=== PATIENT | male | born 1980 | race Caucasian/White ===

== ENCOUNTER 2017-08-12 16:39 | Emergency (ER) | payer MEDICAID, SELFPAY ==
[2017-08-12 17:05] VITALS: BP 146/92; PULSE 90; RESP 20; TEMP 37.2; O2SAT 98; BMI 20.7
--- NOTE | 2017-08-12 17:26 | HMH.EDUTC ---
[facility] [place] Clinical Impression: Sinusitis, acute Qualifiers: Sinusitis location: pansinusitis Recurrence: not specified as recurrent Qualified Code(s): J01.40 - Acute pansinusitis, unspecified Disposition: Home, Self-Care Condition on Discharge: Good Instructions: DI for Sinusitis Additional Instructions: * I understand you do not like injections and would rather not have an injection of steroid and antibiotic today. We discussed my concerns based on your symptom and why I suggested the injection. You can try pills first but if no improvement or ANY new or worsening symptoms, you need to follow up immediatley. * Start antibiotic and be sure to take as ordered for the FULL length of time even if you feel better. Sinus infections do not get better overnight. It may take 2-3 days to notice much improvement so be sure to use conservative measures as discussed for symptoms. * augmentin can cause GI side effects. Probiotics help prevent these symptoms. Ask the local pharmacist to help you find an over the counter probiotic * Start steroid today. * Flonase 2 sprays each nostril daily to help with nasal congestion, sinus and ear pressure/inflammation * Encourage fluids, water, gatorade, powerade, pedialyte if infant/toddler/child * warm salt water gargles * warm fluids * sore throat lozenges * sleep elevated * humidifier/vaporizer * sinus rinses Prescriptions: Amoxicillin/Potassium Clav [Augmentin 875-125 Tablet] 1 tab PO Q12H #20 tab Fluticasone Propionate [Flonase 50mcg nasal spray 16gm] 2 spr NS DAILY #1 bottle predniSONE [Prednisone 20mg Tab] 20 mg PO BID #6 tab Referrals: Aaron Ojeda MD [Primary Care Provider] - (Return to [facility] immediately for any new or worsening symptoms this but if no noticeable improvement by Tuesday, follow up with primary care. ) Time of Disposition: 17:32 Medical Decision Making Vital Signs: 08/12/17 17:05 Temperature 98.9 F Temperature Source Temporal Artery Scan Pulse Rate [Right Brachial] 90 Respiratory Rate 20 Blood Pressure [Right Arm] 146/92 Blood Pressure Mean [Right Arm] 110 Blood Pressure Source [Right Arm] Automatic Cuff Blood Pressure Position [Right Arm] Sitting 02 Sat by Pulse Oximetry 98 Oxygen Delivery Method Room Air - Lab Data Lab results reviewed: Yes: I reviewed the patient's lab results. Lab Results 08/12/17 17:05: Influenza Type A Ag Negative, Influenza Type B Ag Negative - [place] Inquiry Pt receiving controlled substance: No [facility] [place] - General Stated complaint: dental&sinus Time Seen by Provider: 08/12/17 17:07 Mode of Arrival: Ambulatory Source of Information: Patient Limitations: No Limitations Description of Symptoms (Recalled from Triage Doc. by RN): MARTINEZ, RUNNY NOSE, RT SIDE OF GUMS SORE HEENT Symptoms (Recalled from RN notes): Yes (MARTINEZ, RUNNY NOSE, RT SIDE OF GUMS SORE) Resp Symptoms (Recalled from RN notes): No Skin Symptoms (Recalled from RN notes): No MS Symptoms (Recalled from RN notes): No Functional Status (Recalled from RN notes): N/A - History of Present Illness Provider Complaint: Here w/ unknown relationship adult female c/o sinus pressure and dental pain right side only. Does not have any teeth. Full mouth extraction 10 years ago. Feels just like dry socket only on the right. Both upper and lower. Started w/ rhinorrhea, nasal congestion, PND over one week ago. Sinus pressure and pain started yesterday. Dental pain and lips feeling numb new today, only on right. Denies vision change, confusion, weakness. Tylenol once this morning but otherwise, hasn't taken or tried anything else. That did dull the sinus pain but came back. + smoker. - Related Data Previous Rx's Medication Instructions Recorded Amoxicillin/Potassium Clav 1 tab PO Q12H #20 tab 08/12/17 [Augmentin 875-125 Tablet] Fluticasone Propionate [Flonase 2 spr NS DAILY #1 bottle 08/12/17 50mcg nasal spray 16gm] predniSONE [Prednisone 20mg 20 mg
[2017-08-12 17:27] LABS: UTC Influenza A Antigen Negative (Negative); UTC Influenza B Antigen Negative (Negative)
--- NOTE | 2017-08-12 17:30 | ED_ITS ---
[facility] [place]ression: Sinusitis, acute Qualifiers: Sinusitis location: pansinusitis Recurrence: not specified as recurrent Qualified Code(s): J01.40 - Acute pansinusitis, unspecified Disposition: Home, Self-Care Condition on Discharge: Good Instructions: DI for Sinusitis Additional Instructions: * I understand you do not like injections and would rather not have an injection of steroid and antibiotic today. We discussed my concerns based on your symptom and why I suggested the injection. You can try pills first but if no improvement or ANY new or worsening symptoms, you need to follow up immediatley. * Start antibiotic and be sure to take as ordered for the FULL length of time even if you feel better. Sinus infections do not get better overnight. It may take 2-3 days to notice much improvement so be sure to use conservative measures as discussed for symptoms. * augmentin can cause GI side effects. Probiotics help prevent these symptoms. Ask the local pharmacist to help you find an over the counter probiotic * Start steroid today. * Flonase 2 sprays each nostril daily to help with nasal congestion, sinus and ear pressure/inflammation * Encourage fluids, water, gatorade, powerade, pedialyte if /toddler/ child * warm salt water gargles * warm fluids * sore throat lozenges * sleep elevated * humidifier/vaporizer * sinus rinses Prescriptions: Amoxicillin/Potassium Clav [Augmentin 875-125 Tablet] 1 tab PO Q12H #20 tab Fluticasone Propionate [Flonase 50mcg nasal spray 16gm] 2 spr NS DAILY #1 bottle predniSONE [Prednisone 20mg Tab] 20 mg PO BID #6 tab Referrals: Aaron Ojeda MD [Primary Care Provider] - (Return to [facility] immediately for any new or worsening symptoms this but if no noticeable improvement by Tuesday, follow up with primary care. ) Time of Disposition: 17:32 Medical Decision Making Vital Signs: 08/12/17 17:05 Temperature 98.9 F Temperature Source Temporal Artery Scan Pulse Rate [Right Brachial] 90 Respiratory Rate 20 Blood Pressure [Right Arm] 146/92 Blood Pressure Mean [Right Arm] 110 Blood Pressure Source [Right Arm] Automatic Cuff Blood Pressure Position [Right Arm] Sitting 02 Sat by Pulse Oximetry 98 Oxygen Delivery Method Room Air - Lab Data Lab results reviewed: Yes: I reviewed the patient's lab results. Lab Results 08/12/17 17:05: Influenza Type A Ag Negative, Influenza Type B Ag Negative - [place] Inquiry Pt receiving controlled substance: No [facility] [place] - General Stated complaint: dental&sinus Time Seen by Provider: 08/12/17 17:07 Mode of Arrival: Ambulatory Source of Information: Patient Limitations: No Limitations Description of Symptoms (Recalled from Triage Doc. by RN): MARTINEZ, RUNNY NOSE, RT SIDE OF GUMS SORE HEENT Symptoms (Recalled from RN notes): Yes (MARTINEZ, RUNNY NOSE, RT SIDE OF GUMS SORE) Resp Symptoms (Recalled from RN notes): No Skin Symptoms (Recalled from RN notes): No MS Symptoms (Recalled from RN notes): No Functional Status (Recalled from RN notes): N/A - History of Present Illness Provider Complaint: Here w/ unknown relationship adult female c/o sinus pressure and dental pain right side only. Does not have any teeth. Full mouth extraction 10 years ago. Feels just like dry socket only on the right. Both upper and lower. Started w/ rhinorrhea, nasal congestion, PND over one week ago. Sinus pressure and pain started yesterday. Dental pain and lips feeling numb new today, o
[2017-08-12 17:44] VITALS: BP 146/92; PULSE 90; RESP 20; TEMP 37.2; O2SAT 98
== END 2017-08-12 17:45 | disposition home or self-care (01) ==
PROVIDERS: Emergency Provider Nurse Practitioner Family; Family Provider Internal Medicine Adolescent Medicine; PCP Internal Medicine Adolescent Medicine
DX: J01.40 Acute pansinusitis, unspecified (principal)
CPT/HCPCS: 87804; 99202

== ENCOUNTER 2018-11-02 21:32 | Inpatient (IN) ==
[2018-11-02 22:03] LABS: Basophils # 0.1 K/mm3 (0-0.2); Basophils % 0.3 % (0.1-2.0); Eosinophils # 0.1 K/mm3 (0.0-0.4); Eosinophils % 0.5 % (0.1-12.0); Hematocrit 52.7 % (42.0-52.0); Lymphocytes # 2.8 K/mm3 (0.7-4.5); Lymphocytes % 13.5 % (10-50); Mean Corpuscular HGB Conc 34.9 g/dL (31.8-35.4); Mean Corpuscular Hemoglobin 31.3 pg (27.0-31.2); Mean Corpuscular Volume 89.7 fl (80-94); Mean Platelet Volume 7.1 fl (7.4-10.4); Monocytes # 1.4 K/mm3 (0.1-1.0); Monocytes % 6.8 % (1.7-9.3); Neutrophils # 16.7 K/mm3 (1.8-7.8); Neutrophils % 78.9 % (37.0-80.0); Platelet Count 363 K/mm3 (142-424); Red Blood Count 5.88 M/mm3 (4.60-6.20); Red Cell Distribution Width 14.1 % (11.5-17.5); White Blood Count 21.1 K/mm3 (4.8-10.8)
[2018-11-02 22:08] LABS: Albumin Level 4.2 gm/dL (3.4-5.0); Albumin/Globulin Ratio 1.1 (1.1-1.8); Anion Gap 16.6 mEq/L (5-15); Bilirubin,Total 0.8 mg/dL (0.2-1.0); C-Reactive Protein 4.8 mg/L (0.0-0.9); Globulin 3.7 gm/dl (1.3-3.2); Potassium 3.6 mmoL/L (3.5-5.1); Total Protein,Serum 7.9 gm/dL (6.4-8.2)
[2018-11-02 22:38] LABS: Lymphocytes % 21 % (10-50); Monocytes % 3 % (2-9); Neutrophils % 76 % (42-76); Total Cells Counted 100
[2018-11-02 22:39] LABS: RBC Morphology Normal
--- NOTE | 2018-11-02 23:08 | Emergency Department Note ---
ED Disposition Clinical Impression: Appendicitis, acute Qualifiers: Acute appendicitis type: unspecified acute appendicitis type Qualified Code(s): K35.80 - Unspecified acute appendicitis Disposition: Admitted As Inpatient Condition on Discharge: Good Referrals: Aaron Ojeda MD [Primary Care Provider] - - Critical Care Critical Care Time: No Attestation: On 11/02/18, the high probability of a clinically significant, sudden or life threatening deterioration of the following system(s) required my full and direct attention, intervention and personal management. The time I documented below is in addition to time spent performing reported procedures but includes the following listed in this critical care notation. Medical Decision Making - Medical Records Medical records reviewed: Yes: I reviewed the patient's medical records. - [place] Inquiry Pt receiving controlled substance: No Vital Signs: 11/02/18 21:33 11/02/18 22:29 Temperature 98.3 F 98.3 F Temperature Source Oral Oral Pulse Rate [Right Brachial] 112 H 88 Respiratory Rate 18 18 Blood Pressure [Right Arm] 140/98 H 128/78 Blood Pressure Mean [Right Arm] 112 94 Blood Pressure Source [Right Arm] Automatic Cuff Automatic Cuff Blood Pressure Position [Right Arm] Sitting Sitting 02 Sat by Pulse Oximetry 97 98 Oxygen Delivery Method Room Air Room Air - Lab Data Lab results reviewed: Yes: I reviewed the patient's lab results. Lab Results 11/02/18 21:44: WBC 21.1 H*, RBC 5.88, Hct 52.7 H, MCV 89.7, MCH 31.3 H, MCHC 34.9, RDW 14.1, Plt Count 363, MPV 7.1 L, Neut % (Auto) 78.9, Lymph % (Auto) 13.5, [place] % (Auto) 6.8, Eos % (Auto) 0.5, Baso % (Auto) 0.3, Neut # (Auto) 16.7 H, Lymph # (Auto) 2.8, [place] # (Auto) 1.4 H, Eos # (Auto) 0.1, Baso # (Auto) 0.1, Total Counted 100, Neutrophils % (Manual) 76, Lymphocytes % (Manual) 21, Monocytes % (Manual) 3, Platelet Estimate Normal, RBC Morphology Normal 11/02/18 21:44: Sodium 138, Potassium 3.6, Chloride 102, Carbon Dioxide 23, Anion Gap 16.6 H, BUN 7, Creatinine 1.03, Estimated Creat Clear 103, Estimated GFR 81, Est GFR ( Amer) 98, Glucose 102, Calcium 9.0, Total Bilirubin 0.8, AST 10 L, ALT 34, Alkaline Phosphatase 82, C-Reactive Protein 4.8 H, Total Protein 7.9, Albumin 4.2, Globulin 3.7 H, Albumin/Globulin Ratio 1.1, Amylase 42, Lipase 78 11/02/18 21:44: ESR 6 Result diagrams: 11/02/18 21:44 11/02/18 21:44 Orders (Tests/Meds): ED MEDICATIONS Generic Name Dose Route Start Last Admin Trade Name Freq PRN Reason Stop Dose Admin Sodium Chloride 1,000 mls @ 999 mls/hr 11/02/18 21:45 11/02/18 21:55 Sod Chlor 0.9% 1000ml Bag IV 11/02/18 22:45 999 mls/hr .Q1H1M MAEGAN Administration Discontinued Medications Generic Name Dose Route Start Last Admin Trade Name Freq PRN Reason Stop Dose Admin Ioversol 75 ml 11/02/18 22:19 11/02/18 22:20 Rad-Optiray 350 100ml Vial IV 11/02/18 22:20 75 ml ONCE ONE Administration Protocol Ketorolac Tromethamine 30 mg 11/02/18 21:44 11/02/18 21:55 Toradol 30mg/Ml Vial IV 11/02/18 21:45 30 mg ONCE ONE Administration Ondansetron HCl 4 mg 11/02/18 21:44 11/02/18 21:55 Zofran 4mg/2ml Vial IV 11/02/18 21:45 4 mg ONCE ONE Administration Sodium Chloride 10 ml 11/02/18 22:19 11/02/18 22:20 Rad-Saline Flush 10ml Syringe IV 11/02/18 22:20 10 ml ONCE ONE Administration ORDERS Category Date Time Status CT abdomen pelvis w con Stat Cat Scan 11/02/18 21:44 Taken Complete Blood Count Auto Diff Stat Lab 11/02/18 21:44 Results Urinalysis and Microscopic Stat Lab 11/02/18 21:43 Ordered - CT Data CT Scan: Abdomen, Pelvis Time Received: 23:[address] Reviewed: Yes: I have viewed the radiologist's interpretation Preliminary Findings: Abnormal (acute appendecitis ) - Physician Consults Physician Consulted: cash Reason -: Admission General Adult HPI - General Chief complaint: PAIN Stated complaint: r SIDE PAIN Time Seen by Provider: 11/02/18 21:50 Mode of Arrival: Family Vehicle Source of Information: Patient, Spouse, Medical Record Limitations: No Limitations Description of Symptoms (Recalled from ER Triage Doc. by RN): Pt c/o RLQ abd pain that started last night. No other symptoms reported at this time. - History of Present Illness HPI narrative: progressive pain rt lower abd with dec po intake Onset (ago): day(s) Location: abdomen Severity: moderate Associated symptoms: denies other symptoms Treatments prior to arrival: none - Related Data Home Medications Medication Instructions Recorded Confirmed No Known Home Medications 11/02/18 11/02/18 Allergies Allergy/AdvReac Type Severity Reaction Status Date / Time No Known Allergies Allergy Verified 11/02/18 21:42 [facility] History - Hepatitis A Screen Drug use history?: No High risk sexual behaviors?: No History of sexually transmitted infection?: No Currently employed?: No Childcare worker?: No Do you have indoor plumbing?: Yes Do you have electricity?: Yes Attestation statement:: This patient has been screened for Hepatitis A risk factors. I have reviewed the patient's past medical history: Yes Medical History: Reports:: Anxiety (especially involving needles), Chronic Obstructive Pulmonary Disease (COPD) Denies:: Cancer, Diabetes Mellitus Type 1, Diabetes Mellitus Type 2, MRSA Other Surgeries: Yes: No Previous Surgery, Hernia Repair Amputation: No Fractures: No - Social History Smoking Status: Current every day smoker Tobacco Type: cigarettes # Packs/Day (cigarettes): 1 Alcohol Intake: current Alcohol Intake Frequency:: holidays/special occasions only Occupational Status: employed Housing: house - Psychiatric History Expresses thoughts of harming self/others: None Suicide Plan Description: No Plan Pschychiatric History:: Reports:: Anxiety (especially involving needles) ROS Obtained: Yes All systems reviewed & no additional complaints - Constitutional Constitutional: Denies fever(s) - Eyes Eyes: Denies change in vision - ENT Ears, Nose, Mouth, and Throat: Denies sore throat - Cardiovascular Cardiovascular: Denies chest pain - Respiratory Respiratory: No cough - Gastrointestinal Gastrointestingal: Reports: as per HPI, abdominal pain, nausea, vomiting - Genitourinary Male Genitourinary: Denies hematuria - Musculoskeletal Musculoskeletal: Denies joint swelling - Integumentary/Breasts Skin/Breast: Denies rash - Neurologic Neurologic: Denies seizure-like activity Physical Exam - General General appearance: alert - Head Head exam: normocephalic - Eye Eye exam: Present: PERRL, EOMI. Absent: scleral icterus - ENT ENT exam: Present: mucous membranes dry - Neck Neck exam: Present: trachea midline - Respiratory Respiratory exam: Absent: respiratory distress - Cardiovascular Cardiovascular exam: Present: regular rate - Abdominal Exam Abdominal exam: Present: tenderness. Absent: rebound, rigidity Abdominal tenderness: Present: RLQ, moderate - Extremities Exam Extremities exam: Present: normal inspection - Neurological Exam Neurological exam: Present: alert, oriented X3, CN II-XII intact - Psychiatric Psychiatric exam: Present: normal affect - Skin Skin exam: Absent: rash
[2018-11-02 23:19] LABS: Hemoglobin 18.5 g/dL (14.1-18.0)
--- NOTE | 2018-11-03 06:11 | History & Physical Report ---
HPI HPI: This is a 38-year-old gentleman who presented to the emergency department overnight with increasing right lower quadrant pain. He presented with just over 24 hours of symptoms. Evaluation revealed leukocytosis and radiographic evidence of severe appendicitis with possible small periappendiceal abscess. Please see HPI from emergency department evaluation below. General Adult HPI - General Chief complaint: PAIN Stated complaint: r SIDE PAIN Time Seen by Provider: 11/02/18 21:50 Mode of Arrival: Family Vehicle Source of Information: Patient, Spouse, Medical Record Limitations: No Limitations Description of Symptoms (Recalled from ER Triage Doc. by RN): Pt c/o RLQ abd pain that started last night. No other symptoms reported at this time. - History of Present Illness HPI narrative: progressive pain rt lower abd with dec po intake Onset (ago): day(s) Location: abdomen Severity: moderate Associated symptoms: denies other symptoms Treatments prior to arrival: none [facility] History Medical History: Reports:: Anxiety (especially involving needles), Chronic Obstructive Pulmonary Disease (COPD) Denies:: Cancer, Diabetes Mellitus Type 1, Diabetes Mellitus Type 2, MRSA *Have you ever received a pneumonia vaccine?: No *Have you received a flu vaccine this season?: No Other Surgeries: Yes: No Previous Surgery, Hernia Repair (LEFT GROIN) Amputation: No Fractures: No - *Social History Educational Level: Completed High School Smoking Status: Current every day smoker Tobacco Type: cigarettes # Packs/Day (cigarettes): 1 Alcohol Intake: current Alcohol Intake Frequency:: holidays/special occasions only *Occupational Status:: employed Housing: other Household Members: significant other *Travel in the last 8 weeks: None - Psychiatric History Expresses thoughts of harming self/others: None Suicide Plan Description: No Plan Pschychiatric History:: Reports:: Anxiety (especially involving needles) Family Hx:: Coronary Artery Disease, Diabetes Review of Systems - Constitutional Reports anorexia - Eyes Denies change in vision - ENT Denies change in voice - *Cardiovascular Denies chest pain - *Respiratory Denies cough - *Gastrointestinal Reports abdominal pain, Reports nausea - *Genitourinary Denies difficulty urinating - *Musculoskeletal Denies abnormal walking - Integumentary/Breasts Denies bleeding lesions - *Neurologic Denies abnormal speech, Denies seizure-like activity - Psychiatric Denies anxiety - Endocrine Denies cold intolerance - Hematologic/Lymphatic Denies easy bleeding - Allergic/Immunologic Denies GI upset with certain foods Meds Home Medications Medication Instructions Recorded Confirmed Type No Known Home Medications 11/02/18 11/02/18 History Allergies Allergy/AdvReac Type Severity Reaction Status Date / Time No Known Allergies Allergy Verified 11/02/18 21:42 Exam Vital signs and Labs for Last 24 Hours: Temp Pulse Resp BP Pulse Ox 98.5 F 80 16 121/79 96 11/03/18 04:00 11/03/18 04:00 11/03/18 04:00 11/03/18 04:00 11/03/18 04:00 Laboratory Results - last 24 hr 11/02/18 21:44: WBC 21.1 H*, RBC 5.88, Hgb 18.5 H*, Hct 52.7 H, MCV 89.7, MCH 31.3 H, MCHC 34.9, RDW 14.1, Plt Count 363, MPV 7.1 L, Neut % (Auto) 78.9, Lymph % (Auto) 13.5, [place] % (Auto) 6.8, Eos % (Auto) 0.5, Baso % (Auto) 0.3, Neut # (Auto) 16.7 H, Lymph # (Auto) 2.8, [place] # (Auto) 1.4 H, Eos # (Auto) 0.1, Baso # (Auto) 0.1, Total Counted 100, Neutrophils % (Manual) 76, Lymphocytes % (Manual) 21, Monocytes % (Manual) 3, Platelet Estimate Normal, RBC Morphology Normal 11/02/18 21:44: Sodium 138, Potassium 3.6, Chloride 102, Carbon Dioxide 23, Anion Gap 16.6 H, BUN 7, Creatinine 1.03, Estimated Creat Clear 103, Estimated GFR 81, Est GFR ( Amer) 98, Glucose 102, Calcium 9.0, Total Bilirubin 0.8, AST 10 L, ALT 34, Alkaline Phosphatase 82, C-Reactive Protein 4.8 H, Total Protein 7.9, Albumin 4.2, Globulin 3.7 H, Albumin/Globulin Ratio 1.1, Amylase 42, Lipase 78 11/02/18 21:44: ESR 6 I & O for Last 24 hours: Intake & Output 10/31/18 11/01/18 11/02/18 11/03/18 11:59 11:59 11:59 11:59 Intake Total 1050 / 1050 Output Total 270 / 270 Balance 780 / 780 Weight 169 lb - Constitutional no acute distress - *Routine HEENT Exam Head: Present: normocephalic, atraumatic - *Routine Neck Exam Present: full ROM - Routine Chest/Breast/Axilla Exam Chest wall: Absent: tenderness - *Routine Respiratory Exam Absent: respiratory distress - *Routine Cardiovascular Exam Present: RRR - *Routine Abdominal Exam Present: soft, tenderness - *Routine Extremities Exam Present: full ROM. Absent: cyanosis, clubbing, edema - Routine Back/Spine/Pelvis Exam Back/Spine: Present: full ROM - *Routine Skin Exam Present: intact - *Routine Neurological Exam Present: alert, oriented X3 - Routine Psychiatric Exam Present: normal affect Results - Results Lab Results Last 24 Hours:: Laboratory Results - last 24 hr 11/02/18 21:44: WBC 21.1 H*, RBC 5.88, Hgb 18.5 H*, Hct 52.7 H, MCV 89.7, MCH 31.3 H, MCHC 34.9, RDW 14.1, Plt Count 363, MPV 7.1 L, Neut % (Auto) 78.9, Lymph % (Auto) 13.5, [place] % (Auto) 6.8, Eos % (Auto) 0.5, Baso % (Auto) 0.3, Neut # (Auto) 16.7 H, Lymph # (Auto) 2.8, [place] # (Auto) 1.4 H, Eos # (Auto) 0.1, Baso # (Auto) 0.1, Total Counted 100, Neutrophils % (Manual) 76, Lymphocytes % (Manual) 21, Monocytes % (Manual) 3, Platelet Estimate Normal, RBC Morphology Normal 11/02/18 21:44: Sodium 138, Potassium 3.6, Chloride 102, Carbon Dioxide 23, Anion Gap 16.6 H, BUN 7, Creatinine 1.03, Estimated Creat Clear 103, Estimated GFR 81, Est GFR ( Amer) 98, Glucose 102, Calcium 9.0, Total Bilirubin 0.8, AST 10 L, ALT 34, Alkaline Phosphatase 82, C-Reactive Protein 4.8 H, Total Protein 7.9, Albumin 4.2, Globulin 3.7 H, Albumin/Globulin Ratio 1.1, Amylase 42, Lipase 78 11/02/18 21:44: ESR 6 CT scan - abdomen: report reviewed, image reviewed CT scan - pelvis: report reviewed, image reviewed Assessment and Plan (1) Appendicitis, acute Current visit: Yes Status: Acute Qualifiers: Acute appendicitis type: with localized peritonitis Appendicitis gangrene presence: unspecified whether gangrene present Appendicitis perforation presence: with perforation Qualified Code(s): K35.80 - Unspecified acute appendicitis Category: Medical Code(s): K35.80 - Unspecified acute appendicitis Continue IV antibiotics To OR this morning for appendectomy and possible bowel resection I have discussed the risks and benefits including, but not limited to: Bleeding Infection Damage to surrounding tissue Inherent risks of sedation The patient agrees to proceed. NOTE: The patient presented overnight with evidence of severe appendicitis with small periappendiceal abscess. Fairly urgent appendectomy warranted; however, overall outcomes are generally improved with initially beginning IV antibiotics and avoiding intervention "after hours".
--- NOTE | 2018-11-03 07:43 | Pharmacy Consult Notes ---
[facility] Pharmacy VTE Monitoring - Patient Demographics Admission date: 11/02/18 Report Date: 11/03/18 Time: 07:42 Allergies/Adverse Reactions: Patient Allergies No Known Allergies Allergy (Verified 11/02/18 21:42) Height: 1.78 m Weight: 76.657 kg Patient Problems: Current Active Problems (Updated 11/03/18 @ 06:14 by Deni Pabon MD) Appendicitis, acute (Acute) - VTE Risk Labs: VTE Related Lab Results Hgb 18.5 g/dL (14.1-18.0) H* 11/02/18 21:44 Hct 52.7 % (42.0-52.0) H 11/02/18 21:44 Plt Count 363 K/mm3 (142-424) 11/02/18 21:44 BUN 7 mg/dL (7-18) 11/02/18 21:44 Creatinine 1.03 mg/dL (0.70-1.30) 11/02/18 21:44 Estimated Creat Clear 103 mL/min (50-200) 11/02/18 21:44 Was VTE Risk Assessment Performed: Yes VTE Score: 2 VTE Risk Level: Very Low Risk Clinical Trial Participant: No - Prophylaxis VTE Prophylaxis Ordered?: Yes Types of VTE Prophylaxis: TEDS Knee High
[2018-11-03 08:16] LABS: Basophils # 0.1 K/mm3 (0-0.2); Basophils % 0.3 % (0.1-2.0); Eosinophils # 0.1 K/mm3 (0.0-0.4); Eosinophils % 0.7 % (0.1-12.0); Hematocrit 44.5 % (42.0-52.0); Lymphocytes # 1.8 K/mm3 (0.7-4.5); Lymphocytes % 10.8 % (10-50); Mean Corpuscular HGB Conc 35.3 g/dL (31.8-35.4); Mean Corpuscular Hemoglobin 31.6 pg (27.0-31.2); Mean Corpuscular Volume 89.6 fl (80-94); Mean Platelet Volume 7.2 fl (7.4-10.4); Monocytes # 1.1 K/mm3 (0.1-1.0); Monocytes % 6.7 % (1.7-9.3); Neutrophils # 13.2 K/mm3 (1.8-7.8); Neutrophils % 81.4 % (37.0-80.0); Platelet Count 294 K/mm3 (142-424); Red Blood Count 4.96 M/mm3 (4.60-6.20); Red Cell Distribution Width 14.1 % (11.5-17.5); White Blood Count 16.2 K/mm3 (4.8-10.8)
[2018-11-03 08:51] LABS: Hemoglobin 15.8 g/dL (14.1-18.0)
--- NOTE | 2018-11-03 09:00 | Progress Note ---
[facility] Anesthesia Checklist - Patient Identification Patient Identification: Arm Band, Verbal (Name & ) - Structural Data Admitted From: Home Planned Operative Procedure/s: Laparoscopic appendectomy Consent for Planned Operative Procedure(s) Verified: Yes Verified Documents: Surgical Consent, History and Physical - NPO Status Verified Time NPO: 00:00 - Chart Verification Results Verified: CBC, BMP - Additional verifications Anesthesia Reactions: No - Airway Assessment C-Spine Mobility Assessed: Yes TMJ Mobility Assessed: Yes Dentition: Edentulous - Neurological Assessment Level of Consciousness: Awake Hx Seizures: No Numbness or tingling in extremities: No - Anesthesia Plan Anesthesia Risk discussed: Yes Anesthesia Plan: Verified ASA Class: II Anesthesia Type: General [facility] History I have reviewed the patient's past medical history: Yes Medical History: Reports:: Anxiety (especially involving needles), Chronic Obstructive Pulmonary Disease (COPD) Denies:: Cancer, Diabetes Mellitus Type 1, Diabetes Mellitus Type 2, MRSA *Have you ever received a pneumonia vaccine?: No *Have you received a flu vaccine this season?: No Other Surgeries: Yes: No Previous Surgery, Hernia Repair (LEFT GROIN) Amputation: No Fractures: No - *Social History Educational Level: Completed High School Smoking Status: Current every day smoker Tobacco Type: cigarettes # Packs/Day (cigarettes): 1 Alcohol Intake: current Alcohol Intake Frequency:: holidays/special occasions only *Occupational Status:: employed Housing: other Household Members: significant other *Travel in the last 8 weeks: None - Psychiatric History Expresses thoughts of harming self/others: None Suicide Plan Description: No Plan Pschychiatric History:: Reports:: Anxiety (especially involving needles) Family Hx:: Coronary Artery Disease, Diabetes
[2018-11-03 09:54] LABS: Lymphocytes % 10 % (10-50); Monocytes % 6 % (2-9); Neutrophils % 84 % (42-76); Total Cells Counted 100
--- NOTE | 2018-11-03 10:22 | Operative Note ---
Date of procedure: 11/03/18 Pre-op Diagnosis:: Perforated appendicitis with perforation and small periappendiceal abscess Post-op Diagnosis:: Perforated/necrotic appendicitis with small periappendiceal abscess Procedure performed:: Laparoscopic appendectomy Surgeon:: Deni Pabon MD Medical Interpreter(s):: Marlena MEAL COOK:: Owen Carrasco Anesthesia: GETA Estimated blood loss (mL): 15 Operative findings:: Necrosis of mid and distal appendix Perforation with focal abscess Operative note:: After informed consent was obtained the patient was taken to the operating room and placed in the supine position. General anesthesia was induced and his abdomen was prepped and draped in a sterile fashion. After infiltration with local anesthetic an infraumbilical incision was made. A Veress needle was placed in position. The abdomen was insufflated. A 12 mm optical trocar was placed in position. Under direct visualization a 5 mm trocar was placed in the suprapubic position and an additional 5 mm trocar was placed in the left lower quadrant. Evaluation revealed severe inflammatory changes throughout the right lower quadrant. The appendix was partially retrocecal with lateral projection. Careful blunt dissection was utilized to free the appendix from surrounding tissue. As the appendix was elevated a combination of blunt dissection and harmonic clementina were utilized to separate the appendix from surrounding inflammatory tissue and to then take down the mesoappendix. Obvious patchy necrosis of the mid and distal appendix noted. A small abscess cavity was encountered and changes consistent with focal perforation were seen. The appendix was then taken at its base utilizing and Endopath ETS Flex-45. The appendix was placed in a retrieval bag and removed through the infraumbilical trocar site. No active bleeding was noted. No sign of obvious injury was noted. The entire para-appendiceal region was thoroughly irrigated. The fluid was evacuated. Pneumoretroperitoneum was released as the trocars were removed. Fascia at the infraumbilical trocar site was reapproximated with 0 Ethibond. All wounds were irrigated. Skin was closed with 4-0 Monocryl in a subcuticular fashion. Steri-Strips were applied and the patient was transferred to recovery in stable condition after extubation. Condition: stable Disposition: PACU Specimens:: Appendix Complications:: No immediate
--- NOTE | 2018-11-03 10:31 | Progress Note ---
[facility] Anesthesia Record Part I Intake, IV Amount: 500 Estimated blood loss (mL): 20 Urine output (mL): 50 Blood Products used (#): none Blood Pressure: 154/74 SaO2: 97 Pulse Rate: 91 Respiratory Rate: 16 Temperature: 98.6 F Patient is:: Awake, Drowsy, Stable Stable to PACU at:: 10:25
--- NOTE | 2018-11-03 10:31 | Progress Note ---
[facility] Anesthesia Record Part II Discharge Time: 10:55 Destination: Medical Surgical Department PACU nurse assessment reviewed?: Yes Patient Condition:: Good Anesthesia Complications:: None Swallowing reflex intact?: Yes Cyanosis?: No
[2018-11-04 07:45] LABS: Basophils % 0.1 % (0.1-2.0); Eosinophils # 0.1 K/mm3 (0.0-0.4); Eosinophils % 0.4 % (0.1-12.0); Hematocrit 40.8 % (42.0-52.0); Lymphocytes # 1.8 K/mm3 (0.7-4.5); Lymphocytes % 8.8 % (10-50); Mean Corpuscular HGB Conc 34.4 g/dL (31.8-35.4); Mean Corpuscular Hemoglobin 31.1 pg (27.0-31.2); Mean Corpuscular Volume 90.5 fl (80-94); Mean Platelet Volume 7.2 fl (7.4-10.4); Monocytes # 1.3 K/mm3 (0.1-1.0); Monocytes % 6.2 % (1.7-9.3); Neutrophils # 17.7 K/mm3 (1.8-7.8); Neutrophils % 84.5 % (37.0-80.0); Platelet Count 290 K/mm3 (142-424); Red Cell Distribution Width 13.8 % (11.5-17.5); White Blood Count 20.9 K/mm3 (4.8-10.8)
[2018-11-04 08:02] LABS: Anion Gap 14.6 mEq/L (5-15); Calcium 8.2 mg/dL (8.5-10.1); Potassium 3.6 mmoL/L (3.5-5.1)
[2018-11-04 08:13] LABS: Hemoglobin 14.4 g/dL (14.1-18.0)
--- NOTE | 2018-11-04 09:35 | Progress Note ---
Subjective Narrative: Patient complains of some pain around his umbilical incision site. No nausea. Tolerating clear liquids. Exam Vital signs and Labs for Last 24 Hours: Temp Pulse Resp BP Pulse Ox 97.6 F 80 17 124/82 96 11/04/18 07:47 11/04/18 07:47 11/04/18 07:47 11/04/18 07:47 11/04/18 07:47 Laboratory Results - last 24 hr 11/03/18 07:32: Total Counted 100, Neutrophils % (Manual) 84 H, Lymphocytes % (Manual) 10, Monocytes % (Manual) 6, Platelet Estimate Normal, RBC Morphology Not Reportable 11/04/18 07:25: WBC 20.9 H* D, RBC 4.50 L, Hgb 14.4, Hct 40.8 L, MCV 90.5, MCH 31.1, MCHC 34.4, RDW 13.8, Plt Count 290, MPV 7.2 L, Neut % (Auto) 84.5 H, Lymph % (Auto) 8.8 L, [place] % (Auto) 6.2, Eos % (Auto) 0.4, Baso % (Auto) 0.1, Neut # (Auto) 17.7 H, Lymph # (Auto) 1.8, [place] # (Auto) 1.3 H, Eos # (Auto) 0.1, Baso # (Auto) 0.0 11/04/18 07:25: Sodium 140, Potassium 3.6, Chloride 105, Carbon Dioxide 24, Anion Gap 14.6, BUN 6 L, Creatinine 0.93, Estimated Creat Clear 120, Estimated GFR 91, Est GFR ( Amer) 110, Glucose 120 H, Calcium 8.2 L I & O for Last 24 hours: Intake & Output 11/01/18 11/02/18 11/03/18 11/04/18 11:59 11:59 11:59 11:59 Intake Total 2205 / 2205 1440 / 1440 Output Total 390 / 390 1150 / 1150 Balance 1815 / 1815 290 / 290 Weight 169 lb 173 lb - *Routine Abdominal Exam Present: soft Comments: Incisions dressed and clean Progress Note: A&P (1) Appendicitis, acute Status: Acute Current Visit: Yes Assessment and Plan for All Diagnoses:: Cautiously advance diet to full liquids. Continue antibiotics due to established regional peritonitis. He does have persistent leukocytosis.
[2018-11-04 09:48] LABS: Lymphocytes % 8 % (10-50); Monocytes % 5 % (2-9); Neutrophils % 87 % (42-76); RBC Morphology Normal; Total Cells Counted 100
[2018-11-05 07:26] LABS: Basophils % 0.3 % (0.1-2.0); Eosinophils # 0.1 K/mm3 (0.0-0.4); Eosinophils % 0.8 % (0.1-12.0); Hematocrit 38.7 % (42.0-52.0); Hemoglobin 13.5 g/dL (14.1-18.0); Lymphocytes # 2.4 K/mm3 (0.7-4.5); Lymphocytes % 20.6 % (10-50); Mean Corpuscular HGB Conc 34.9 g/dL (31.8-35.4); Mean Corpuscular Hemoglobin 31.6 pg (27.0-31.2); Mean Corpuscular Volume 90.6 fl (80-94); Mean Platelet Volume 7.3 fl (7.4-10.4); Monocytes # 0.8 K/mm3 (0.1-1.0); Monocytes % 6.4 % (1.7-9.3); Neutrophils # 8.4 K/mm3 (1.8-7.8); Neutrophils % 71.8 % (37.0-80.0); Platelet Count 259 K/mm3 (142-424); Red Blood Count 4.27 M/mm3 (4.60-6.20); Red Cell Distribution Width 13.9 % (11.5-17.5); White Blood Count 11.7 K/mm3 (4.8-10.8)
--- NOTE | 2018-11-05 09:21 | Progress Note ---
Subjective Narrative: Patient has tolerated full liquids. He states that he was ambulating the halls approximately 3 AM this morning. This morning he states that he was getting ready to take a nap. He still does have some minor soreness around the umbilical incision. Exam Vital signs and Labs for Last 24 Hours: Temp Pulse Resp BP Pulse Ox 98.3 F 83 17 140/92 H 98 11/05/18 07:55 11/05/18 07:55 11/05/18 07:55 11/05/18 07:55 11/05/18 07:55 Laboratory Results - last 24 hr 11/03/18 : Urine Color Yellow, Urine Appearance Clear, Urine pH 7.0, Ur Specific [place] 1.020, Urine Protein Trace, Urine Glucose (UA) Negative, Urine Ketones Negative, Urine Blood Trace-i, Urine Nitrate Negative, Urine Bilirubin Negative, Urine Urobilinogen 2.0, Ur Leukocyte Esterase Negative, Urine RBC 3-5 11/04/18 07:25: Total Counted 100, Neutrophils % (Manual) 87 H, Lymphocytes % (Manual) 8 L, Monocytes % (Manual) 5, Platelet Estimate Normal, RBC Morphology Normal 11/05/18 06:35: WBC 11.7 H D, RBC 4.27 L, Hgb 13.5 L, Hct 38.7 L, MCV 90.6, MCH 31.6 H, MCHC 34.9, RDW 13.9, Plt Count 259, MPV 7.3 L, Neut % (Auto) 71.8, Lymph % (Auto) 20.6, [place] % (Auto) 6.4, Eos % (Auto) 0.8, Baso % (Auto) 0.3, Neut # (Auto) 8.4 H, Lymph # (Auto) 2.4, [place] # (Auto) 0.8, Eos # (Auto) 0.1, Baso # (Auto) 0.0 I & O for Last 24 hours: Intake & Output 11/02/18 11/03/18 11/04/18 11/05/18 11:59 11:59 11:59 11:59 Intake Total 2205 / 2205 1440 / 1440 1440 / 1440 Output Total 390 / 390 1150 / 1150 Balance 1815 / 1815 290 / 290 1440 / 1440 Weight 169 lb 173 lb 177 lb 3 oz - Constitutional no acute distress - *Routine Abdominal Exam Present: soft Comments: Incisions clean and intact Progress Note: A&P (1) Appendicitis, acute Status: Acute Current Visit: Yes Assessment and Plan for All Diagnoses:: Continue to limit to full liquids. Continue intravenous antibiotics today. Monitor white blood cell count. Possible discharge tomorrow with continuation of outpatient oral antibiotic course.
[2018-11-06 07:00] LABS: Basophils # 0.1 K/mm3 (0-0.2); Basophils % 0.4 % (0.1-2.0); Eosinophils # 0.3 K/mm3 (0.0-0.4); Eosinophils % 2.1 % (0.1-12.0); Hematocrit 42.1 % (42.0-52.0); Lymphocytes # 1.8 K/mm3 (0.7-4.5); Lymphocytes % 13.7 % (10-50); Mean Corpuscular HGB Conc 35.5 g/dL (31.8-35.4); Mean Corpuscular Hemoglobin 31.7 pg (27.0-31.2); Mean Corpuscular Volume 89.4 fl (80-94); Monocytes % 7.9 % (1.7-9.3); Neutrophils # 9.8 K/mm3 (1.8-7.8); Platelet Count 332 K/mm3 (142-424); Red Blood Count 4.71 M/mm3 (4.60-6.20); Red Cell Distribution Width 13.8 % (11.5-17.5); White Blood Count 12.8 K/mm3 (4.8-10.8)
--- NOTE | 2018-11-06 10:08 | Progress Note ---
Subjective Patient reports: no new complaints Narrative: Patient has been ambulating. He has been tolerating diet. White blood cell count 12,000 which is stable but markedly improved from admission Exam Vital signs and Labs for Last 24 Hours: Temp Pulse Resp BP Pulse Ox 97.7 F 89 16 133/84 96 11/06/18 07:53 11/06/18 07:53 11/06/18 07:53 11/06/18 07:53 11/06/18 07:53 Laboratory Results - last 24 hr 11/06/18 06:05: WBC 12.8 H, RBC 4.71, Hgb 15.0 D, Hct 42.1, MCV 89.4, MCH 31.7 H, MCHC 35.5 H, RDW 13.8, Plt Count 332 D, MPV 7.0 L, Neut % (Auto) 76.0, Lymph % (Auto) 13.7, [place] % (Auto) 7.9, Eos % (Auto) 2.1, Baso % (Auto) 0.4, Neut # (Auto) 9.8 H, Lymph # (Auto) 1.8, [place] # (Auto) 1.0, Eos # (Auto) 0.3, Baso # (Auto) 0.1 I & O for Last 24 hours: Intake & Output 11/03/18 11/04/18 11/05/18 11/06/18 11:59 11:59 11:59 11:59 Intake Total 2205 / 2205 1440 / 1440 1440 / 1440 1080 / 1080 Output Total 390 / 390 1150 / 1150 Balance 1815 / 1815 290 / 290 1440 / 1440 1080 / 1080 Weight 169 lb 173 lb 177 lb 3 oz 172 lb 2 oz - *Routine HEENT Exam Head: Present: normocephalic Eye: Present: EOMI, PERRL ENT: Present: mucous membranes moist - *Routine Neck Exam Present: supple. Absent: lymphadenopathy - *Routine Respiratory Exam Present: CTA bilaterally - *Routine Cardiovascular Exam Present: RRR - *Routine Abdominal Exam Present: soft, normoactive bowel sounds. Absent: tenderness - *Routine Extremities Exam Absent: cyanosis, clubbing, edema - *Routine Skin Exam Present: warm. Absent: rash - *Routine Neurological Exam Present: alert, oriented X3 - Detailed Eye Exam Eyelids: Left normal inspection Progress Note: A&P (1) Appendicitis, acute Status: Acute Current Visit: Yes Assessment and Plan for All Diagnoses:: Discharge home today on additional 5 days of oral antibiotics. Due to abscessed appendicitis and persistent very minimal leukocytosis plan will be for discharge to complete oral antibiotic course.
--- NOTE | 2018-11-06 10:14 | Discharge Summary ---
General - General Admission date:: 11/02/18 Discharge date: 11/06/18 HPI HPI: This is a 38-year-old gentleman who presented to the emergency department overnight with increasing right lower quadrant pain. He presented with just over 24 hours of symptoms. Evaluation revealed leukocytosis and radiographic evidence of severe appendicitis with possible small periappendiceal abscess. Hospital Course Hospital Course: He was admitted and started on intravenous antibiotics. Patient was taken to the operating room at which time he underwent laparoscopic appendectomy. He was found to have evidence of necrotic appendicitis with focal periappendiceal abscess. Please see operative dictation for complete details. He was admitted postoperatively for convalescence and continuation of intravenous antibiotics. Upon presentation he had an appreciable leukocytosis of 21,000. This improved over the next couple of days with intravenous antibiotics. His diet was slowly advanced. Patient was ambulating and tolerating diet without difficulty. Leukocytosis improved to approximately 12,000 and was stable of a couple of days. He remained afebrile. Arrangements were made for discharge home on continuation of oral antibiotics for complete antibiotic course as an outpatient. He is given an additional 5 days of Augmentin 1000 mg and hydrocodone 5 mg (#17) for pain. Objective Vital signs: Temp Pulse Resp BP Pulse Ox 97.7 F 89 16 133/84 96 11/06/18 07:53 11/06/18 07:53 11/06/18 07:53 11/06/18 07:53 11/06/18 07:53 - Detailed Eye Exam Eyelids: Left normal inspection Results Labs on day of discharge: Labs from last 24 hours 11/06/18 06:05 WBC 12.8 H RBC 4.71 Hgb 15.0 D Hct 42.1 MCV 89.4 MCH 31.7 H MCHC 35.5 H RDW 13.8 Plt Count 332 D MPV 7.0 L Neut % (Auto) 76.0 Lymph % (Auto) 13.7 [place] % (Auto) 7.9 Eos % (Auto) 2.1 Baso % (Auto) 0.4 Neut # (Auto) 9.8 H Lymph # (Auto) 1.8 [place] # (Auto) 1.0 Eos # (Auto) 0.3 Baso # (Auto) 0.1 DS: Diagnosis - Discharge Diagnosis (1) Appendicitis, acute Status: Acute Discharge Plan - Patient Discharge Instructions ACTIVITY: No heavy lifting DIET: advance to your usual diet Patient Instructions: DI for Appendicitis -- Adult, Appendicitis, Surgical Site Infection, Appendectomy -- Laparoscopic Surgery - Follow up Plan Follow up with: Deni Pabon MD [Staff Physician] - 1 week Disposition: Home, Self-Long Term Medications: Home Medications Medication Instructions Recorded Confirmed Type No Known Home Medications 11/02/18 11/02/18 History Amoxicillin/Potassium Clav 2 tab PO Q12H #10 tab 11/06/18 Rx [Augmentin Xr 1,000-62.5 Tab] Hydrocod/Acet 5/325 mg [[place] 1 - 2 tab PO Q6HP PRN #17 tab 11/06/18 Rx 5/325mg tablet] Prescriptions/Medication Reconciliation: New Hydrocod/Acet 5/325 mg [[place] 5/325mg tablet] 1 - 2 tab PO Q6HP PRN #17 tab PRN Reason: Moderate Pain Amoxicillin/Potassium Clav [Augmentin Xr 1,000-62.5 Tab] 2 tab PO Q12H #10 tab Continued No Known Home Medications
== END 2018-11-06 11:25 | disposition home or self-care (01) | DRG 343 ==
LOC: ER 21:32 → 2ND 23:09
PROVIDERS: ADMIT Surgery; ATTEND Surgery
CPT/HCPCS: 36415; 74177; 80048; 80053; 81001; 82150; 83690; 85007; 85025; 85651; 86140; 96365; 96367; 96375; 99284; J1956; J2405; J2543; Q9967

== ENCOUNTER 2018-12-06 12:47 | Emergency (ER) | payer MEDICAID, SELFPAY ==
[2018-12-06 13:01] VITALS: BP 122/86; PULSE 79; RESP 18; TEMP 36.9; O2SAT 100; BMI 23.6
--- NOTE | 2018-12-06 13:08 | HMH.EDUTC ---
[facility] [place] Disposition Clinical Impression: Nausea Disposition: Home, Self-Care Condition on Discharge: Good Instructions: DI for Nausea -- Adult, Ondansetron Additional Instructions: Drink plenty of fluids. Take tylenol or ibuprofen for pain, but go to the ER if you start having abdominal pain or any worsening symptoms. Take the zofran for nausea. Off work today and tomorrow. Follow up with your regular doctor. Call your surgeon and let them know you are having nausea and came to the urgent care for it. GO TO THE ER FOR ANY WORSENING OR LIFE THREATENING SYMPTOMS Prescriptions: Ondansetron [Zofran 4mg ODT] 4 mg PO Q8HP PRN #20 tab.rapdis PRN Reason: Nausea Referrals: Aaron Ojeda MD [Primary Care Provider] - Forms: Work/School Release Time of Disposition: 13:10 Medical Decision Making - Medical Records Medical records reviewed: Yes: I reviewed the patient's medical records. - Aquiles Inquiry Pt receiving controlled substance: No Aquiles was queried for this patient: No Vital Signs: 12/06/18 13:01 12/06/18 13:11 Temperature 98.5 F 98 F Temperature Source Oral Oral Pulse Rate 65 Pulse Rate [Right Apical] 79 Respiratory Rate 18 18 Blood Pressure 126/66 Blood Pressure [Right Arm] 122/86 Blood Pressure Mean [Right Arm] 98 02 Sat by Pulse Oximetry 100 Oxygen Delivery Method Room Air Room Air [facility] [place] HPI - General Stated complaint: Sick to stomach Time Seen by Provider: 12/06/18 13:08 Mode of Arrival: Ambulatory Source of Information: Patient Limitations: No Limitations Description of Symptoms (Recalled from Triage Doc. by RN): PT C/O BEING VERY NAUSEATED. PT HAD AN APPENDECTOMY 11/13/18. HEENT Symptoms (Recalled from RN notes): No Resp Symptoms (Recalled from RN notes): No Skin Symptoms (Recalled from RN notes): No MS Symptoms (Recalled from RN notes): No Functional Status (Recalled from RN notes): N/A - History of Present Illness Provider Complaint: He refuses to go to the er. He states that he is having nausea and needs some nausea medication. If it gets worse or if he has any other symptoms he will go to the er. - Related Data Previous Rx's Medication Instructions Recorded Ondansetron [Zofran 4mg ODT] 4 mg PO Q8HP PRN #20 tab.rapdis 12/06/18 Allergies Allergy/AdvReac Type Severity Reaction Status Date / Time No Known Allergies Allergy Verified 11/13/18 10:26 - Worker's Comp Is this a Worker's Comp case?: No [facility] History - Hepatitis A Screen Drug use history?: No High risk sexual behaviors?: No History of sexually transmitted infection?: No Currently employed?: No Childcare worker?: No Do you have indoor plumbing?: Yes Do you have electricity?: Yes Attestation statement:: This patient has been screened for Hepatitis A risk factors. I have reviewed the patient's past medical history: Yes Medical History: Reports:: Anxiety, Chronic Obstructive Pulmonary Disease (COPD) Denies:: Cancer, Diabetes Mellitus Type 1, Diabetes Mellitus Type 2, MRSA, Seizures Other Surgeries: Yes: No Previous Surgery, Appendectomy, Hernia Repair Amputation: No Fractures: No - Social History Smoking Status: Current every day smoker Tobacco Type: cigarettes # Packs/Day (cigarettes): 1 Alcohol Intake: never Alcohol Intake Frequency:: holidays/special occasions only Occupational Status: employed Housing: other Household Members: significant other - Psychiatric History Expresses thoughts of harming self/others: None Suicide Plan Description: No Plan Pschychiatric History:: Reports:: Anxiety Family Hx:: Coronary Artery Disease, Diabetes ROS Obtained: Yes All systems reviewed & no additional complaints - Constitutional Constitutional: Denies chills, Denies fever(s), Denies poor appetite - ENT Ears, Nose, Mouth, and Throat: Denies sore throat - Cardiovascular Cardiovascular: Denies chest pain - Respiratory Respiratory: No chest congestion, No cough - G
[2018-12-06 13:11] VITALS: BP 126/66; PULSE 65; RESP 18; TEMP 36.6; O2SAT 100
--- NOTE | 2018-12-06 13:11 | ED_ITS ---
[facility] [place] [place] Disposition Clinical Impression: Nausea Disposition: Home, Self-Care Condition on Discharge: Good Instructions: DI for Nausea -- Adult, Ondansetron Additional Instructions: Drink plenty of fluids. Take tylenol or ibuprofen for pain, but go to the ER if you start having abdominal pain or any worsening symptoms. Take the zofran for nausea. Off work today and tomorrow. Follow up with your regular doctor. Call your surgeon and let them know you are having nausea and came to the urgent care for it. GO TO THE ER FOR ANY WORSENING OR LIFE THREATENING SYMPTOMS Prescriptions: Ondansetron [Zofran 4mg ODT] 4 mg PO Q8HP PRN #20 tab.rapdis PRN Reason: Nausea Referrals: Aaron Ojeda MD [Primary Care Provider] - Forms: Work/School Release Time of Disposition: 13:10 Medical Decision Making - Medical Records Medical records reviewed: Yes: I reviewed the patient's medical records. - Aquiles Inquiry Pt receiving controlled substance: No Aquiles was queried for this patient: No Vital Signs: 12/06/18 13:01 12/06/18 13:11 Temperature 98.5 F 98 F Temperature Source Oral Oral Pulse Rate 65 Pulse Rate [Right Apical] 79 Respiratory Rate 18 18 Blood Pressure 126/66 Blood Pressure [Right Arm] 122/86 Blood Pressure Mean [Right Arm] 98 02 Sat by Pulse Oximetry 100 Oxygen Delivery Method Room Air Room Air [facility] [place] [place] HPI - General Stated complaint: Sick to stomach Time Seen by Provider: 12/06/18 13:08 Mode of Arrival: Ambulatory Source of Information: Patient Limitations: No Limitations Description of Symptoms (Recalled from Triage Doc. by RN): PT C/O BEING VERY NAUSEATED. PT HAD AN APPENDECTOMY 11/13/18. HEENT Symptoms (Recalled from RN notes): No Resp Symptoms (Recalled from RN notes): No Skin Symptoms (Recalled from RN notes): No MS Symptoms (Recalled from RN notes): No Functional Status (Recalled from RN notes): N/A - History of Present Illness Provider Complaint: He refuses to go to the er. He states that he is having nausea and needs some nausea medication. If it gets worse or if he has any other symptoms he will go to the er. - Related Data Previous Rx's Medication Instructions Recorded Ondansetron [Zofran 4mg ODT] 4 mg PO Q8HP PRN #20 tab.rapdis 12/06/18 Allergies Allergy/AdvReac Type Severity Reaction Status Date / Time No Known Allergies Allergy Verified 11/13/18 10:26 - Worker's Comp Is this a Worker's Comp case?: No [facility] History - Hepatitis A Screen Drug use history?: No High risk sexual behaviors?: No History of sexually transmitted infection?: No Currently employed?: No Childcare worker?: No Do you have indoor plumbing?: Yes Do you have electricity?: Yes Attestation statement:: This patient has been screened for Hepatitis A risk factors. I have reviewed the patient's past medical history: Yes Medical History: Reports:: Anxiety, Chronic Obstructive Pulmonary Disease (COPD) Denies:: Cancer, Diabetes Mellitus Type 1, Diabetes Mellitus Type 2, MRSA, Seizures Other Surgeries: Yes: No Previous Surgery, Appendectomy, Hernia Repair Amputation: No Fractures: No - Social History Smoking Status: Current every day smoker Tobacco Type: cigarettes
== END 2018-12-06 13:14 | disposition home or self-care (01) ==
PROVIDERS: Emergency Provider Nurse Practitioner Family; PCP Internal Medicine Adolescent Medicine
DX: R11.0 Nausea (principal); K91.89 Other postprocedural complications and disorders of digestive system; J44.9 Chronic obstructive pulmonary disease, unspecified; F17.210 Nicotine dependence, cigarettes, uncomplicated; F41.9 Anxiety disorder, unspecified
CPT/HCPCS: 99201

== ENCOUNTER → 2020-10-15 15:10 | Outpatient (CLI) | payer OTHER, SELFPAY ==
--- NOTE | 2020-10-15 15:15 | XR_ITS ---
PROCEDURE: XR CHEST 2V CLINICAL HISTORY: ACUTE BRONCHOPNEUMONIA COMPARISON: CR CXR CHEST(2 VIEWS-NOT PORTABLE) from 04/12/2014 CR CXR CHEST(2 VIEWS-NOT PORTABLE) from 03/01/2017 CR CXR2V XR chest 2V from 06/18/2018 FINDINGS: The cardiomediastinal silhouette and pulmonary vascularity are within normal limits. The lungs are clear without infiltrates, suspicious nodules, or pleural effusions. No acute bony abnormalities. IMPRESSION: No acute findings. Dictated by: Walker Charlton MD 10/15/2020 15:49 Walker Charlton MD in [place] 10/15/2020 15:49
== END ==
PROVIDERS: PCP Internal Medicine Adolescent Medicine; Visit Provider Internal Medicine Adolescent Medicine
DX: J18.0 Bronchopneumonia, unspecified organism (principal)
CPT/HCPCS: 71046

== ENCOUNTER → 2021-06-28 04:07 | Outpatient (CLI) | payer OTHER, SELFPAY ==
[2021-06-28 04:26] LABS: Influenza A, PCR Not Detected (NotDetected); Influenza B, PCR Not Detected (NotDetected)
[2021-06-28 04:48] LABS: Coronavirus 19, PCR Detected (NotDetected)
== END ==
PROVIDERS: PCP Internal Medicine Adolescent Medicine; Visit Provider Emergency Medicine
DX: U07.1 COVID-19 (principal); R50.9 Fever, unspecified; R09.89 Other specified symptoms and signs involving the circulatory and respiratory systems
CPT/HCPCS: C9803; U0003; U0005

== ENCOUNTER → 2021-07-06 13:33 | Outpatient (CLI) | payer OTHER, SELFPAY | PROVIDERS: Visit Provider Nurse Practitioner | DX: U07.1 COVID-19 (principal) | CPT/HCPCS: C9803; U0003; U0005 ==

== ENCOUNTER 2021-10-31 13:51 | Emergency (ER) | payer OTHER, SELFPAY ==
[2021-10-31 14:07] VITALS: BP 131/93; PULSE 90; RESP 19; TEMP 36.6; O2SAT 98; BMI 25.1
--- NOTE | 2021-10-31 14:36 | HMH.EDUTC ---
[facility] [place] Clinical Impression: Gastroenteritis Disposition: Home, Self-Care Condition on Discharge: Good Instructions: Viral Gastroenteritis, DI for Viral Gastroenteritis -- Adult, Gastroenteritis Diet, Ondansetron Additional Instructions: Drink plenty of fluids. Take tylenol or ibuprofen for pain or fever. Take the medications as directed. Follow up with your regular doctor. GO TO THE ER FOR ANY WORSENING SYMPTOMS Prescriptions: Ondansetron [Zofran 4mg ODT] 4 mg PO Q8HP PRN #20 tab PRN Reason: Nausea Transmission Status: Received by [facility] Referrals: Aaron Ojeda MD [Primary Care Provider] - Forms: Work/School Release Time of Disposition: 14:43 Medical Decision Making - Medical Records Medical records reviewed: No: I reviewed the patient's medical records. - Aquiles Inquiry Pt receiving controlled substance: No Vital Signs: 10/31/21 14:07 10/31/21 14:54 Temperature 97.9 F 97.9 F Temperature Source Oral Pulse Rate 90 Pulse Rate [Left Radial] 90 Respiratory Rate 19 19 Blood Pressure 131/93 H Blood Pressure [Right Arm] 131/93 H Blood Pressure Mean [Right Arm] 105 02 Sat by Pulse Oximetry 98 - Lab Data Lab results reviewed: Yes: I reviewed the patient's lab results. Orders (Tests/Meds): ED MEDICATIONS Discontinued Medications Generic Name Dose Route Start Last Admin Trade Name Freq PRN Reason Stop Dose Admin Ondansetron HCl 4 mg 10/31/21 14:38 10/31/21 14:48 Ondansetron 4mg Odt SL 10/31/21 14:39 4 mg ONCE ONE Administration [facility] [place] - General Stated complaint: nausea, vomiting, diarrhea Time Seen by Provider: 10/31/21 14:37 Mode of Arrival: Ambulatory Source of Information: Patient Description of Symptoms (Recalled from Triage Doc. by RN): pt here with c/o nausea, vomitting and diarrhea that began last night HEENT Symptoms (Recalled from RN notes): No Resp Symptoms (Recalled from RN notes): No Skin Symptoms (Recalled from RN notes): No MS Symptoms (Recalled from RN notes): No Functional Status (Recalled from RN notes): wnl - History of Present Illness Provider Complaint: He states that he has had n/v/d since early this morning. He has had chilling, but no fever. He denies abdominal pain but he does have diffuse tenderness of his abdomen. - Related Data Previous Rx's Medication Instructions Recorded Ondansetron [Zofran 4mg ODT] 4 mg PO Q8HP PRN #20 tab.rapdis 12/06/18 Ondansetron [Zofran 4mg ODT] 4 mg PO Q8HP PRN #20 tab 10/31/21 Allergies Allergy/AdvReac Type Severity Reaction Status Date / Time No Known Allergies Allergy Verified 10/31/21 14:09 - Worker's Comp Is this a Worker's Comp case?: No [facility] History - Hepatitis A Screen Attestation statement:: This patient has been screened for Hepatitis A risk factors. I have reviewed the patient's past medical history: Yes Medical History: Reports:: Anxiety, Chronic Obstructive Pulmonary Disease (COPD) Denies:: Cancer, Diabetes Mellitus Type 1, Diabetes Mellitus Type 2, MRSA, Seizures Other Surgeries: Yes: No Previous Surgery, Appendectomy, Hernia Repair Amputation: No Fractures: No - Social History Smoking Status: Current every day smoker Tobacco Type: cigarettes # Packs/Day (cigarettes): 1 Alcohol Intake: never Alcohol Intake Frequency:: holidays/special occasions only Occupational Status: employed Housing: other Household Members: significant other - Psychiatric History Pschychiatric History:: Reports:: Anxiety Family Hx:: Coronary Artery Disease, Diabetes ROS Obtained: Yes All systems reviewed & no additional complaints - Constitutional Constitutional: Reports as per HPI - Eyes Eyes: Denies eye discharge - ENT Ears, Nose, Mouth, and Throat: Denies dizziness, Denies otalgia, Denies sore throat - Cardiovascular Cardiovascular: Denies chest pain - Respiratory Respiratory: Denies chest congestion, Reports cough
[2021-10-31 14:54] VITALS: BP 131/93; PULSE 90; RESP 19; TEMP 36.6
== END 2021-10-31 14:55 | disposition home or self-care (01) ==
PROVIDERS: Emergency Provider Nurse Practitioner Family; PCP Internal Medicine Adolescent Medicine
DX: K52.9 Noninfective gastroenteritis and colitis, unspecified (principal); J44.9 Chronic obstructive pulmonary disease, unspecified; F41.9 Anxiety disorder, unspecified; F17.210 Nicotine dependence, cigarettes, uncomplicated; Z79.51 Long term (current) use of inhaled steroids; Z79.52 Long term (current) use of systemic steroids; Z82.49 Family history of ischemic heart disease and other diseases of the circulatory system; Z83.3 Family history of diabetes mellitus
CPT/HCPCS: 99213; G0463

== ENCOUNTER 2021-11-23 14:35 | Emergency (ER) | payer OTHER, SELFPAY ==
[2021-11-23 14:43] VITALS: BP 123/89; PULSE 84; RESP 17; TEMP 36.6; O2SAT 96; BMI 25.1
--- NOTE | 2021-11-23 14:56 | HMH.EDUTC ---
[facility] [place] Clinical Impression: COPD exacerbation, Viral syndrome Disposition: Home, Self-Care Condition on Discharge: Good Instructions: DI for Chronic Obstructive Pulmonary Disease Additional Instructions: Drink plenty of fluids. Take tylenol or ibuprofen for pain or fever. Take the medications as directed. Follow up with your regular doctor. GO TO THE ER FOR ANY WORSENING SYMPTOMS Quarantine until you know the results of your covid-19 test. Notify your school or workplace of your results and follow their instructions regarding return to work/school. Don't start the oral steroids (prednisone) until tomorrow, since you had the shot here today. Prescriptions: Albuterol Sulfate [Albuterol Sulfate Hfa] 2 puffs IH Q6HP PRN 30 Days #1 each PRN Reason: Shortness Of Breath Transmission Status: Received by [facility] Amoxicillin/Potassium Clav [Amox-Clav 875-125 mg Tablet] 1 tab PO BID #20 tab Transmission Status: Received by [facility] Benzonatate [Benzonatate 100mg cap] 100 mg PO TIDP PRN #30 cap PRN Reason: Cough Transmission Status: Received by [facility] predniSONE [Deltasone 10mg tablet] 10 mg PO DAILY 9 Days #21 tab Transmission Status: Received by [facility] Referrals: Aaron Ojeda MD [Primary Care Provider] - Forms: Work/School Release Time of Disposition: 15:32 Medical Decision Making - Medical Records Medical records reviewed: No: I reviewed the patient's medical records. - Aquiles Inquiry Pt receiving controlled substance: No Vital Signs: 11/23/21 14:43 11/23/21 15:45 Temperature 97.9 F 97.9 F Temperature Source Oral Pulse Rate 84 Pulse Rate [Left Radial] 84 Respiratory Rate 17 17 Blood Pressure 123/89 Blood Pressure [Right Arm] 123/89 Blood Pressure Mean [Right Arm] 100 02 Sat by Pulse Oximetry 96 - Lab Data Lab results reviewed: Yes: I reviewed the patient's lab results. Lab Results 11/23/21 15:00: Influenza Type A Ag Negative, Influenza Type B Ag Negative 11/23/21 15:29: Chlamy pneumoniae PCR Not detected, Adenovirus (PCR) Not detected, B. pertussis DNA (PCR) Not detected, Coronavirus OC43 (PCR) Not detected, Coronavirus HKU1 (PCR) Not detected, Coronavirus 229E (PCR) Not detected, SARS-CoV-2 (PCR) Not detected, Coronavirus NL63 (PCR) Not detected, Human Metapneumovir PCR Not detected, Influenza A (H1) PCR Not detected, Influ A (H1N1/09) PCR Not detected, Influenza A (H3) PCR Not detected, Influenza Type A (PCR) Not detected, Influenza Type B (PCR) Not detected, M. pneumoniae (PCR) Not detected, Parainfluenza 1 (PCR) Not detected, Parainfluenza 2 (PCR) Not detected, Parainfluenza 3 (PCR) Not detected, Parainfluenza 4 (PCR) Not detected, RSV (PCR) Not detected, Entero/Rhino (PCR) Not detected Orders (Tests/Meds): ED MEDICATIONS Discontinued Medications Generic Name Dose Route Start Last Admin Trade Name Freq PRN Reason Stop Dose Admin Ceftriaxone Sodium 1 gm 11/23/21 15:20 11/23/21 15:20 Ceftriaxone 1gm Vial IM 11/23/21 15:21 1 gm ONCE ONE Administration Lidocaine HCl 0 ml 11/23/21 15:20 11/23/21 15:20 Lidocaine 1% 5ml Pf Vial IM 11/23/21 15:21 5 ml ONCE ONE Administration Methylprednisolone Sodium Succinate 125 mg 11/23/21 15:20 11/23/21 15:20 Methylprednisolone Sod Succ 125mg Vial IM 11/23/21 15:21 125 mg ONCE ONE Administration [facility] [facility] [place] - General Stated complaint: sore throat, drainage Time Seen by Provider: 11/23/21 14:56 Description of Symptoms (Recalled from Triage Doc. by RN): patient comes in today with complaints of chest congestion and head congestion. symptoms began last night HEENT Symptoms (Recalled from RN notes): Yes Resp Symptoms (Recalled from RN notes): Yes Skin Symptoms (Recalled from RN notes): No MS Symptoms (Recalled from RN notes): No Functional Status (Recalled from RN notes): wnl - History of Present Illness Provider Complaint: He
--- NOTE | 2021-11-23 14:59 | XR_ITS ---
FINAL REPORT CLINICAL HISTORY: cough, congestion COMPARISON: 10/15/2020 FINDINGS: Two views of the chest were obtained. The heart size and pulmonary vascularity are within normal limits. The mediastinum is normal. No acute pulmonary abnormality is identified. There is no pneumothorax. The bony thorax is intact. IMPRESSION: No active cardiopulmonary disease. Reviewed, Interpreted and Dictated by Freddy Price III, MD Transcribed by Guillermo Clark Authenticated and [facility]
[2021-11-23 15:14] LABS: UTC Influenza A Antigen Negative (Negative)
[2021-11-23 15:15] LABS: UTC Influenza B Antigen Negative (Negative)
[2021-11-23 15:45] VITALS: BP 123/89; PULSE 84; RESP 17; TEMP 36.6
[2021-11-23 15:56] LABS: Adenovirus,PCR Not Detected (NotDetected); Bordetella Pertussis Not Detected (NotDetected); Chlamydophila Pneumoniae, PCR Not Detected (NotDetected); Coronavirus 19, PCR Not Detected (NotDetected); Coronavirus 229E Not Detected (NotDetected); Coronavirus NL63 Not Detected (NotDetected); Coronavirus OC43 Not Detected (NotDetected); Coronovirus HKU1,PCR Not Detected (NotDetected); Human Metapneumovirus Not Detected (NotDetected); Influenza A, PCR Not Detected (NotDetected); Influenza AH1, 2009 Not Detected (NotDetected); Influenza AH1, PCR Not Detected (NotDetected); Influenza AH3,PCR Not Detected (NotDetected); Influenza B, PCR Not Detected (NotDetected); Mycoplasma Pneumoniae, PCR Not Detected (NotDetected); Parainfluenza 1, PCR Not Detected (NotDetected); Parainfluenza 2, PCR Not Detected (NotDetected); Parainfluenza 3, PCR Not Detected (NotDetected); Parainfluenza 4, PCR Not Detected (NotDetected); Respiratory Syncytial Virus Not Detected (NotDetected); Rhinovirus/Enterovirus Not Detected (NotDetected)
== END 2021-11-23 15:46 | disposition home or self-care (01) ==
PROVIDERS: Emergency Provider Nurse Practitioner Family; PCP Internal Medicine Adolescent Medicine
DX: J44.1 Chronic obstructive pulmonary disease with (acute) exacerbation (principal); B34.9 Viral infection, unspecified
CPT/HCPCS: 71046; 87581; 87632; 87798; 87804; 96372; 99212; C9803; G0463; J0696; U0003; U0005

== ENCOUNTER 2022-01-11 10:12 | Emergency (ER) | payer OTHER, SELFPAY ==
[2022-01-11 10:40] VITALS: BP 146/88; PULSE 78; RESP 18; TEMP 36.9; O2SAT 100; BMI 24.7
--- NOTE | 2022-01-11 11:01 | HMH.EDUTC ---
[facility] [place]ression: Nausea & vomiting Qualifiers: Vomiting type: unspecified Qualified Code(s): R11.2 - Nausea with vomiting, unspecified Disposition: Home, Self-Care Condition on Discharge: Good Instructions: DI for Nausea -- Adult, Nausea and Vomiting-Adult Additional Instructions: Drink extra fluids with and between meals. If you have difficulty drinking, try very small amounts of water or suck on ice chips. ? Avoid fruit juices, as these do not replace minerals and can actually increase diarrhea. ? Children and adults can use sports drinks to replenish electrolytes. Younger children and infants should use products formulated for children, like oral rehydration solutions. ? Eat food in small amounts and let your stomach recover. ? Get lots of rest. You may feel tired or weak. ? No greasy or fried foods for the next 24-48 hours BRAT diet Bananas Rice Apples and [place] ? Make sure to drink plenty of liquids ? Return if needed ? Straight to ER if any life threatening symptoms ? Zofran as prescribed ? Follow up with family doctor in the next 48-72 hours if no improvement or any worsening of symptoms Prescriptions: Ondansetron [Zofran 4mg ODT] 4 mg PO TIDP PRN #15 tab PRN Reason: Nausea Transmission Status: Sent to [facility] Referrals: Aaron Ojeda MD [Primary Care Provider] - As needed Forms: Work/School Release Time of Disposition: 11:28 Medical Decision Making - Aquiles Inquiry Pt receiving controlled substance: No Aquiles was queried for this patient: No Vital Signs: 01/11/22 10:40 01/11/22 11:32 Temperature 98.4 F 98.4 F Temperature Source Oral Pulse Rate 78 Pulse Rate [Left Brachial] 78 Respiratory Rate 18 18 Blood Pressure 146/88 H Blood Pressure [Left Arm] 146/88 H Blood Pressure Mean [Left Arm] 107 Blood Pressure Source [Left Arm] Automatic Cuff Blood Pressure Position [Left Arm] Sitting 02 Sat by Pulse Oximetry 100 Oxygen Delivery Method Room Air Orders (Tests/Meds): ED MEDICATIONS Discontinued Medications Generic Name Dose Route Start Last Admin Trade Name Freq PRN Reason Stop Dose Admin Ondansetron HCl 4 mg 01/11/22 11:01 01/11/22 11:03 Ondansetron 4mg Odt SL 01/11/22 11:02 4 mg ONCE ONE Administration Medical Decision Narrative: no vomiting after zofran patient sitting on exam table drinking sprite [facility] [place] - General Stated complaint: vomiting Time Seen by Provider: 01/11/22 11:01 Mode of Arrival: Ambulatory Source of Information: Patient Limitations: No Limitations Description of Symptoms (Recalled from Triage Doc. by RN): PATIENT C/O VOMITING SINCE YESTERDAY HEENT Symptoms (Recalled from RN notes): No Resp Symptoms (Recalled from RN notes): No Skin Symptoms (Recalled from RN notes): No MS Symptoms (Recalled from RN notes): No Functional Status (Recalled from RN notes): WNL - History of Present Illness Provider Complaint: Patient states that he has had N/V on and off since yesterday morning States zane the was at a festival over the weekend and not sure if he may have eat something bad or not States that he has been drinking ok but when he tries to eat something he feels sick at his stomach - Related Data Previous Rx's Medication Instructions Recorded Ondansetron [Zofran 4mg ODT] 4 mg PO TIDP PRN #15 tab 01/11/22 Allergies Allergy/AdvReac Type Severity Reaction Status Date / Time contact metal agent AdvReac Verified 11/23/21 14:43 oats AdvReac Verified 11/23/21 14:43 - Worker's Comp Is this a Worker's Comp case?: No [facility] History - Hepatitis A Screen Attestation statement:: This patient has been screened for Hepatitis A risk factors. I have reviewed the patient's past medical history: Yes Medical History: Reports:: Anxiety, Chronic Obstructive Pulmonary Disease (COPD) Denies:: Cancer, Diabetes Mellitus Type 1, Diabetes Mellitus Type 2, MRSA, Seizures Other Surgeries: Yes: No Prev
[2022-01-11 11:32] VITALS: BP 146/88; PULSE 78; RESP 18; TEMP 36.9; O2SAT 100
== END 2022-01-11 11:37 | disposition home or self-care (01) ==
PROVIDERS: Emergency Provider Nurse Practitioner; PCP Internal Medicine Adolescent Medicine
DX: R11.2 Nausea with vomiting, unspecified (principal); F17.210 Nicotine dependence, cigarettes, uncomplicated
CPT/HCPCS: 99212; G0463

== ENCOUNTER → 2022-01-12 13:01 | Outpatient (CLI) | payer OTHER, SELFPAY ==
[2022-01-12 13:20] LABS: Basophils # 0.1 K/mm3 (0-0.2); Basophils % 1.1 % (0.1-2.0); Eosinophils # 0.2 K/mm3 (0.0-0.4); Eosinophils % 1.5 % (0.1-12.0); Hematocrit 51.6 % (42.0-52.0); Lymphocytes # 2.2 K/mm3 (0.7-4.5); Mean Corpuscular Hemoglobin 31.6 pg (27.0-31.2); Mean Corpuscular Volume 95.7 fl (80-94); Mean Platelet Volume 7.7 fl (7.4-10.4); Monocytes # 0.6 K/mm3 (0.1-1.0); Monocytes % 5.8 % (1.7-9.3); Neutrophils # 7.3 K/mm3 (1.8-7.8); Neutrophils % 70.6 % (37.0-80.0); Platelet Count 380 K/mm3 (142-424); Red Blood Count 5.39 M/mm3 (4.60-6.20); Red Cell Distribution Width 14.4 % (11.5-17.5); White Blood Count 10.3 K/mm3 (4.8-10.8)
[2022-01-12 14:03] LABS: Alanine Aminotransferase 25 U/L (12-78); Albumin Level 4.4 g/dl (3.5-5.0); Albumin/Globulin Ratio 1.7 (1.1-1.8); Alkaline Phosphatase 64 U/L (38-126); Amylase 68 U/L (30-110); Anion Gap 9.1 mEq/L (5-15); Aspartate Amino Transferase 25 U/L (17-59); Bilirubin,Total 0.4 mg/dl (0.2-1.3); Blood Urea Nitrogen 7 mg/dl (9-20); Calcium 8.9 mg/dl (8.4-10.2); Carbon Dioxide 25 mmol/L (22.0-30.0); Chloride 107 mmol/L (98-107); Estimated Glomerular Filt Rate 93 ml/min (>60); GFR (African American) 113 ML/MIN (>60); Globulin 2.6 g/dL (1.3-3.2); Glucose 109 mg/dl (74-100); Lipase 40 U/L (23-300); Potassium 3.1 mmoL/L (3.5-5.1); Sodium 138 mmol/L (136-145)
== END ==
PROVIDERS: PCP Internal Medicine Adolescent Medicine; Visit Provider Nurse Practitioner Family
DX: R10.13 Epigastric pain (principal); K52.9 Noninfective gastroenteritis and colitis, unspecified
CPT/HCPCS: 36415; 80053; 82150; 83690; 85025

== ENCOUNTER 2022-01-28 09:45 | Emergency (ER) | payer OTHER, SELFPAY ==
[2022-01-28 10:24] VITALS: BP 132/91; PULSE 91; RESP 16; TEMP 37.3; O2SAT 98; BMI 25.1
--- NOTE | 2022-01-28 10:32 | HMH.EDUTC ---
[place] Disposition Clinical Impression: Viral syndrome, Exposure to COVID-19 virus, COPD exacerbation Disposition: Home, Self-Care Condition on Discharge: Good Instructions: DI for COVID-19 (Suspected or Confirmed ), Preventing the Spread of Coronavirus Discharge Instructions Additional Instructions: Drink plenty of fluids. Take tylenol or ibuprofen for pain or fever. Take the medications as directed. Follow up with your regular doctor. GO TO THE ER FOR ANY WORSENING SYMPTOMS Quarantine until you know the results of your covid-19 test. Notify your school or workplace of your results and follow their instructions regarding return to work/school. The cough medication (promethazine dm) will make you drowsy, so don't drive or operate heavy machinery after taking it. Prescriptions: Promethazine/Dextromethorphan [Promethazine-Dm Syrup] 5 ml PO Q6HP PRN #240 ml PRN Reason: Cough Transmission Status: Received by [facility] predniSONE [Deltasone 10mg tablet] 10 mg PO DAILY 9 Days #21 tab Transmission Status: Received by [facility] Azithromycin [Z-Evens 250mg Tab*] 250 mg PO UD DOSE PK #6 tab Transmission Status: Received by [facility] Referrals: Aaron Ojeda MD [Primary Care Provider] - Forms: Work/School Release Time of Disposition: 11:21 Medical Decision Making - Medical Records Medical records reviewed: No: I reviewed the patient's medical records. - Aquiles Inquiry Pt receiving controlled substance: No Vital Signs: 01/28/22 10:24 01/28/22 11:28 Temperature 99.1 F 99.1 F Temperature Source Oral Pulse Rate 91 H Pulse Rate [Left] 91 H Respiratory Rate 16 16 Blood Pressure 132/91 H Blood Pressure [Right Arm] 132/91 H Blood Pressure Mean [Right Arm] 104 02 Sat by Pulse Oximetry 98 [place] HPI - General Stated complaint: Cough, sore throat, fever, bodyaches Time Seen by Provider: 01/28/22 10:34 Mode of Arrival: Ambulatory Source of Information: Parent(s) Limitations: No Limitations Description of Symptoms (Recalled from Triage Doc. by RN): patient comes in for fever, coughing, sore throat, chills, body aches. symptoms began yesterday. HEENT Symptoms (Recalled from RN notes): Yes Resp Symptoms (Recalled from RN notes): Yes Skin Symptoms (Recalled from RN notes): No MS Symptoms (Recalled from RN notes): No Functional Status (Recalled from RN notes): n/a - History of Present Illness Provider Complaint: He states that for the past 2 days he has had worsening body aches, chills, low grade fever, chest congestion and nonproductive cough. He has a history of copd, but he states that this doesn't feel like a flare up of that. - Related Data Previous Rx's Medication Instructions Recorded Ondansetron [Zofran 4mg ODT] 4 mg PO TIDP PRN #15 tab 01/11/22 Azithromycin [Z-Evens 250mg Tab*] 250 mg PO UD DOSE PK #6 tab 01/28/22 Promethazine/Dextromethorphan 5 ml PO Q6HP PRN #240 ml 01/28/22 [Promethazine-Dm Syrup] predniSONE [Deltasone 10mg tablet] 10 mg PO DAILY 9 Days #21 tab 01/28/22 Allergies Allergy/AdvReac Type Severity Reaction Status Date / Time contact metal agent AdvReac Verified 01/28/22 10:28 oats AdvReac Verified 01/28/22 10:28 - Worker's Comp Is this a Worker's Comp case?: No [facility] History - Hepatitis A Screen Attestation statement:: This patient has been screened for Hepatitis A risk factors. 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
--- NOTE | 2022-01-28 10:37 | XR_ITS ---
FINAL REPORT CLINICAL HISTORY: cough, congestion, fever COMPARISON: November 23, 2021 FINDINGS: Two views of the chest were obtained. The heart size and pulmonary vascularity are within normal limits. The mediastinum is normal. No acute pulmonary abnormality is identified. There is no pneumothorax. The bony thorax is intact. IMPRESSION: No active cardiopulmonary disease. Reviewed, Interpreted and Dictated by Freddy Price III, MD Transcribed by Camille Shabazz Authenticated and [facility]
[2022-01-28 11:28] VITALS: BP 132/91; PULSE 91; RESP 16; TEMP 37.3
== END 2022-01-28 11:29 | disposition home or self-care (01) ==
PROVIDERS: Emergency Provider Nurse Practitioner Family; PCP Internal Medicine Adolescent Medicine
DX: U07.1 COVID-19 (principal); J02.9 Acute pharyngitis, unspecified; M79.10 Myalgia, unspecified site; J44.9 Chronic obstructive pulmonary disease, unspecified; F41.9 Anxiety disorder, unspecified; F17.210 Nicotine dependence, cigarettes, uncomplicated; Z79.52 Long term (current) use of systemic steroids; Z91.018 Allergy to other foods; Z91.048 Other nonmedicinal substance allergy status
CPT/HCPCS: 71046; 99213; C9803; G0463; U0003; U0005

== ENCOUNTER 2022-04-26 15:27 | Emergency (ER) | payer OTHER, SELFPAY ==
--- NOTE | 2022-04-26 18:24 | EXP.UTC ---
Discharge Plan Disposition Patient Disposition: Home, Self-Care Condition: Good Prescriptions Prescriptions: New ondansetron 4 mg tablet,disintegrating 4 mg PO Q8H PRN (Reason: nausea and vomiting) Qty: 10 0RF No Action ondansetron 4 MG tablet,disintegrating 4 mg PO TIDP PRN (Reason: Nausea) Qty: 15 0RF promethazine-DM 120 ML syrup 5 ml PO Q6HP PRN (Reason: Cough) Qty: 240 0RF prednisone 10 MG tablet 10 mg PO DAILY 9 Days Qty: 21 0RF Rx Instructions: Take 40 mg for 3 days, then take 20 mg for 3 days, then take 10 mg for 3 days, then stop. azithromycin 250 MG tablet 250 mg PO UD DOSE PK Qty: 6 0RF Rx Instructions: Take two (2) tablets today, then one (1) tablet days #2 thru #5 Referrals Follow up/Referrals: Aaron Ojeda MD [Primary Care Provider] - See instructions Activity Restrictions/Add. Instructions Additional Instructions/Restrictions: Drink extra fluids with and between meals. If you have difficulty drinking, try very small amounts of water or suck on ice chips. ? Avoid fruit juices, as these do not replace minerals and can actually increase diarrhea. ? Children and adults can use sports drinks to replenish electrolytes. Younger children and infants should use products formulated for children, like oral rehydration solutions. ? Eat food in small amounts and let your stomach recover. ? Get lots of rest. You may feel tired or weak. ? No greasy or fried foods for the next 24-48 hours BRAT diet Bananas Rice Apples and [place] ? Make sure to drink plenty of liquids ? Return if needed ? Straight to ER if any life threatening symptoms ? Zofran as prescribed ? You was given an outpatient order for diarrhea panel, please collect specimen and bring back to outpatient lab then call back to the [facility] or follow up with family doctor for results ? Follow up with family doctor in the next 48-72 hours if no improvement or any worsening of symptoms Clinical Impressions Clinical Impression: Nausea & vomiting Qualifiers: Vomiting type: unspecified Qualified Code(s): R11.2 - Nausea with vomiting, unspecified Stand Alone Forms Stand Alone Forms: Work/School Release Instructions Patient Instructions: Nausea and Vomiting-Adult, Ondansetron Discharge ED Provider: Amanda Dalton [facility] [place] HPI General Stated complaint: cough, vomiting Time Seen by Provider: 04/26/22 18:24 History of Present Illness Provider Complaint: Patient states that he has been having nausea and vomiting since yesterday States that he has COPD and always has a cough but yesterday hasnt been able to keep much down States that today he was still having N/V Related Data Previous Rx's Medication Instructions Recorded ondansetron 4 mg disintegrating 4 mg PO TIDP PRN Nausea #15 tabs 01/11/22 tablet azithromycin 250 mg tablet 250 mg PO UD DOSE PK #6 tabs 01/28/22 prednisone 10 mg tablet 10 mg PO DAILY 9 days #21 tabs 01/28/22 promethazine-DM 6.25 mg-15 mg/5 mL 5 ml PO Q6HP PRN Cough #240 mL 01/28/22 oral syrup ondansetron 4 mg disintegrating 4 mg PO Q8H PRN nausea and 04/26/22 tablet vomiting #10 tabs Allergies Allergy/AdvReac Type Severity Reaction Status Date / Time contact metal agent AdvReac Verified 04/26/22 18:32 oats AdvReac Verified 04/26/22 18:32 PFSH PFSH Social History Smoking Status: Current every day smoker tobacco type: cigarettes packs per day: 1 second hand exposure: Yes alcohol intake: never current occupational status: employed Travel in the last 8 weeks: None household members: significant other housing: other current occupational exposures/hazards: No caffeine: Yes ROS Obtained: Yes All systems reviewed & no additional complaints except as documented and Yes Systems reviewed as appropriate & no additional complaints except as doc
[2022-04-26 18:30] VITALS: BP 154/99; PULSE 76; RESP 18; TEMP 36.7; O2SAT 99; BMI 23.6
[2022-04-26 19:37] VITALS: BP 154/99; PULSE 76; RESP 18; TEMP 36.7
== END 2022-04-26 19:38 | disposition home or self-care (01) ==
PROVIDERS: Emergency Provider Nurse Practitioner; PCP Internal Medicine Adolescent Medicine
DX: R11.2 Nausea with vomiting, unspecified (principal); J44.9 Chronic obstructive pulmonary disease, unspecified; F17.210 Nicotine dependence, cigarettes, uncomplicated; Z79.52 Long term (current) use of systemic steroids; Z79.899 Other long term (current) drug therapy; Z91.018 Allergy to other foods; Z91.048 Other nonmedicinal substance allergy status
CPT/HCPCS: 99213; G0463

== ENCOUNTER 2022-07-15 15:45 | Emergency (ER) | payer OTHER, SELFPAY ==
--- NOTE | 2022-07-15 16:36 | EXP.UTC ---
Discharge Plan Disposition Patient Disposition: Home, Self-Care Condition: Good Prescriptions Prescriptions: New methylprednisolone 4 mg Tablets,Dose Pack 4 mg PO DIRECTED Qty: 21 0RF Referrals Follow up/Referrals: Williams Berkowitz DO [Staff Physician] - See instructions Aaron Ojeda MD [Primary Care Provider] - See instructions Activity Restrictions/Add. Instructions Additional Instructions/Restrictions: Rest the extremity. Take the medications as directed. Follow up with Dr. Berkowitz (orthopedics). I put in a referral but you need to call his office and schedule an appointment. Follow up with your regular doctor. GO TO THE ER FOR ANY WORSENING SYMPTOMS Clinical Impressions Clinical Impression: Acute pain of right hip Stand Alone Forms Stand Alone Forms: Work/School Release Instructions Patient Instructions: DI for Osteoarthritis, DI for Hip Pain Discharge ED Provider: Wilton Kelly [facility] General Stated complaint: R hip pain Time Seen by Provider: 07/15/22 16:36 History of Present Illness Provider Complaint: He states that for the past 2 days he has had right hip pain. He denies any known injury. He denies any other joint pain or complaints. Related Data Previous Rx's Medication Instructions Recorded methylprednisolone 4 mg tablets in 4 mg PO DIRECTED #21 tabs 07/15/22 a dose pack Allergies Allergy/AdvReac Type Severity Reaction Status Date / Time contact metal agent AdvReac Verified 07/15/22 16:59 oats AdvReac Verified 07/15/22 16:59 [facility] Disclaimer: The information contained in this section may have been updated after the patient was seen, as this information can be updated by other users. Social History Smoking Status: Current every day smoker tobacco type: cigarettes packs per day: 1 second hand exposure: Yes alcohol intake: never current occupational status: employed Travel in the last 8 weeks: None household members: significant other housing: other current occupational exposures/hazards: No caffeine: Yes ROS Obtained: Yes All systems reviewed & no additional complaints except as documented Constitutional Constitutional: Denies chills and Denies fever(s) Integumentary/Breasts Skin/Breast: Denies redness, Denies rash and Denies wounds Neurologic Neurologic: Denies paresthesias Physical Exam General General appearance: alert and in no apparent distress Head Head exam: atraumatic, normocephalic and normal inspection Eye Eye exam: Present normal appearance, PERRL and EOMI ENT ENT exam: Present normal exam, normal oropharynx, mucous membranes moist, TM's normal bilaterally and normal external ear exam Neck Neck exam: Present normal inspection, full ROM and trachea midline; Absent meningismus or lymphadenopathy Chest Chest inspection: Present normal inspection and symmetric chest wall rise; Absent tenderness Respiratory Respiratory exam: Present normal lung sounds bilaterally; Absent respiratory distress Cardiovascular Cardiovascular exam: Present regular rate and normal rhythm; Absent JVD Abdominal Exam Abdominal exam: Present soft and normal bowel sounds; Absent distention, tenderness or guarding Extremities Exam Extremities exam: Present normal capillary refill; Absent calf tenderness Expanded Lower Extremity Exam Right: Hip/Pelvis exam: Present full ROM and tenderness; Absent pelvis stable, swelling, ecchymosis, deformity, dislocation, external rotation, internal rotation, shortening of leg, pain on hip/pelvis palpation, hip pain on leg movement, erythema, crepitus, laceration or abrasion Upper leg exam: Present normal inspection and full ROM; Absent tenderness Knee exam: Present normal inspection and full ROM; Absent tenderness Neurovascular/Tendon exam: Present normal capillary refill; Absent pulse deficit or motor deficit Gait: observe
[2022-07-15 16:40] VITALS: BP 154/97; PULSE 86; RESP 20; TEMP 36.9; O2SAT 96; BMI 24.3
--- NOTE | 2022-07-15 16:52 | XR_ITS ---
PROCEDURE INFORMATION: Exam: XR Right Hip Exam date and time: 07/15/2022 5:12 PM Age: 42 years old Clinical indication: Hip pain; Right hip; Additional info: Right hip pain, no injury TECHNIQUE: Imaging protocol: Radiologic exam of the Right hip. Views: 2 or 3 views hip with pelvis when performed. COMPARISON: No relevant prior studies available. FINDINGS: Bones/joints: No fracture, subluxation or significant degenerative change. 5 mm synovial pit right femoral neck. No suspicious bony lesion. Soft tissues: Unremarkable. IMPRESSION: No fracture, subluxation or significant degenerative change.
[2022-07-15 17:37] VITALS: BP 154/97; PULSE 86; RESP 20; TEMP 36.9; O2SAT 96
== END 2022-07-15 17:36 | disposition home or self-care (01) ==
PROVIDERS: Emergency Provider Nurse Practitioner Family; PCP Internal Medicine Adolescent Medicine
DX: M25.551 Pain in right hip (principal)
CPT/HCPCS: 73502; 99212; 99213; G0463

== ENCOUNTER → 2022-07-20 11:56 | Outpatient (CLI) | payer OTHER, SELFPAY ==
--- NOTE | 2022-07-20 12:02 | XR_ITS ---
FINAL REPORT CLINICAL HISTORY: hip pain FINDINGS: 2 views of the left hip and an AP pelvis were obtained. There is no acute fracture or dislocation. The joint spaces are intact. There are no soft tissue abnormalities. IMPRESSION: No acute process. Reviewed, Interpreted and Dictated by Ismael Davidson MD Transcribed by Guillermo Clark Authenticated and [facility]
== END ==
PROVIDERS: PCP Internal Medicine Adolescent Medicine; Visit Provider Orthopaedic Surgery
DX: M25.552 Pain in left hip (principal)
CPT/HCPCS: 73502

== ENCOUNTER → 2022-08-10 08:04 | Outpatient (CLI) | payer OTHER, SELFPAY ==
--- NOTE | 2022-08-10 08:04 | MR_ITS ---
FINAL REPORT CLINICAL HISTORY: hip pain AND buttox pain. no injury or trauma FINDINGS: Multiplanar and multisequence imaging of the right hip were obtained without contrast. There is a small subchondral cyst in the right acetabulum. There is no acute fracture, contusion or pathologic marrow replacement. The joint spaces preserved. There is no evidence of AVN. The labrum is intact. No convincing labral tear is identified. There is abnormal signal intensity surrounding the gluteus medius and minimus tendons along the greater trochanter consistent with strain. No tear is identified. Remaining soft tissues are unremarkable. IMPRESSION: Strain of the gluteus medius and minimus tendons. Reviewed, Interpreted and Dictated by Carly Jean MD Transcribed by Leticia Bryant Authenticated and [facility]
== END ==
PROVIDERS: PCP Internal Medicine Adolescent Medicine; Visit Provider Orthopaedic Surgery
DX: M25.551 Pain in right hip (principal)
CPT/HCPCS: 73721

== ENCOUNTER 2022-10-28 09:59 | Emergency (ER) | payer OTHER, SELFPAY ==
[2022-10-28 10:10] VITALS: BP 171/102; PULSE 83; RESP 18; TEMP 36.7; O2SAT 98; BMI 24.5
--- NOTE | 2022-10-28 10:27 | EXP.UTC ---
Discharge Plan Disposition Patient Disposition: Home, Self-Care Condition: Good Prescriptions Prescriptions: New methocarbamol 500 mg tablet 500 mg PO TID PRN (Reason: muscle spasm) Qty: 15 0RF ibuprofen 600 mg tablet 600 mg PO Q6HP PRN (Reason: Moderate Pain) Qty: 20 0RF azithromycin [Zithromax Z-Evens] 250 mg tablet See Rx Instructions .ROUTE .COMPLEX 5 Days Qty: 6 0RF Rx Instructions: For 250 mg dose pack: take 500 mg today (day 1), then 250 mg for 4 days (days 2-5) Referrals Follow up/Referrals: Aaron Ojeda MD [Primary Care Provider] - See instructions Activity Restrictions/Add. Instructions Additional Instructions/Restrictions: *Monitor Temp, Over the counter Motrin or Tylenol as directed/as needed Tylenol every 4 hours and Motrin every 6 hours (as long as your family doctor has told you that you can take it) for fever or pain. and straight to ER if unable to lower temp less than 101.0 after medication given *Warm salt water gargles may help to soothe the throat *Throat Lozenges? *Warm fluids like tea with honey may help to soothe the throat? *Sleep elevated *Humidifier/Vaporizer *Ibuprofen lilly 6 hours with meal as needed for pain/inflammation *Remember you had a Toradol shot in the clinic today, which is similar to Motrin *Not additional anti-inflammatory like motrin, aleve, advil with the above amount of ibuprofen. You can still take Tylenol every 4 hours as needed if you need something else for pain *Ice 20 minutes every 2 hours for the first 48 hours after the initial injury followed by moist heat every 20 minutes 3-4 times a day to affected area *Muscle relaxer every 8 hours as needed for muscle spasms but remember, it WILL cause drowsiness You cannot take it and drive, operate machinery or care for small children. *Keep this area active, no movement leads to more stiffness, However take it easy and avoid heavy lifting pushing or pulling *Follow up with you family doctor if no improvement for further treatment Follow up IMMEDIATELY for new or worsening symptoms or no Noticeable improvement over the next 48-72 hours. 911 for difficulty breathing or swallowing Discharge ED Provider: Amanda Dalton [facility] HPI General Stated complaint: Back pain, drainage, congestion, headache Mode of Arrival: Ambulatory Source of Information: Patient Limitations: No Limitations Time Seen by Provider: 10/28/22 10:27 Description of Symptoms (Recalled from Triage Doc. by RN): pt c/o sinus congestion/drainage/pressure and a MARTINEZ x3d. pt also c/o lower R sided back pain and spasms since 10/26 HEENT Symptoms (Recalled from RN notes): Yes Resp Symptoms (Recalled from RN notes): No Skin Symptoms (Recalled from RN notes): No MS Symptoms (Recalled from RN notes): Yes Functional Status (Recalled from RN notes): wnl History of Present Illness Provider Complaint: Patient states that he has been having sinus pain and pressure, drainage in the back of his throat, and headache, States that he has also been having pain and spasms in his right lower back feels like muscle spasms thinks he may have pulled something at work Denies loss of control of bowel or bladder Related Data Previous Rx's Medication Instructions Recorded azithromycin 250 mg tablet See Rx Instructions PO .COMPLEX 5 10/28/22 (Zithromax Z-Evens) days #6 tabs ibuprofen 600 mg tablet 600 mg PO Q6HP PRN Moderate Pain 10/28/22 #20 tabs methocarbamol 500 mg tablet 500 mg PO TID PRN muscle spasm #15 10/28/22 tabs Allergies Allergy/AdvReac Type Severity Reaction Status Date / Time contact metal agent AdvReac Verified 10/28/22 10:21 oats AdvReac Verified 10/28/22 10:21 Worker's Comp Is this a Worker's Comp case?: No [facility] Disclaimer: The information contained in this section may have been updated after the patient was seen, as this information can be updated by other users. Social History (Reviewed 08/31/22 @ 08:52 by Mary Ellen
[2022-10-28 10:32] VITALS: BP 154/98
[2022-10-28 10:38] LABS: Apearance,Urine Clear (Clear); Color,Urine Yellow (Yellow)
[2022-10-28 10:39] LABS: Bilirubin,Urine Negative (Negative); Blood, Urine Trace (Negative); Glucose,Urine (UA) Negative (Negative); Ketones,Urine Negative (Negative); Protein,Urine Negative (Negative); Specific Gravity, Urine 1.015 (1.005-1.030); UTC Leukocyte Esterase,Urine Negative (Negative); UTC Nitrate,Urine Negative (Negative); Urobilinogen,Urine 0.2 EU/dl (0.2)
[2022-10-28 10:46] VITALS: BP 154/98; PULSE 83; RESP 18; TEMP 36.7
== END 2022-10-28 11:06 | disposition home or self-care (01) ==
PROVIDERS: Emergency Provider Nurse Practitioner; PCP Internal Medicine Adolescent Medicine
DX: J01.90 Acute sinusitis, unspecified (principal); M54.50 Low back pain, unspecified; M62.830 Muscle spasm of back; F17.210 Nicotine dependence, cigarettes, uncomplicated
CPT/HCPCS: 81003; 96372; 99212; 99214; G0463

== ENCOUNTER 2023-01-17 10:57 | Emergency (ER) | payer OTHER, SELFPAY ==
[2023-01-17 10:57] VITALS: BP 142/97; PULSE 98; RESP 16; TEMP 36.7; O2SAT 97; BMI 23.6
--- NOTE | 2023-01-17 11:15 | EXP.UTC ---
Discharge Plan Disposition Patient Disposition: Home, Self-Care Condition: Good Prescriptions Prescriptions: New ibuprofen 600 mg tablet 600 mg PO Q6HP PRN (Reason: Moderate Pain) Qty: 20 0RF methocarbamol 500 mg tablet 500 mg PO TID PRN (Reason: muscle spasm) Qty: 12 0RF methylprednisolone [Medrol (Evens)] 4 mg tablets,dose pack See Rx Instructions .Route .COMPLEX 6 Days Qty: 21 0RF Rx Instructions: taper pack; No Action methocarbamol 500 mg tablet 500 mg PO TID PRN (Reason: muscle spasm) Qty: 15 0RF ibuprofen 600 mg tablet 600 mg PO Q6HP PRN (Reason: Moderate Pain) Qty: 20 0RF azithromycin [Zithromax Z-Evens] 250 mg tablet See Rx Instructions .ROUTE .COMPLEX 5 Days Qty: 6 0RF Rx Instructions: For 250 mg dose pack: take 500 mg today (day 1), then 250 mg for 4 days (days 2-5) Referrals Follow up/Referrals: Aaron Ojeda MD [Primary Care Provider] - See instructions Activity Restrictions/Add. Instructions Additional Instructions/Restrictions: *Ibuprofen lilly 6 hours with meal as needed for pain/inflammation *Remember you had a Toradol shot in the clinic today, which is similar to Motrin so do not start until 10pm tonight *Not additional anti-inflammatory like motrin, aleve, advil with the above amount of ibuprofen. You can still take Tylenol every 4 hours as needed if you need something else for pain *Ice 20 minutes every 2 hours for the first 48 hours after the initial injury followed by moist heat every 20 minutes 3-4 times a day to affected area *Muscle relaxer every 8 hours as needed for muscle spasms but remember, it WILL cause drowsiness You cannot take it and drive, operate machinery or care for small children. Start oral Medrol Dose pack tomorrow 01/18/23 *Keep this area active, no movement leads to more stiffness, However take it easy and avoid heavy lifting pushing or pulling *Follow up with you family doctor if no improvement for further treatment Clinical Impressions Clinical Impression: Low back pain Qualifiers: Chronicity: unspecified Back pain laterality: left Sciatica presence: with sciatica Sciatica laterality: sciatica of left side Qualified Code(s): M54.42 - Lumbago with sciatica, left side Stand Alone Forms Stand Alone Forms: Work/School Release Instructions Patient Instructions: Low Back Pain, DI for Low Back Pain, DI for Sciatica Discharge ED Provider: Amanda Dalton [facility] General Stated complaint: back pain, no accident Mode of Arrival: Ambulatory Source of Information: Patient Limitations: No Limitations Time Seen by Provider: 01/17/23 11:16 Description of Symptoms (Recalled from Triage Doc. by RN): Patient states he was walking across his living room when he coughed and it threw his back out. States that his left lower back is hurting and it goes down into his leg. HEENT Symptoms (Recalled from RN notes): No Resp Symptoms (Recalled from RN notes): No Skin Symptoms (Recalled from RN notes): No MS Symptoms (Recalled from RN notes): Yes Functional Status (Recalled from RN notes): wnl History of Present Illness Provider Complaint: Patient states that he has a bad back and gets sciatica sometimes States that he was walking at home when he coughed and threw his back out States that he is having pain in his left lower back that goes down into left hip and leg like he has had before States that happened on Tuesday and he has not been able to return due to the pain so today he came in to get it checked Denies loss of control of bowel or bladder Related Data Previous Rx's Medication Instructions Recorded azithromycin 250 mg tablet See Rx Instructions PO .COMPLEX 5 10/28/22 (Zithromax Z-Evens) days #6 tabs ibuprofen 600 mg tablet 600 mg PO Q6HP PRN Moderate Pain 10/28/22 #20 tabs methocarbamol 500 mg tablet 500 mg PO TID PRN muscle spasm #15 10/28/22 tabs ibuprofen 600 mg tablet 600 mg PO Q6HP PRN Moderate Pain 01/17/23 #20 tabs met
[2023-01-17 11:51] VITALS: BP 142/97; PULSE 98; RESP 16; TEMP 36.7; O2SAT 97
== END 2023-01-17 11:52 | disposition home or self-care (01) ==
PROVIDERS: Emergency Provider Nurse Practitioner; PCP Internal Medicine Adolescent Medicine
DX: M54.42 Lumbago with sciatica, left side; F17.210 Nicotine dependence, cigarettes, uncomplicated; X50.0XXA Overexertion from strenuous movement or load, initial encounter
CPT/HCPCS: 96372; 99212; 99214; G0463

== ENCOUNTER 2023-03-21 14:37 | Emergency (ER) | payer OTHER, SELFPAY ==
[2023-03-21 14:45] VITALS: BP 140/89; PULSE 92; RESP 18; TEMP 36.7; O2SAT 97; BMI 24.0
--- NOTE | 2023-03-21 14:57 | EXP.UTC ---
Discharge Plan Disposition Patient Disposition: Xfer Short-Term Hosp Referrals Follow up/Referrals: Aaron Ojeda MD [Primary Care Provider] - See instructions Clinical Impressions Clinical Impression: Acute unilateral obstructive uropathy, Hydronephrosis of right kidney Instructions Patient Instructions: DI for Acute Abdominal Pain Discharge ED Provider: Amanda Dalton [facility] HPI General Chief complaint: Abdominal Pain Stated complaint: stomach/Rt side pain Mode of Arrival: Ambulatory Source of Information: Patient Limitations: No Limitations Time Seen by Provider: 03/21/23 14:58 Description of Symptoms (Recalled from Triage Doc. by RN): PATIENT C/O PAIN TO RIGHT SIDE THAT STARTED LAST NIGHT HEENT Symptoms (Recalled from RN notes): No Resp Symptoms (Recalled from RN notes): No Skin Symptoms (Recalled from RN notes): No MS Symptoms (Recalled from RN notes): No Functional Status (Recalled from RN notes): WNL History of Present Illness Provider Complaint: Patient state that he started last night with pain in his right side that comes around lower abdomen to just below naval area States that pain has been persistent and not got any better or any worse States that he doesnt have an appendix but was worried about a kidney stone or something States that he is just feeling very uncomfortable States that he had a normal bowel movement this morning Denies difficulty urinating Related Data Allergies Allergy/AdvReac Type Severity Reaction Status Date / Time contact metal agent AdvReac Verified 10/28/22 10:21 oats AdvReac Verified 10/28/22 10:21 Worker's Comp Is this a Worker's Comp case?: No [facility] Disclaimer: The information contained in this section may have been updated after the patient was seen, as this information can be updated by other users. Social History Smoking Status: Former smoker tobacco type: cigarettes packs per day: 1 second hand exposure: Yes alcohol intake: never current occupational status: employed Travel in the last 8 weeks: None household members: significant other housing: other current occupational exposures/hazards: No caffeine: Yes ROS Obtained: Yes All systems reviewed & no additional complaints except as documented and Yes Systems reviewed as appropriate & no additional complaints except as documented Constitutional Constitutional: Reports system reviewed and no additional complaints, except as documented, Reports as per HPI and Denies fever(s) ENT Ears, Nose, Mouth, and Throat: Reports system reviewed and no additional complaints, except as documented and Reports as per HPI Cardiovascular Cardiovascular: Reports system reviewed and no additional complaints, except as documented and Reports as per HPI Respiratory Respiratory: Reports system reviewed and no additional complaints, except as documented and Reports as per HPI Gastrointestinal Gastrointestingal: Reports system reviewed and no additional complaints, except as documented, as per HPI, abdominal pain (right flank pain going into lower abdomen since last night) and nausea; Denies belching, constipation, cramping, diarrhea or loose stools Genitourinary Male Genitourinary: Reports system reviewed and no additional complaints, except as documented, Reports as per HPI, Denies difficulty urinating, Reports flank pain, Denies urinary frequency, Denies urinary hesitancy and Denies urinary urgency Musculoskeletal Musculoskeletal: Reports system reviewed and no additional complaints, except as documented and Reports as per HPI Physical Exam General General appearance: alert and in no apparent distress ENT ENT exam: Present mucous membranes moist Respiratory Respiratory exam: Present normal lung sounds bilaterally; Absent respiratory distress or wheezes Cardiovascular Cardiovascular exam: Present regular rate, normal rhythm and normal heart sounds Abdominal Exam Abdomina
[2023-03-21 16:08] LABS: Microscopic, Urine URINE MICROSCOPIC (MICROSCOPIC)
[2023-03-21 16:13] LABS: Appearance,Urine CLEAR (Clear); Bilirubin,Urine Negative (Negative); Blood, Urine 1+ (Negative); Color,Urine YELLOW (Yellow); Glucose,Urine (UA) Negative (Negative); Ketones,Urine Negative (Negative); Leukocyte Esterase,Urine Negative (Negative); Nitrate,Urine Negative (Negative); Protein,Urine Negative (Negative); Specific Gravity, Urine 1.025 (1.005-1.030); Urobilinogen,Urine 0.2 EU/dl (0.2)
--- NOTE | 2023-03-21 16:58 | PC.NURSE ---
pt brought over by [facility] joan Del Rosario
[2023-03-21 16:59] VITALS: BP 162/110; PULSE 89; RESP 18; TEMP 36.6; O2SAT 97; BMI 23.9
--- NOTE | 2023-03-21 17:21 | CT_ITS ---
PROCEDURE INFORMATION: Exam: CT Abdomen And Pelvis Without Contrast Exam date and time: 03/21/2023 5:39 PM Age: 43 years old Clinical indication: Abdominal pain; Flank; Right lower quadrant (rlq); Patient HX: Hematuria; Additional info: Right flank pain TECHNIQUE: Imaging protocol: Computed tomography of the abdomen and pelvis without contrast. Radiation optimization: All CT scans at this facility use at least one of these dose optimization techniques: automated exposure control; mA and/or kV adjustment per patient size (includes targeted exams where dose is matched to clinical indication); or iterative reconstruction. REPORTING DATA: Count of CT and Cardiac NM exams in prior 12 months: This patient has received 0 known CTs and 0 known cardiac nuclear medicine studies in the 12 months prior to the current study. COMPARISON: CR XR HIP LT 2-3V W/PELVIS 07/20/2022 12:13 PM FINDINGS: Liver: Small left hepatic lobe calcification. Gallbladder and bile ducts: Normal. No calcified stones. No ductal dilation. Pancreas: Normal. No ductal dilation. Spleen: Punctate splenic calcification. Adrenal glands: Normal. No mass. Kidneys and ureters: Severe right pelvicaliectasis. Mild right perinephric fat stranding. Punctate bilateral nonobstructing nephrolithiasis. No identifiable obstructing stone. Stomach and bowel: Unremarkable. No obstruction. No mucosal thickening. Appendix: No evidence of appendicitis. Intraperitoneal space: Unremarkable. No free air. No significant fluid collection. Vasculature: Unremarkable. No abdominal aortic aneurysm. Lymph nodes: Unremarkable. No enlarged lymph nodes. Urinary bladder: Mild circumferential urinary bladder wall thickening. Reproductive: Prostatic calcifications. Bones/joints: No acute osseous findings. Degenerative changes. Soft tissues: Tiny fat containing umbilical hernia. IMPRESSION: 1. Severe right hydronephrosis without identifiable obstructing stone. Punctate bilateral nonobstructing nephrolithiasis. 2. Mild circumferential urinary bladder wall thickening, correlate for acute cystitis.
[2023-03-21 17:29] LABS: Basophils # 0.1 K/mm3 (0-0.2); Basophils % 0.4 % (0.1-2.0); Eosinophils # 0.1 K/mm3 (0.0-0.4); Eosinophils % 0.7 % (0.1-12.0); Hematocrit 57.7 % (42.0-52.0); Lymphocytes # 2.5 K/mm3 (0.7-4.5); Lymphocytes % 16.9 % (10-50); Mean Corpuscular HGB Conc 32.8 g/dL (31.8-35.4); Mean Corpuscular Volume 94.5 fl (80-94); Mean Platelet Volume 7.8 fl (7.4-10.4); Monocytes % 6.6 % (1.7-9.3); Neutrophils # 11.1 K/mm3 (1.8-7.8); Neutrophils % 75.4 % (37.0-80.0); Platelet Count 376 K/mm3 (142-424); Red Blood Count 6.11 M/mm3 (4.60-6.20); White Blood Count 14.7 K/mm3 (4.8-10.8)
[2023-03-21 17:30] VITALS: BP 149/107; PULSE 84; O2SAT 95
[2023-03-21 17:30] LABS: Chloride 104 mmol/L (98-107); Potassium 3.5 mmoL/L (3.5-5.1); Sodium 137 mmol/L (136-145)
[2023-03-21 17:33] LABS: Alanine Aminotransferase 35 U/L (12-78); Albumin Level 4.7 g/dl (3.5-5.0); Albumin/Globulin Ratio 1.5 (1.1-1.8); Alkaline Phosphatase 68 U/L (38-126); Anion Gap 10.5 mEq/L (5-15); Aspartate Amino Transferase 36 U/L (17-59); Bilirubin,Total 0.7 mg/dl (0.2-1.3); Blood Urea Nitrogen 8 mg/dl (9-20); Carbon Dioxide 26 mmol/L (22.0-30.0); Creatinine Clearance Estimated 113 mL/min (50-200); Estimated Glomerular Filt Rate 92 ml/min (>60); GFR (African American) 111 ML/MIN (>60); Globulin 3.2 g/dL (1.3-3.2); Total Protein,Serum 7.9 g/dl (6.3-8.2)
[2023-03-21 17:34] LABS: Calcium 8.9 mg/dl (8.4-10.2); Glucose 90 mg/dl (74-100)
[2023-03-21 17:39] LABS: Hemoglobin 18.9 g/dL (14.1-18.0)
[2023-03-21 18:00] VITALS: BP 156/114; PULSE 90; O2SAT 97
--- NOTE | 2023-03-21 18:10 | HMH.EDGENADL ---
Discharge Plan Disposition Patient Disposition: Xfer Short-Term Hosp Chief Complaint: Abdominal Pain Referrals Follow up/Referrals: Aaron Ojeda MD [Primary Care Provider] - See instructions Clinical Impressions Clinical Impression: Acute unilateral obstructive uropathy, Hydronephrosis of right kidney Instructions Patient Instructions: DI for Acute Abdominal Pain Discharge ED Provider: Amanda Dalton General Adult HPI General Chief complaint: Abdominal Pain Stated complaint: stomach/Rt side pain Time Seen by Provider: 03/21/23 14:58 Mode of Arrival: Ambulatory Source of Information: Patient Limitations: No Limitations Description of Symptoms (Recalled from ER Triage Doc. by RN): pt cc today is right flank pain and suprapubic pain since last night and his urine is darker than his normal. pt has no known hx of kidney stones History of Present Illness HPI narrative: 43-year-old male no relevant medical history presenting with pain. Started 1 day prior to arrival on 03/20. He was not doing anything in particular, not exerting himself. Right flank, radiates around to his right lower quadrant. Associated with 1 episode of nonbloody, nonbilious vomiting. Denies fevers or chills, overt blood in his urine, history of kidney stones, or any other concerns. Has not taken any medications to try to make it better. Does not notice anything that makes it worse other than applying pressure to his right flank. Related Data Allergies Allergy/AdvReac Type Severity Reaction Status Date / Time contact metal agent AdvReac Verified 10/28/22 10:21 oats AdvReac Verified 10/28/22 10:21 PFS PFS Disclaimer: The information contained in this section may have been updated after the patient was seen, as this information can be updated by other users. Social History Smoking Status: Former smoker tobacco type: cigarettes packs per day: 1 second hand exposure: Yes alcohol intake: never current occupational status: employed Travel in the last 8 weeks: None household members: significant other housing: other current occupational exposures/hazards: No caffeine: Yes ROS Obtained: Yes All systems reviewed & no additional complaints except as documented Physical Exam General General appearance: alert and in no apparent distress Head Head exam: atraumatic and normocephalic Eye Eye exam: Present normal appearance, PERRL and EOMI ENT ENT exam: Present mucous membranes moist Neck Neck exam: Present normal inspection, full ROM and trachea midline Respiratory Respiratory exam: Absent respiratory distress, wheezes, stridor, accessory muscle use or prolonged expiratory phase Cardiovascular Cardiovascular exam: Present normal rhythm Abdominal Exam Abdominal exam: Present soft and tenderness; Absent distention, guarding, rebound, rigidity or normal bowel sounds Abdominal tenderness: Present RLQ Extremities Exam Extremities exam: Absent edema Back Exam Back exam: Present CVA tenderness (R); Absent CVA tenderness (L) Neurological Exam Neurological exam: Present alert, oriented X3, CN II-XII intact and normal gait; Absent motor sensory deficit Skin Skin exam: Present warm and dry; Absent diaphoresis or erythema Medical Decision Making Medical Records Medical records reviewed: Yes I reviewed the patient's medical records. Aqu[place] Inquiry Pt receiving controlled substance: No Aquiles was queried for this patient: No Vital Signs: 03/21/23 14:45 03/21/23 16:59 03/21/23 17:30 Temperature 98.0 F 97.9 F Temperature Source Oral Oral Pulse Rate 84 Pulse Rate [Left Brachial] 92 H 89 Respiratory Rate 18 18 Blood Pressure 149/107 H Blood Pressure [Left Arm] 140/89 162/110 H Blood Pressure Mean [Left Arm] 106 127 Blood Pressure Source [Left Arm] Automatic Cuff Blood Pressure Position [Left Arm] Sitting 02 Sat by Pulse Oximetry 97 97 95 Oxygen Delivery Me
[2023-03-21 18:13] LABS: RBC,Urine Occasional #/hpf (0-3); WBC,Urine Occasional #/hpf (0-3)
[2023-03-21 18:30] VITALS: BP 145/101; PULSE 81; O2SAT 96
--- NOTE | 2023-03-21 19:25 | PC.NURSE ---
Attending speaking to Dr. Luciano with [facility]
--- NOTE | 2023-03-21 19:34 | PC.NURSE ---
Called back [facility], Bed placement for pt is Bed # 102. Accepting Physician is Dr. Sandip Luciano. RN and MD advised. CR
--- NOTE | 2023-03-21 20:04 | PC.NURSE ---
Report to HENRY Marcelo at [facility] [phone]
[2023-03-21 20:19] VITALS: BP 154/101; PULSE 84; RESP 19; TEMP 36.9; O2SAT 97
== END 2023-03-21 20:18 | disposition short-term general hospital (02) ==
LOC: UTC 14:38 → ER 16:57
PROVIDERS: Emergency Medicine; Emergency Provider Nurse Practitioner; PCP Internal Medicine Adolescent Medicine
DX: R10.31 Right lower quadrant pain (principal); N13.30 Unspecified hydronephrosis; N13.9 Obstructive and reflux uropathy, unspecified; D72.829 Elevated white blood cell count, unspecified; Z87.891 Personal history of nicotine dependence
CPT/HCPCS: 74176; 80053; 81001; 85025; 96374; 96375; 99285; J0131

== ENCOUNTER 2023-05-23 08:15 | Emergency (ER) | payer OTHER, SELFPAY ==
--- OUTSIDE RECORDS SUMMARY | 2023-05-23 08:18 | XMS_ITS | Continuity of Care Document ---
Author Name Unknown Address [address] [place], [place] [id number] [facility] Phone Care Team Providers Care Reconnaissance Crewmember Name Role Phone MARCCHRISTOPHER Andres Leticia Unavailable LINDA LYNNE Primary Care BRANDO LOMBARDI Admitting BRANDO LOMBARDI Primary Attending BRANDO LOMBARDI Unavailable ALLERGIES AND ADVERSE REACTIONS ALLERGIES AND ADVERSE REACTIONS Code System Allergy Substance Adverse Reaction Date Reaction (Severity) Comment Status Reported By Updated By dylan (Free Text Allergy) Rash active [id number] on March 22, 2023 2:13:08 AM UTC ASSESSMENTS Obstructive hydronephrosis ; Benign essential hypertension ; Microscopic hematuria ; Former heavy tobacco smoker ; FAMILY HISTORY RELATION: Father Status: LIVING SNOMED-CT Diagnosis Age At Onset Information not available RELATION: Mother Status: Cause of : Unknown Age at : Unknown SNOMED-CT Diagnosis Age At Onset Information not available PROBLEMS PATIENT PROBLEMS Code Description/Comments Status Updated By [id number] Obstructive hydronephrosis active D [id number] on March 22, 2023 1:59:30 AM UTC [id number] Benign essential hypertension active [id number] on March 22, 2023 2:00:41 AM UTC [id number] Microscopic hematuria active [id number] on March 22, 2023 2:00:53 AM [place] [id number]
--- OUTSIDE RECORDS SUMMARY | 2023-05-23 08:19 | XMS_ITS | Continuity of Care Document ---
Author Name Unknown Address [address] [place], [place] [id number] [facility] Phone Care Team Providers Care Merchandise Planner Name Role Phone HIWOT WALSH Primary Attending CHRISTOPHER TRAN Unavailable HIWOT WALSH Admitting CHRISTOPHER TRAN Surgeon HIWOT WALSH Unavailable LINDA LYNNE Primary Care ALLERGIES AND ADVERSE REACTIONS ALLERGIES AND ADVERSE REACTIONS Code System Allergy Substance Adverse Reaction Date Reaction (Severity) Comment Status Reported By Updated By dylan (Free Text Allergy) Rash active [id number] on May 01, 2023 12:39:45 AM UTC ASSESSMENTS Hydronephrosis ; Pyelonephritis ; Acquired hydronephrosis due to ureteropelvic junction obstruction; FAMILY HISTORY RELATION: Father Status: LIVING SNOMED-CT Diagnosis Age At Onset Information not available RELATION: Mother Status: Cause of : Unknown Age at : Unknown SNOMED-CT Diagnosis Age At Onset Information not available FUNCTIONAL STATUS Note Title Nurse Discharge Note Date Of Service May 01, 2023 9: 51:34 PM UTC Created By [id number] on May 01, 2023 9:51:34 PM UTC Signed By [id number] on May 01, 2023 9:52:21 PM UTC FUNCTIONAL STATUS
--- OUTSIDE RECORDS SUMMARY | 2023-05-23 08:19 | XMS_ITS | Continuity of Care Document ---
Author Name Unknown Address [address] [place], [place] [id number] [facility] Phone Care Team Providers Care Yarn Inspector Name Role Phone CHRISTOPHER TRAN Unavailable LINDA LYNNE Primary Care BRANDO LOMBARDI Admitting BRANDO LOMBARDI Primary Attending BRANDO LOMBARDI Unavailable CHRISTOPHER TRAN Surgeon ALLERGIES AND ADVERSE REACTIONS ALLERGIES AND ADVERSE REACTIONS Code System Allergy Substance Adverse Reaction Date Reaction (Severity) Comment Status Reported By Updated By dylan (Free Text Allergy) Rash active [id number] on March 22, 2023 2:13:08 AM [place] ASSESSMENTS Obstructive hydronephrosis ; Benign essential hypertension ; Microscopic hematuria ; Former heavy tobacco smoker ; FAMILY HISTORY RELATION: Father Status: LIVING SNOMED-CT Diagnosis Age At Onset Information not available RELATION: Mother Status: Cause of : Unknown Age at : Unknown SNOMED-CT Diagnosis Age At Onset Information not available PROBLEMS PATIENT PROBLEMS Code Description/Comments Status Updated By [id number] Obstructive hydronephrosis active D [id number] on March 22, 2023 1:59:30 AM [place] [id number] Benign essential hypertension active [id number] on March 22, 2023 2:00:41 AM [facility] [id number] Microscopic hematuria active [id number]
--- OUTSIDE RECORDS SUMMARY | 2023-05-23 08:19 | XMS_ITS | Continuity of Care Document ---
Author Name Unknown Address [address] [place], [place] [id number] [facility] Phone Care Team Providers Care Spring Fitter Name Role Phone HIWOT WALSH Primary Attending CHRISTOPHER TRAN Unavailable HIWOT WALSH Admitting HIWOT WALSH Unavailable LINDA LYNNE Primary Care ALLERGIES AND ADVERSE REACTIONS ALLERGIES AND ADVERSE REACTIONS Code System Allergy Substance Adverse Reaction Date Reaction (Severity) Comment Status Reported By Updated By dylan (Free Text Allergy) Rash active [id number] on May 01, 2023 12:39:45 AM UTC [...] 2023 9: 51:34 PM UTC Created By [id number] on May 01, 2023 9:51:34 PM UTC Signed By [id number] on May 01, 2023 9:52:21 PM UTC FUNCTIONAL STATUS Section: Functional Status Comments:
--- OUTSIDE RECORDS SUMMARY | 2023-05-23 08:19 | XMS_ITS | Continuity of Care Document ---
Author Name Unknown Address [address] [place], [place] [id number] [facility] Phone Care Team Providers Care Open End Spinning Operator Name Role Phone CHRISTOPHER TRAN Primary Attending CHRISTOPHER TRAN Unavailable LINDA LYNNE Primary Care CHRISTOPHER TRAN Admitting ALLERGIES AND ADVERSE REACTIONS ALLERGIES AND ADVERSE REACTIONS Code System Allergy Substance Adverse Reaction Date Reaction (Severity) Comment Status Reported By Updated By metals (Free Text Allergy) Rash active [id number] on March 22, 2023 2:13:08 AM [facility] FAMILY HISTORY RELATION: Father Status: LIVING SNOMED-CT Diagnosis Age At Onset Information not available RELATION: Mother Status: Cause of : Unknown Age at : Unknown SNOMED-CT Diagnosis Age At Onset Information not available RESULTS Patient: STANTON VEGA Date of : [birth year] LABORATORY RESULTS Information is not available LABORATORY NARRATIVE RESULTS Information is not available RADIOLOGY RESULTS ORDER 100: ABD KUB 1V (LOINC : [id number]) ORDER DATE: April 04, 2023 4:02:00 PM [facility]
--- OUTSIDE RECORDS SUMMARY | 2023-05-23 08:19 | XMS_ITS | Continuity of Care Document ---
Author Name Unknown Address [address] [place], [place] [id number] [facility] Phone Care Team Providers Care Legal Recovery Specialist Name Role Phone MARCCHRISTOPHER Andres Leticia Unavailable LINDA LYNNE Primary Care BRANDO LOMBARDI Admitting BRANDO LOMBARDI Primary Attending [phone] BRANDO LOMBARDI Unavailable ALLERGIES AND ADVERSE REACTIONS ALLERGIES AND ADVERSE REACTIONS Code System Allergy Substance Adverse Reaction Date Reaction (Severity) Comment Status Reported By Updated By dylan (Free Text Allergy) Rash active [id number] on March 22, 2023 2:13:08 AM UTC [...] PATIENT PROBLEMS Code Description/Comments Status Updated By [id number] Obstructive hydronephrosis active D [id number] on March 22, 2023 1:59:30 AM UTC [id number] Benign essential hypertension active [id number] on March 22, 2023 2:00:41 AM UTC [id number] Microscopic hematuria active [id number] on March 22, 2023 2:00:53 AM [place] [id number]
--- OUTSIDE RECORDS SUMMARY | 2023-05-23 08:19 | XMS_ITS | Continuity of Care Document ---
Author Name Unknown Address [address] [place], [place] [id number] [facility] Phone Care Team Providers Care Cafeteria Associate Name Role Phone HIWOT WALSH Primary Attending CHRISTOPHER TRAN Unavailable HIWOT WALSH Admitting HIWOT WALSH Unavailable LINDA LYNNE Primary Care ALLERGIES AND ADVERSE REACTIONS ALLERGIES AND ADVERSE REACTIONS Code System Allergy Substance Adverse Reaction Date Reaction (Severity) Comment Status Reported By Updated By dylan (Free Text Allergy) Rash active [id number] on May 01, 2023 12:39:45 AM UTC [...] 2023 9: 51:34 PM UTC Created By [id number] on May 01, 2023 9:51:34 PM UTC Signed By [id number] on May 01, 2023 9:52:21 PM UTC FUNCTIONAL STATUS Section: Functional Status Comments:
[2023-05-23 08:30] VITALS: BP 138/90; PULSE 92; RESP 18; TEMP 36.8; O2SAT 96; BMI 22.6
--- NOTE | 2023-05-23 08:36 | EXP.UTC ---
Discharge Plan Disposition Patient Disposition: Home, Self-Care Condition: Good Prescriptions Prescriptions: New benzonatate [benzonatate] 100 mg capsule 100 mg PO TIDP PRN (Reason: Cough) Qty: 30 0RF amoxicillin-pot clavulanate 875-125 mg Tablet 1 tab PO Q12H Qty: 20 0RF methylprednisolone 4 mg Tablets,Dose Pack 4 mg PO DIRECTED Qty: 21 0RF guaifenesin [Mucinex] 600 mg tablet extended release 12hr 600 - 1,200 mg PO BIDP PRN (Reason: Congestion) Qty: 30 0RF Referrals Follow up/Referrals: Aaron Ojeda MD [Primary Care Provider] - See instructions Activity Restrictions/Add. Instructions Additional Instructions/Restrictions: Drink plenty of fluids. Take tylenol or ibuprofen for pain or fever. Take the medications as directed. Follow up with your regular doctor. GO TO THE ER FOR ANY WORSENING SYMPTOMS Clinical Impressions Clinical Impression: Sinusitis, acute, COPD exacerbation Stand Alone Forms Stand Alone Forms: Work/School Release Instructions Patient Instructions: Sinusitis, DI for Sinusitis Discharge ED Provider: Wilton Kelly [facility] General Stated complaint: stuffy,headahce,sinus pressure Time Seen by Provider: 05/23/23 08:36 Description of Symptoms (Recalled from Triage Doc. by RN): He states that for the past 2 days he has had worsening sinus congestion, sore throat, cough, and malaise. Related Data Previous Rx's Medication Instructions Recorded amoxicillin 875 mg-potassium 1 tab PO Q12H #20 tabs 05/23/23 clavulanate 125 mg tablet benzonatate 100 mg capsule 100 mg PO TIDP PRN Cough #30 caps 05/23/23 guaifenesin 600 mg tablet, 600 - 1,200 mg PO BIDP PRN 05/23/23 extended release 12 hr (Mucinex) Congestion #30 tabs methylprednisolone 4 mg tablets in 4 mg PO DIRECTED #21 tabs 05/23/23 a dose pack Allergies Allergy/AdvReac Type Severity Reaction Status Date / Time contact metal agent AdvReac Verified 05/23/23 08:58 oats AdvReac Verified 05/23/23 08:58 [facility] Disclaimer: The information contained in this section may have been updated after the patient was seen, as this information can be updated by other users. Social History Smoking Status: Former smoker tobacco type: cigarettes packs per day: 1 second hand exposure: Yes alcohol intake: never current occupational status: employed Travel in the last 8 weeks: None household members: significant other housing: other current occupational exposures/hazards: No caffeine: Yes ROS Obtained: Yes All systems reviewed & no additional complaints except as documented Constitutional Constitutional: Reports chills and Reports fever(s) Eyes Eyes: Denies eye discharge ENT Ears, Nose, Mouth, and Throat: Reports as per HPI Cardiovascular Cardiovascular: Denies chest pain Respiratory Respiratory: Denies chest congestion and Reports cough Gastrointestinal Gastrointestingal: Reports nausea; Denies abdominal pain, constipation, cramping, diarrhea or vomiting Musculoskeletal Musculoskeletal: Denies arthralgias Integumentary/Breasts Skin/Breast: Denies rash Neurologic Neurologic: Denies paresthesias Physical Exam General General appearance: alert and in no apparent distress Eye Eye exam: Present normal appearance, PERRL and EOMI ENT ENT exam: Present mucous membranes moist and normal external ear exam Expanded ENT Exam External ear exam: Present normal external inspection TM/Canal exam: Bilateral TM: erythema and bulging Nose exam: Absent sinus tenderness Nasal speculum exam: Bilateral: normal Mouth exam: Present normal external inspection; Absent drooling Teeth exam: Present normal inspection Throat exam: Present tonsillar erythema and tonsillomegaly Neck Neck exam: Present normal inspection, full ROM and trachea midline; Absent tenderness, lymphadenopathy or thyromegaly Chest Chest inspection: Present normal inspection a
[2023-05-23 08:58] LABS: UTC Influenza A Antigen Negative (Negative); UTC Influenza B Antigen Negative (Negative); UTC Strep Screen (Rapid) Negative (Negative)
[2023-05-23 09:23] VITALS: BP 138/90; PULSE 92; RESP 18; TEMP 36.8; O2SAT 96
== END 2023-05-23 09:23 | disposition home or self-care (01) ==
PROVIDERS: Emergency Provider Nurse Practitioner Family; PCP Internal Medicine Adolescent Medicine
DX: J44.1 Chronic obstructive pulmonary disease with (acute) exacerbation (principal); J01.90 Acute sinusitis, unspecified; R51.9 Headache, unspecified; R09.81 Nasal congestion; R05.9 Cough, unspecified; R07.0 Pain in throat; R53.81 Other malaise; Z87.891 Personal history of nicotine dependence
CPT/HCPCS: 87804; 87880; 99212; 99214; G0463

== ENCOUNTER 2023-07-13 12:55 | Outpatient (CLI) | payer OTHER, SELFPAY ==
--- NOTE | 2023-07-13 | CA_ITS ---
APPROVED REPORT EXAM: Comprehensive 2D, Doppler, and color-flow Echocardiogram Director Skills: FLORENTINO Ward, RVS Ht: 5 ft 10 in Wt: 166lbs BSA: 1.93 BP: 140/86 mmHg Indications: COPD, Smoker, Post -op Afib, 2D Dimensions Left Atrium 3.16 cm LA Volume 48.40 mL LA Volume Index 24.40 mL/m2 (M/F) 16-34 M-Mode Dimensions RVDd 0.94 cm (0.9-2.6) LA Diam 3.16 cm (1.9-4.0) LVDd 5.05 cm (3.5-5.7) LVDs 3.41 cm (3.5-5.7) IVSd 0.90 cm (0.6-1.1) PWd 1.10 cm (0.6-1.1) EF (Teich) 60.50% EPSs 0.50 cm FS 32.50% EDV (Teich) 121.00 mL TAPSE 2.18 (<1.7) ESV (Teich) 47.80 mL LV Diastology E Decel Time 197 (160-240 msec) E/A Ratio 1.04 MED A' 13.70 cm/s LAT A' 11.20 cm/s Aortic Valve SAIRA Index 1.40 cm2/m2 AoV Peak Ceasar. 133.0 (50-130 cm/s) AO Peak GR. 7.10 mmHg AO Mean GR. 3.50 (<5 mmHg) AO VTI 24.6 (18-25 cm) SAIRA (VTI) 2.78 (2.5-4.5 cm2) Mitral Valve MV A Velocity 67.0 (40-130 cm/s) E/A Ratio 1.04 Tricuspid Valve TR P. Velocity 136.00 cm/s RAP Estimate 10.00 mmHg RVSP 17.40 mmHg Left Ventricle The left ventricle is normal size. The left ventricular systolic function is normal. The left ventricular ejection fraction is within the normal range. Proximal septal thickening is noted. There is normal LV segmental wall motion. The left ventricular diastolic function is normal. LVEF is 55%. Right Ventricle The right ventricle is normal size. The right ventricular systolic function is normal. Atria The left atrium size is normal. The right atrium size is normal. There is no Doppler evidence of interatrial shunt. Aortic Valve The aortic valve opens well. There is no aortic valvular stenosis. No aortic regurgitation is present. Mitral Valve The mitral valve is normal in structure. No evidence of mitral valve stenosis. There is no mitral valve regurgitation noted. Tricuspid Valve The tricuspid valve leaflets are thin and pliable. Trace tricuspid regurgitation. There is insufficient TR jet to estimate RVSP. Pulmonic Valve The pulmonary valve is normal in structure. Trace pulmonic regurgitation. Great Vessels The aortic root is normal in size. The ascending aorta is not well visualized. IVC is normal in size and collapses >50% with inspiration. Pericardium There is no pericardial effusion. Other Information Study Quality: Adequate Conclusion Normal biventricular systolic function. No significant valvular stenosis or regurgitation. Electronically signed by : Pina Hackett MD 07/16/2023 19:21:06
--- OUTSIDE RECORDS SUMMARY | 2023-07-13 12:57 | XMS_ITS | Continuity of Care Document ---
Author Name Unknown Address [address], [place] [id number] [facility] Phone Care Team Providers Care Furnace Combination Analyst Name Role Phone HIWOT WALSH Primary Attending CHRISTOPHER TRAN Unavailable HIWOT WALSH Admitting CHRISTOPHER TRAN Surgeon HIWOT WALSH Unavailable LINDA LYNNE Primary Care ALLERGIES AND ADVERSE REACTIONS ALLERGIES AND ADVERSE REACTIONS Code System Allergy Substance Adverse Reaction Date Reaction (Severity) Comment Status Reported By Updated By dylan (Free Text Allergy) Rash active [id number] on May 01, 2023 12:39:45 AM UTC [...] 2023 9: 51:34 PM UTC Created By [id number] on May 01, 2023 9:51:34 PM UTC Signed By [id number] on May 01, 2023 9:52:21 PM UTC FUNCTIONAL STATUS Section: Functional Status Comments: MENTAL STATUS Note Title Nurse Discharge Note Date Of Service May 01, 2023 9: 51:34 PM UTC Created By [id number] on May 01, 2023 9:51:34 PM UTC Signed By [id number] on May 01, 2023 9:52:21 PM UTC MENTAL STATUS Section: Cognitive Status Comments: PROBLEMS PATIENT PROBLEMS Code Description/Comments Status Updated By [id number] Hydronephrosis active [id number] on No 2022 12:37:59 AM UTC [id number] Pyelonephritis active [id number] on No 2022 12:46:42 AM UTC [id number] Acquired hydronephro sis due to ureteropelvic junction obstruction active [id number] on May 01, 2023 4:22:18 PM UTC RESULTS Patient: STANTON VEGA Date of : [birth year] 1 LABORATORY RESULTS ORDER 100: CBC W/ AUTO DIFF (LOINC: 25159-5) ORDER DATE: April 30, 2023 6:15:00 PM UTC Specimen Source: Whole Blood PERFORMING LAB: [address] [id number] Result Comment: Final Result Date: April 30, 2023 7:14:00 PM UTC (TECH: LM) LOINC TEST FLAG RESULT REFERENCE RANGE UPDA ANTIONE BY 6690-2 Leukocytes [#/volume] in Blood by Automated count H 23.96 K/uL 4.5 K/uL - 11.5 K/uL April 30, 2023 7:14:00 PM UTC (TECH: LM) 789-8 Erythrocytes [#/volume] in Blood by Automated count H 5.59 M/uL 4.0 M/uL - 5.4 M/uL April 30, 2023 7:14:00 PM UTC (TECH: LM) 718-7 Hemoglobin [Mass/volume] in Blood N 17.6 g/dL 14.0 g/dL - 18.0 g/dL April 30, 2023 7:14:00 PM UTC (TECH: LM) 4544-3 Hematocrit [Volume Fraction] of Blood by Automated count N 48.1 % 40 % - 54 % April 30, 2023 7:14:00 PM UTC (TECH: LM) 787-2 Erythrocyte mean corpuscular volume [Entitic volume] by Automated count N 86.0 fL 80.0 fL - 100.0 fL April 30, 2023 7:14:00 PM UTC (TECH: LM) 785-6 Erythrocyte mean corpuscular hemoglobin [Entitic mass] by Automated count N 31.5 pg 26.0 pg - 32.0 pg April 30, 2023 7:14:00 PM UTC (TECH: LM) 786-4 Erythrocyte mean corpuscular hemoglobin concentration [Mass/volume] by Automated count H 36.6 g/dL 32.0 g/dL - 36.0 g/dL April 30, 2023 7:14:00 PM UTC (TECH: LM) 788-0 Erythrocyte distribution width [Ratio] by Automated count N 13.3 % 11.5 % - 14.5 % April 30, 2023 7:14:00 PM UTC (TECH: LM) 777-3 Platelets [#/volume] in Blood by Automated count N 391 K/uL 142 K/uL - 424 K/uL April 30, 2023 7:14:00 PM UTC (TECH: LM) 37379-8 Platelet mean volume [Entitic volume] in Blood by Automated count N 9.2 fL 6.8 fL - 10.2 fL April 30, 2023 7:14:00 PM UTC (TECH: LM) 65496-4 Neutrophils/100 leukocytes in Blood H 82.4 % 50 % - 70 % April 30, 2023 7:14:00 PM UTC (TECH: LM) 36256-7 Lymphocytes/100 leukocytes in Blood L 9.5 % 18.0 % - 42.0 % April 30, 2023 7:14:00 PM UTC (TECH: LM) 83928-9 Monocytes/100 leukocytes in Blood N 7.3 % 2.0 % - 11.0 % April 30, 2023 7:14:00 PM UTC (TECH: LM) 82224-6 Eosinophils/100 leukocytes in Blood L 0.0 % 1.0 % - 3.0 % April 30, 2023 7:14:00 PM UTC (TECH: LM) 91624-8 Basophils/100 leukocytes in Blood N 0.3 % 0.0 % - 2.0 % April 30, 2023 7:14:00 PM UTC (TECH: LM) 79474-1 Immature granulocytes/100 leukocytes in Blood by Automated count N 0.5 % 0.0 % - 0.8 % April 30, 2023 7:14:00 PM UTC (TECH: LM) 08892-8 Nucleated cells [#/volume] in Blood N 0.0 % April 30, 2023 7:14:00 PM UTC (TECH: LM) 24818-4 Neutrophils [#/volume] in Blood N 19.72 K/uL April 30, 2023 7:14:00 PM UTC (TECH: LM) 56158-1 Lymphocytes [#/volume] in Blood N 2.28 K/uL April 30, 2023 7:14:00 PM UTC (TECH: LM) 41013-8 Monocytes [#/volume] in Blood N 1.76 K/uL April 30, 2023 7:14:00 PM UTC (TECH: LM) 64471-8 Eosinophils [#/volume] in Blood N 0.01 K/uL April 30, 2023 7:14:00 PM UTC (TECH: LM) 704-7 Basophils [#/volume] in Blood by Automated count N 0.06 K/uL April 30, 2023 7:14:00 PM UTC (TECH: LM) 42761-5 Immature granulocytes [#/volume] in Blood N 0.13 K/uL April 30, 2023 7:14:00 PM UTC (TECH: LM) 19294-5 Nucleated cells [#/volume] in Blood N 0.00 k/uL April 30, 2023 7:14:00 PM UTC (TECH: LM) 63892-7 Manual differential comment [interpretation] in Blood Narrative N YES April 30, 2023 7:14:00 PM UTC (TECH: LM) 55402-0 Neutrophils/100 leukocytes in Blood H 86 % 50 % - 70 % April 30, 2023 7:14:00 PM UTC (TECH: LM) 24088-3 Lymphocytes/100 leukocytes in Blood L 7 % 18.0 % - 42.0 % April 30, 2023 7:14:00 PM UTC (TECH: LM) 01301-5 Monocytes/100 leukocytes in Blood N 7 % 2 % - 11 % April 30, 2023 7:14:00 PM UTC (TECH: LM) ORDER 200: COMP METABOLIC PA CARMEN (LOINC: 50428-7) ORDER DATE: April 30, 2023 6:15:00 PM UTC Specimen Source: Serum PERFORMING LAB: [address] [id number] Result Comment: Final Result Date: April 30, 2023 7:07:00 PM UTC (TECH: GS) LOINC TEST FLAG RESULT REFERENCE RANGE UPDA ANTIONE BY 2951-2 Sodium [Moles/volume ] in Serum or Plasma N 141 mmol/L 137 mmol/L - 147 mmol/L April 30, 2023 7:07:00 PM [facility] (TECH: GS) 2823-3 Potassium [Moles/volume] in Serum or Plasma L 3.4 mmol/L 3.5 mmol/L - 5.1 mmol/L April 30, 2023 7:07:00 PM [facility] (TECH: GS) 2075-0 Chloride [Moles/volume] in Serum or Plasma N 108 mmol/L 98 mmol/L - 110 mmol/L April 30, 2023 7:07:00 PM [facility] (TECH: [employer]) 2027-9 Carbon dioxide, tota l [Moles/volume] in Serum or Plasma L 18 mmol/L 21 mmol/L - 30 mmol/L April 30, 2023 7:07:00 PM [facility] ([employer]: [employer]) 13558-0 Anion gap in Serum o r Plasma H 15 mmol/L 6 mmol/L - 14 mmol/L April 30, 2023 7:07:00 PM [facility] (TECH: [employer]) 2345-7 Glucose [Mass/volume ] in Serum or Plasma H 116 mg/dL 70 mg/dL - 115 mg/dL April 30, 2023 7:07:00 PM [facility] (TECH: [employer]) 3094-0 Urea nitrogen [Mass/volume] in Serum or Plasma N 9 mg/dL 9 mg/dL - 20 mg/dL April 30, 2023 7:07:00 PM [facility] (TECH: [employer]) 2160-0 Creatinine [Mass/volume] in Serum or Plasma N 1.2 mg/dL 0.5 mg/dL - 1.5 mg/dL April 30, 2023 7:07:00 PM [facility] (TECH: [employer]) 3097-3 Urea nitrogen/Creatinine [Mass Ratio] in Serum or Plasma L 8 RATIO 10 RATIO - 20 RATIO April 30, 2023 7:07:00 PM [facility] (TECH: [employer]) 37657-3 Glomerular filtratio n rate/1.73 sq M.predicted N 70 mL/min >60 April 30, 2023 7:07:00 PM [facility] (TECH: [employer]) 98794-8 Osmolality of Serum or Plasma by calculation N 293 mOsmol/Kg 275 mOsmol/Kg - 301 mOsmol/Kg April 30, 2023 7:07:00 PM UTC (TECH: GS) 2885-2 Protein [Mass/volume ] in Serum or Plasma N 8.1 g/dL 6.2 g/dL - 8.2 g/dL April 30, 2023 7:07:00 PM UTC (TECH: GS) 1751-7 Albumin [Mass/volume ] in Serum or Plasma H 5.1 g/dL 3.5 g/dL - 5.0 g/dL April 30, 2023 7:07:00 PM UTC (TECH: GS) 80527-8 Calcium [Mass/volume ] in Serum or Plasma N 9.8 mg/dL 8.5 mg/dL - 10.8 mg/dL April 30, 2023 7:07:00 PM UTC (TECH: GS) 1975-2 Bilirubin.total [Mass/volume] in Serum or Plasma N 0.8 mg/dL 0.2 mg/dL - 1.3 mg/dL April 30, 2023 7:07:00 PM UTC (TECH: GS) 1920-8 Aspartate aminotransferase [Enzymatic activity/volume] in Serum or Plasma N 26 IU/L 17 IU/L - 59 IU/L April 30, 2023 7:07:00 PM UTC (TECH: GS) 1742-6 Alanine aminotransferase [Enzymatic activity/volume] in Serum or Plasma N 28 IU/L 0 IU/L - 50 IU/L April 30, 2023 7:07:00 PM UTC (TECH: GS) 52579-1 Alkaline phosphatase.bile [Enzymatic activity/volume] in Serum or Plasma N 71 IU/L 38 IU/L - 126 IU/L April 30, 2023 7:07:00 PM UTC (TECH: GS) ORDER 300: UA WITH CULTURE I F INDICATED (LOINC: 28383-8) ORDER DATE: April 30, 2023 6:15:00 PM UTC Specimen Source: Urine PERFORMING LAB: [address] [id number] Result Comment: Final Result Date: April 30, 2023 11:35:00 PM UTC (TECH: KF2) LOINC TEST FLAG RESULT REFERENCE RANGE UPDA ANTIONE BY 5778-6 Color of Urine N YELLOW YELLOW Novem 2022 11:35:00 PM UTC (TECH: [employer]) 5767-9 Appearance of Urine N CLEAR CLEAR April 30, 2023 11:35:00 PM UTC (TECH: [employer]) 5792-7 Glucose [Mass/volume] in Urine by Test strip N NEGATIVE NEGATIVE April 30, 2023 11:35:00 PM UTC (TECH: [employer]) 49186-9 Bilirubin.total [Mass/volume] in Urine by Automated test strip N NEGATIVE NEGATIVE April 30, 2023 11:35:00 PM UTC (TECH: [employer]) 5797-6 Ketones [Mass/volume] in Urine by Test strip N NEGATIVE NEGATIVE April 30, 2023 11:35:00 PM UTC (TECH: [employer]) 2965-2 Specific gravity of Urine N 1.010 1.005 - 1.025 April 30, 2023 11:35:00 PM UTC (TECH: [employer]) 67121-5 Erythrocytes [#/volume] in Urine by Automated test strip N TRACE-INTACT NEGATIVE April 30, 2023 11:35:00 PM UTC (TECH: [employer]) 64089-9 pH of Urine by Automated test strip N 8.0 5.0 - 8.0 April 30, 2023 11:35:00 PM UTC (TECH: [employer]) 51496-6 Protein [Presence] in Urine by Test strip N NEGATIVE NEGATIVE April 30, 2023 11:35:00 PM UTC (TECH: [employer]) 82893-7 Urobilinogen [Mass/volume] in Urine by Automated test strip N 0.2 E.U./dL 0.0 - 0.2 April 30, 2023 11:35:00 PM UTC (TECH: [employer]) 79310-0 Nitrate [Presence] in Urine N NEGATIVE NEGATIVE April 30, 2023 11:35:00 PM UTC (TECH: KF2) 46329-6 Leukocytes [#/volume] in Urine by Test strip N NEGATIVE NEGATIVE April 30, 2023 11:35:00 PM UTC (TECH: [employer]) 62368-7 Other elements in Urine sediment N NOT INDICATED April 30, 2023 11:35:00 PM UTC (TECH: KF2) 09061-7 Microscopic exam [interpretation] of Urine by Cytology N YES April 30, 2023 11:35:00 PM UTC (TECH: KF2) 69078-6 Erythrocytes [#/area] in Urine sediment by Microscopy high power field N RARE NONE SEEN/HPF April 30, 2023 11:35:00 PM UTC (TECH: KF2) 5821-4 Leukocytes [#/area] in Urine sediment by Microscopy high power field N NONE SEEN NONE SEEN/HPF April 30, 2023 11:35:00 PM UTC (TECH: KF2) 09844-5 Epithelial cells.squamous [#/area] in Urine sediment by Microscopy high power field N 0-2 NONE SEEN April 30, 2023 11:35:00 PM UTC (TECH: KF2) 5769-5 Bacteria [#/area] in Urine sediment by Microscopy high power field N NEGATIVE NEGATIVE April 30, 2023 11:35:00 PM UTC (TECH: KF2) ORDER 500: PROCALCITONIN (LO INC: 49712-6) ORDER DATE: April 30, 2023 9:33:00 PM UTC Specimen Source: Plasma PERFORMING LAB: [address] [id number] Result Comment: Final Result Date: April 30, 2023 10:43:00 PM UTC (TECH: A/V) LOINC TEST FLAG [place] [address]-5 Procalcitonin [Mass/volume] in Serum or Plasma N <0.05 ng/ml 0.00 ng/ml - 0.50 ng/ml April 30, 2023 10:43:00 PM UTC (TECH: A/V) ORDER 600: LACTIC ACID (LOIN C: 24174-5) ORDER DATE: April 30, 2023 9:33:00 PM UTC Specimen Source: Plasma PERFORMING LAB: [address] [id number] Result Comment: Final Result Date: April 30, 2023 10:27:00 PM UTC (TECH: A/V) LOINC TEST FLAG [place]ULT [place] [address]-1 Lactate [Moles/volume] in Blood H 3.9 mmol/L 0.7 mmol/L - 2.1 mmol/L April 30, 2023 10:27:00 PM UTC (TECH: A/V) ORDER 700: LACTIC ACID 3 HIRO R (LOINC: 50377-2) ORDER DATE: April 30, 2023 10:27:00 PM UTC Specimen Source: Plasma PERFORMING LAB: [address] [id number] Result Comment: Final Result Date: May 01, 2023 12:52:00 AM UTC (TECH: A/V) LOINC TEST FLAG RESULT [place] [address]-6 Lactate [Mass/volume] in Serum or Plasma --2 hours post XXX challenge N 0.7 mmol/L 0.7 mmol/L - 2.1 mmol/L May 01, 2023 12:52:00 AM UTC (TECH: A/V) ORDER 1200: BASIC METABOLIC PANEL (LOINC: 19992-2) ORDER DATE: May 01, 2023 12:40:00 AM UTC Specimen Source: Serum PERFORMING LAB: [address] [id number] Result Comment: Final Result Date: May 01, 2023 11:56:00 AM UTC (TECH: GS) LOINC TEST FLAG RESULT REFERENCE RANGE UPDA ANTIONE BY 2951-2 Sodium [Moles/volume] in Serum or Plasma H 148 mmol/L 137 mmol/L - 147 mmol/L May 01, 2023 11:56:00 AM UTC (TECH: GS) 2823-3 Potassium [Moles/volume] in Serum or Plasma N 3.8 mmol/L 3.5 mmol/L - 5.1 mmol/L May 01, 2023 11:56:00 AM UTC (TECH: GS) 2075-0 Chloride [Moles/volume] in Serum or Plasma N 109 mmol/L 98 mmol/L - 110 mmol/L May 01, 2023 11:56:00 AM UTC (TECH: GS) 8-9 Carbon dioxide, total [Moles/volume] in Serum or Plasma N 22 mmol/L 21 mmol/L - 30 mmol/L May 01, 2023 11:56:00 AM UTC (TECH: GS) 39764-2 Anion gap in Serum or Plasma H 17 mmol/L 6 mmol/L - 14 mmol/L May 01, 2023 11:56:00 AM UTC (TECH: GS) 2345-7 Glucose [Mass/volume] in Serum or Plasma N 89 mg/dL 70 mg/dL - 115 mg/dL May 01, 2023 11:56:00 AM UTC (TECH: GS) 3094-0 Urea nitrogen [Mass/volume] in Serum or Plasma L 7 mg/dL 9 mg/dL - 20 mg/dL May 01, 2023 11:56:00 AM UTC ([employer]) 2160-0 Creatinine [Mass/volume] in Serum or Plasma N 1.1 mg/dL 0.5 mg/dL - 1.5 mg/dL May 01, 2023 11:56:00 AM UTC ([employer]) 3097-3 Urea nitrogen/Creatinin e [Mass Ratio] in Serum or Plasma L 6 RATIO 10 RATIO - 20 RATIO May 01, 2023 11:56:00 AM [place] ([employer]) 18559-8 Glomerular filtration rate/1.73 sq M.predicted N 78 mL/min >60 May 01, 2023 11:56:00 AM UT ([employer]) 96493-9 Osmolality of Serum or Plasma by calculation H 305 mOsmol/Kg 275 mOsmol/Kg - 301 mOsmol/Kg May 01, 2023 11:56:00 AM UT ([employer]) 46720-7 Calcium [Mass/volume] in Serum or Plasma L 8.3 mg/dL 8.5 mg/dL - 10.8 mg/dL May 01, 2023 11:56:00 AM UT (TECH: [employer]) ORDER 1300: PTT PARTIAL THRO MB TIME (LOINC: 59747-2) ORDER DATE: May 01, 2023 12:40:00 AM UT Specimen Source: Plasma PERFORMING LAB: [address] [id number] Result Comment: Final Result Date: May 01, 2023 11:58:00 AM UT (TECH: A/V) LOINC TEST FLAG RESULT [place] [address]-9 Activated partial thromboplastin time (aPTT) in Platelet poor plasma by Coagulation assay N 28.6 seconds 20 seconds - 34 seconds May 01, 2023 11:58:00 AM UT (TECH: A/V) ORDER 1400: PT PROTIME W INR (LOINC: 31619-8) ORDER DATE: May 01, 2023 12:40:00 AM UT Specimen Source: Plasma PERFORMING LAB: [address] [id number] Result Comment: Final Result Date: May 01, 2023 11:58:00 AM UTC (TECH: A/V) LOINC TEST FLAG RESULT [place] [address]-1 INR in Platelet poor plasma or blood by Coagulation assay N 10.6 seconds 9.0 seconds - 12.0 seconds May 01, 2023 11:58:00 AM UTC (TECH: A/V) 62570-7 INR in Platelet poor plasma by Coagulation assay --post heparin adsorption L 1.0 2.0 - 3.0 May 01, 2023 11:58:00 AM UTC (TECH: A/V) ORDER 1500: CBC W/ AUTO DIFF (LOINC: 29050-5) ORDER DATE: May 01, 2023 12:40:00 AM UT Specimen Source: Whole Blood PERFORMING LAB: [address] [id number] Result Comment: Final Result Date: May 01, 2023 12:11:00 PM UT (TECH: AEH) LOINC TEST FLAG RESULT REFERENCE RANGE UPDA ANTIONE BY 6690-2 Leukocytes [#/volume ] in Blood by Automated count H 17.03 K/uL 4.5 K/uL - 11.5 K/uL May 01, 2023 12:11:00 PM UTC (TECH: AEH) 789-8 Erythrocytes [#/volu me] in Blood by Automated count N 4.78 M/uL 4.0 M/uL - 5.4 M/uL May 01, 2023 12:11:00 PM UTC (TECH: AEH) 718-7 Hemoglobin [Mass/vol ume] in Blood N 15.1 g/dL 14.0 g/dL - 18.0 g/dL May 01, 2023 12:11:00 PM UTC (TECH: AEH) 4544-3 Hematocrit [Volume Fraction] of Blood by Automated count N 43.3 % 40 % - 54 % May 01 12:11:00 PM UTC (TECH: AEH) 787-2 Erythrocyte mean corpuscular volume [Entitic volume] by Automated count N 90.6 fL 80.0 fL - 100.0 fL May 01, 2023 12:11:00 PM UTC (TECH: AEH) 785-6 Erythrocyte mean corpuscular hemoglobin [Entitic mass] by Automated count N 31.6 pg 26.0 pg - 32.0 pg May 01 023 12:11:00 PM UTC (TECH: [employer]) 786-4 Erythrocyte mean corpuscular hemoglobin concentration [Mass/volume] by Automated count N 34.9 g/dL 32.0 g/dL - 36.0 g/dL May 01, 2023 12:11:00 PM UTC (TECH: AEH) 788-0 Erythrocyte distribu tion width [Ratio] by Automated count N 13.7 % 11.5 % - 14.5 % May 01 12:11:00 PM UTC (TECH: AEH) 777-3 Platelets [#/volume] in Blood by Automated count N 235 K/uL 142 K/uL - 424 K/uL [facility] 12:11:00 PM UTC (TECH: AEAmbrx) 62231-2 Platelet mean volume [Entitic volume] in Blood by Automated count H 10.3 fL 6.8 fL - 10.2 fL [facility] 2022 12:11:00 PM UTC (TECH: AEAmbrx) 73627-0 Neutrophils/100 leukocytes in Blood H 75.5 % 50 % - 70 % May 01, 2023 12:11:00 PM UTC (TECH: [employer]) 69637-0 Lymphocytes/100 leukocytes in Blood L 13.6 % 18.0 % - 42.0 % May 01, 2023 12:11:00 PM UTC (TECH: [employer]) 20472-2 Monocytes/100 leukoc ytes in Blood N 9.6 % 2.0 % - 11.0 % May 01 12:11:00 PM UTC (TECH: [employer]) 73206-6 Eosinophils/100 leukocytes in Blood L 0.5 % 1.0 % - 3.0 % May 01, 2023 12:11:00 PM UTC (TECH: [employer]) 12067-9 Basophils/100 leukoc ytes in Blood N 0.4 % 0.0 % - 2.0 % May 01 12:11:00 PM UTC (TECH: [employer]) 75965-9 Immature granulocytes/100 leukocytes in Blood by Automated count N 0.4 % 0.0 % - 0.8 % May 01 12:11:00 PM UTC (TECH: AE[employer]) 74278-6 Nucleated cells [#/volume] in Blood N 0.0 % May 01, 2023 12:11:00 PM UTC (TECH: [employer]) 57773-0 Neutrophils [#/volum e] in Blood N 12.85 K/uL May 01 12:11:00 PM UTC (TECH: AEH) 86277-0 Lymphocytes [#/volum e] in Blood N 2.32 K/uL May 01 12:11:00 PM UTC (TECH: AEH) 67680-1 Monocytes [#/volume] in Blood N 1.64 K/uL May 01 12:11:00 PM UTC (TECH: AEH) 40140-2 Eosinophils [#/volum e] in Blood N 0.09 K/uL May 01 12:11:00 PM UTC (TECH: AEH) 704-7 Basophils [#/volume] in Blood by Automated count N 0.06 K/uL [facility] 2022 12:11:00 PM UTC (TECH: AEAmbrx) 95997-8 Immature granulocyte s [#/volume] in Blood N 0.07 K/uL May 01, 2023 12:11:00 PM UTC (TECH: AEH) 16983-0 Nucleated cells [#/volume] in Blood N 0.00 k/uL May 01, 2023 12:11:00 PM UTC (TECH: AEH) 10596-7 Manual differential comment [interpretation] in Blood Narrative N YES May 01, 2023 12:11:00 PM UTC (TECH: AEAmbrx) 54927-7 Neutrophils/100 leukocytes in Blood H 73 % 50 % - 70 % May 01, 2023 12:11:00 PM UTC (TECH: AEH) 24457-6 Neutrophils.band form/100 leukocytes in Blood N 3 % 0 % - 5 % May 01 12:11:00 PM UTC (TECH: AEH) 02255-2 Lymphocytes/100 leukocytes in Blood L 16 % 18.0 % - 42.0 % May 01, 2023 12:11:00 PM UTC (TECH: AEAmbrx) 64780-9 Monocytes/100 leukoc ytes in Blood N 8 % 2 % - 11 % May 01 12:11:00 PM [facility] (TECH: [employer]) 9317-9 Platelet adequacy [Presence] in Blood by Light microscopy N ADEQUATE ADEQUATE May 01 12:11:00 PM [facility] (TECH: AEAmbrx) 49292-6 Platelet morphology finding [Identifier] in Blood N NORMAL NORMAL May 01 12:11:00 PM [facility] (TECH: AEAmbrx) LABORATORY NARRATIVE RESULTS Information is not available RADIOLOGY RESULTS ORDER 400: CT ABD AND PELVIS IV ONLY NO PO (LOINC: 49007-3) ORDER DATE: April 30, 2023 6:15:00 PM UT PATHOLOGY NARRATIVE RESULTS Information is not available MICROBIOLOGY RESULTS No Micro Labs/Results Exist for Patient BLOOD ADMIN RESULTS Information is not available TREATMENT PLAN DISCHARGE MEDICATIONS Status RXNORM Medication Dose Route Frequency Dates Comments U pdated By Continued [id number] Ibuprofen Oral Tablet 600 MG 600 MG BY MOUTH EVERY SIX HOURS NEEDED Prescribed : May 01, 2023 8:27:43 PM [facility] [id number] on May 01, 2023 8:27:43 PM UT Continued 769807 Cephalexin Oral Capsule 500 MG 1 TAB BY MOUTH TWICE A DAY Prescribed : May 01, 2023 8:17:13 PM [facility] [id number] on May 01, 2023 8:17:13 PM UT Continued [id number] PERCOCET 5-325 MG 1 TAB BY MOUTH EVERY SIX HOURS NEEDED Prescribed : May 01, 2023 8:58:08 PM [place] [id number] on May 01, 2023 8:58:08 PM [place] Continued 019014 amLODIPine (NORVASC) 5 MG BY MOUTH ONCE DAILY Prescribed : May 01, 2023 8:17:13 PM [facility] [id number] on May 01, 2023 8:17:13 PM [facility] PATIENT OPEN ORDERS Code System Description Frequency Occurrences Priority Start Date Ordering Physician Updated By Patient open order informati on is not available. SCHEDULED PROCEDURES Code System Description Status Scheduled Date Upd ated By Patient scheduled procedure information is not available. HOSPITAL COURSE HOSPITAL COURSE Note Title *Discharge Summary Date Of Service May 01, 2023 8: 55:37 PM UTC Created By [email or web address] on May 01, 2023 8:55:37 PM UTC Signed By [id number] on May 02, 2023 5:15:57 PM UT This is a 43 y/o male with P MHx of HTN, prior R ureteral stone with stent s/p stent removal approx 2 weeks ago who presents to ED with CC of recurrent right flank pain, n/v. No difficulty with urinary, no hematuria, no dysuria. CT scan shows severe hydronephrosis of the right kidney with apparent obstruction at the level of the UPJ. Urology consultedHopsital course day 2, UA negative. Urology took and placed stent. Obtained urine culture. Send with keflex 500mg po bid x 3 days. Pain control. Outpt f/up with urology. Encourage oral hydration. Otherwise HDS, and stable for dc home, no further needs. Strict return precautions discussed. Pt. verbalized understanding. Stable for dc home MEDICATIONS HOME MEDICATIONS Status RXNORM Medication Dose Route Frequency Dates Comments R eported By Updated By Active [id number] amLODIPine (NORVASC) 5.0 MG PO DAILY Last Dose: April 30, 2023 4:00:00 PM [facility] [id number] on April 30, 2023 10:00:34 PM [facility] DISCHARGE MEDICATIONS Status RXNORM Medication Dose Route Frequency Dates Comments Physic rhoda Updated By Continued Ibuprofen Oral Tablet 600 MG 600.0 MG BY MOUTH EVERY SIX HOURS NEEDED Prescrib ed: May 01, 2023 8:27:43 PM [facility] EDUARDO Andres MD [id number] on May 01, 2023 8:27:43 PM [facility] Continued [id number] Cephalexin Oral Capsule 500 MG 1.0 TAB BY MOUTH TWICE A DAY Prescrib ed: May 01, 2023 8:17:13 PM [facility] AMRCO KEATING PA-C [id number] on May 01, 2023 8:17:13 PM [facility] Continued [id number] PERCOCET 5-325 MG 1.0 TAB BY MOUTH EVERY SIX HOURS NEEDED Prescrib ed: May 01, 2023 8:58:08 PM [facility] EDUARDO Andres MD [id number] on May 01, 2023 8:58:08 PM [facility] Continued [id number] amLODIPine (NORVASC) 5.0 MG BY MOUTH ONCE DAILY Prescrib ed: May 01, 2023 8:17:13 PM [facility] MARCO KEATING PA-C [id number] on May 01, 2023 8:17:13 PM [facility] INPATIENT MEDICATIONS Status RXNORM Medication Dose Route Frequency Rate Quantity Dates Comments Physician Updated By Filipe inued [id number] morphine sulfate (PF) 4 MG/ML SOLN 4.0 MG IV PUSH ONE TIME ONLY Start: [facility] 2022 9:51:0 0 PM UTC End: [facility] 2022 9:51:0 0 PM UTC LYNN JEREZ MD INTERFAC ED on April 30, 2023 9:50:00 PM UTC Discont inued [id number] ondansetron (ZOFRAN) INJ 4 MG/2 ML SOLN 4.0 MG IV PUSH ONE TIME ONLY Start: [facility] 2022 9:51:0 0 PM UTC End: [facility] 2022 9:51:0 0 PM UTC LYNN JEREZ MD INTERFAC ED on April 30, 2023 9:50:00 PM UTC Discont inued [id number] cefTRIAXone (ROCEPHIN) 2 GM SOLR 2.0 GM ONE TIME ONLY Start: [facility] 2022 12:37: 00 AM UTC End: [facility] 2022 12:37: 00 AM UTC LYNN JEREZ MD INTERFAC ED on May 01, 2023 12:36:00 AM UTC Discont inued [id number] sodium chloride 0.9% MBP SOLN 100.0 ML INTRAV ENOUS ONE TIME ONLY Start: [facility] 2022 12:37: 00 AM UTC End: [facility] 2022 12:37: 00 AM UTC LYNN JEREZ MD INTERFAC ED on May 01, 2023 12:36:00 AM UTC Discont inued [id number] potassium chloride (K-DUR) 20 MEQ TBCR 60.0 MEQ BY MOUTH GIVE DOSE NOW Start: [facility] 2022 12:37: 00 AM UTC End: [facility] 2022 2:13:4 7 AM UTC JILLIAN MI MD [id number] on May 01, 2023 2:13:00 AM UTC Discont inued [id number] sodium chloride 0.9% FLUSH 10 ML SOLN 10.0 ML IV PUSH TWO TIMES A DAY (EACH SHIFT) Start: [facility] 2022 2:00:0 0 AM UTC End: [facility] 2022 8:58:0 8 PM UTC JILLIAN MI MD [id number] on May 02, 2023 5:20:00 AM UTC Discont inued [id number] sodium chloride 0.9% FLUSH 10 ML SOLN 10.0 ML IV PUSH NEEDED Start: [facility] 2022 12:37: 00 AM UTC End: [facility] 2022 8:58:0 8 PM UTC JILLIAN MI MD [id number] on May 02, 2023 5:20:00 AM UTC Discont inued [id number] ondansetron (ZOFRAN) INJ 4 MG/2 ML SOLN 4.0 MG IV PUSH EVERY FOUR HOURS NEEDED Start: [facility] 2022 12:37: 00 AM UTC End: [facility] 2022 8:58:0 8 PM UTC JILLIAN MI MD [id number] on May 02, 2023 5:20:00 AM UTC Discont inued [id number] ACETAMINOPH EN 325 MG TABS 650.0 MG BY MOUTH EVERY FOUR HOURS NEEDED Start: [facility] 2022 12:37: 00 AM UTC End: [facility] 2022 8:58:0 8 PM UTC JILLIAN MI MD [id number] on May 02, 2023 5:20:00 AM UTC Discont inued [id number] pantoprazol e (PROTONIX) 40 MG TBEC 40.0 MG BY MOUTH ONCE DAILY Start: [facility] 2022 2:00:0 0 PM UTC End: [facility] 2022 8:58:0 8 PM UTC JILLIAN MI MD [id number] on May 02, 2023 5:20:00 AM UTC Discont inued NOZIN NASAL ANTISEPTIC 1 EA SWAB 1.0 EA TO NARES TWICE A DAY Start: [facility] 2022 2:00:0 0 AM UTC End: [facility] 2022 8:58:0 8 PM UTC JILLIAN MI MD [id number] on May 02, 2023 5:20:00 AM UTC Discont inued [id number] morphine sulfate (PF) 2 MG/ML SOLN 2.0 MG IV PUSH EVERY FOUR HOURS NEEDED Start: [facility] 2022 12:41: 00 AM UTC End: [facility] 2022 8:58:0 8 PM UTC JILLIAN MI MD [id number] on May 02, 2023 5:20:00 AM UTC Discont inued [id number] pantoprazol e (PROTONIX) 40 MG SOLR 40.0 MG IV PUSH GIVE DOSE NOW Start: [facility] 2022 12:41: 00 AM UTC End: [facility] 2022 2:21:4 0 AM UTC JILLIAN MI MD [id number] on May 01, 2023 2:21:00 AM UTC Discont inued [id number] famotidine (PEPCID) 10 MG/ML SOLN 20.0 MG IV PUSH GIVE DOSE NOW Start: [facility] 2022 12:42: 00 AM UTC End: [facility] 2022 2:21:4 1 AM UTC JILLIAN MI MD [id number] on May 01, 2023 2:21:00 AM UTC Discont inued [id number] promethazin e (PHENERGAN) 25 MG/ML SOLN 12.5 MG IV PUSH EVERY FOUR HOURS NEEDED Start: [facility] 2022 12:42: 00 AM UTC End: [facility] 2022 8:58:0 8 PM UT JILLIAN MI MD [id number] on May 02, 2023 5:20:00 AM UTC Discont inued [id number] temazepam (RESTORIL) 15 MG CAPS 30.0 MG BY MOUTH AT BEDTIME NEEDED Start: [facility] 2022 2:00:0 0 AM UTC End: [facility] 2022 8:58:0 8 PM UTC JILLIAN MI MD [id number] on May 02, 2023 5:20:00 AM UTC Discont inued [id number] clonidine (CATAPRES) 0.1 MG TABS 0.1 MG BY MOUTH EVERY FOUR HOURS NEEDED Start: [facility] 2022 12:37: 00 AM UTC End: [facility] 2022 8:58:0 8 PM UTC JILLIAN MI MD [id number] on May 02, 2023 5:20:00 AM UTC Discont inued [id number] hydrALAZINE (APRESOLINE ) 20 MG/ML SOLN 10.0 MG IV PUSH EVERY FOUR HOURS NEEDED Start: [facility] 2022 12:37: 00 AM UTC End: [facility] 2022 8:58:0 8 PM UT JILLIAN MI MD [id number] on May 02, 2023 5:20:00 AM UTC Discont inued [id number] MEROPENEM 1 GM SOLR 1.0 GM INTRAV ENOUS EVERY EIGHT HOURS 200.0 ML/HR Start: [facility] 2022 11:00: 00 AM UTC End: [facility] 2022 8:58:0 8 PM UT JILLIAN MI MD [id number] on May 02, 2023 5:20:00 AM UTC Discont inued [id number] sodium chloride 0.9% MBP SOLN 100.0 ML INTRAV ENOUS EVERY EIGHT HOURS 200.0 ML/HR Start: [facility] 2022 11:00: 00 AM UTC End: [facility] 2022 8:58:0 8 PM UTC JILLIAN MI MD [id number] on May 02, 2023 5:20:00 AM UTC Discont inued [id number] PERCOCET 5-325 MG TABS 1.0 TAB BY MOUTH EVERY SIX HOURS NEEDED Start: [facility] 2022 12:37: 00 AM UTC End: [facility] 2022 9:39:0 0 PM UT JILLIAN MI MD [id number] on May 02, 2023 5:20:00 AM UTC Discont inued [id number] metoclopram latesha (REGLAN) 10 MG/2 ML SOLN 10.0 MG IV PUSH GIVE DOSE NOW Start: [facility] 2022 12:37: 00 AM UTC End: [facility] 2022 2:21:4 1 AM UT JILLIAN MI MD [id number] on May 01, 2023 2:21:00 AM UTC Discont inued [id number] sodium chlor. 0.45%+20 MEQ KCL 1000 ML SOLN 1000. 0 ML INTRAV ENOUS CONT 100.0 ML/HR Start: [facility] 2022 12:37: 00 AM UTC End: [facility] 2022 1:53:4 3 PM UTC JILLIAN MI MD [id number] on May 01, 2023 1:53:00 PM UTC Discont inued [id number] amLODIPine (NORVASC) 5 MG TABS 5.0 MG BY MOUTH ONCE DAILY Start: [facility] 2022 2:00:0 0 PM UTC End: [facility] 2022 9:39:0 0 PM UTC JILLIAN MI MD [id number] on May 02, 2023 5:20:00 AM UTC Discont inued [id number] sucralfate (CARAFATE) 1 GM TABS 1.0 GM BY MOUTH ONE TIME ONLY Start: [facility] 2022 1:21:0 0 AM UTC End: [facility] 2022 1:21:0 0 AM UTC LYNN JEREZ MD INTERFAC ED on May 01, 2023 1:20:00 AM UTC Discont inued [id number] potassium chloride (K-DUR) 20 MEQ TBCR 40.0 MEQ BY MOUTH GIVE DOSE NOW Start: [facility] 2022 2:13:0 0 AM UTC End: [facility] 2022 2:21:3 9 AM UTC JILLIAN MI MD [id number] on May 01, 2023 2:21:00 AM UTC Discont inued [id number] dextrose 5% 1000 ML SOLN 1000. 0 ML INTRAV ENOUS CONT 125.0 ML/HR Start: [facility] 2022 1:53:0 0 PM UTC End: [facility] 2022 8:58:0 8 PM UTC MARCO KEATING PA-C [id number] on May 02, 2023 5:20:00 AM UTC Discont inued [id number] fentaNYL (SUBLIMAZE) 0.05 MG/ML SOLN 100.0 MCG IV PUSH ONE TIME ONLY Start: [facility] 2022 2:51:0 0 PM UTC End: [facility] 2022 2:51:0 0 PM UTC JILLIAN MI MD INTERFAC ED on May 01, 2023 2:51:00 PM UTC Discont inued [id number] HYDROmorpho ne (DILAUDID) 1 MG/ML SOLN 1.0 MG IV PUSH ONE TIME ONLY Start: [facility] 2022 2:53:0 0 PM UTC End: [facility] 2022 2:53:0 0 PM UTC JILLIAN MI MD INTERFAC ED on May 01, 2023 2:51:00 PM UTC Discont inued [id number] midazolam (VERSED) 2 MG/2 ML SOLN 2.0 MG IV PUSH ONE TIME ONLY Start: [facility] 2022 2:53:0 0 PM UTC End: [facility] 2022 2:53:0 0 PM UTC JILLIAN IM MD INTERFAC ED on May 01, 2023 2:51:00 PM UTC Discont inued [id number] KETAMINE HCL 100 MG/ML SOLN 500.0 MG ONE TIME ONLY Start: [facility] 2022 2:55:0 0 PM UTC End: [facility] 2022 2:55:0 0 PM UTC JILLIAN MI MD INTERFAC ED on May 01, 2023 2:54:00 PM UTC Discont inued lidocaine (XYLOCAINE) 2% UROJET GEL 10.0 ML TOPICA L ONE TIME ONLY Start: [facility] 2022 3:21:0 0 PM UTC End: [facility] 2022 3:21:0 0 PM UTC JILLIAN MI MD INTERFAC ED on May 01, 2023 3:21:00 PM UTC Discont inued [id number] fentaNYL (SUBLIMAZE) 0.05 MG/ML SOLN 25.0 MCG IV PUSH EVERY FIVE MINUTES NEEDED Start: [facility] 2022 4:02:0 0 PM UTC End: [facility] 2022 4:38:4 6 PM UTC SHON Gatica CRNA [id number] on May 01, 2023 4:38:00 PM UTC Discont inued [id number] morphine sulfate (PF) 10 MG/ML SOLN 5.0 MG IV PUSH EVERY FIVE MINUTES NEEDED Start: [facility] 2022 4:02:0 0 PM UTC End: [facility] 2022 4:38:4 6 PM UTC SHON Gatica CRNA [id number] on May 01, 2023 4:38:00 PM UTC Discont inued [id number] HYDROmorpho ne (DILAUDID) 0.5 MG/ 0.5ML SOLN 0.5 MG IV PUSH EVERY FIVE MINUTES NEEDED Start: [facility] 2022 4:02:0 0 PM UTC End: [facility] 2022 4:38:4 7 PM UTC SHONKYLE KAPADIA nE TRAFFIC SIGNAL REPAIRER [id number] on May 01, 2023 4:38:00 PM UTC Discont inued [id number] ondansetron (ZOFRAN) INJ 4 MG/2 ML SOLN 4.0 MG IV PUSH EVERY 15 MINUTES NEEDED Start: [facility] 2022 4:02:0 0 PM UTC End: [facility] 2022 4:38:4 7 PM UTC SHONKYLE Gatica TRAFFIC SIGNAL REPAIRER [id number] on May 01, 2023 4:38:00 PM UTC Discont inued NORCO 5-325 MG TABS 1.0 TAB BY MOUTH NEEDED Start: [facility] 2022 4:02:0 0 PM UTC End: [facility] 2022 4:38:4 7 PM UTC SHON STEFFI Gatica TRAFFIC SIGNAL REPAIRER [id number] on May 01, 2023 4:38:00 PM UTC Discont inued [id number] DEXAMETHASO NE SODIUM PHOSPHATE 8.0 MG IV PUSH ONE TIME ONLY 0.333 MG/HR Start: [facility] 2022 2:45:0 0 PM UTC End: [facility] 2022 9:39:0 0 PM UTC JILLIAN MI MD [id number] on May 03, 2023 2:56:00 PM UTC Discont inued [id number] LIDOCAINE HCL (PF) 2 % SOLN 5.0 ML ONE TIME ONLY 0.208 ML/HR Start: [facility] 2022 2:45:0 0 PM UTC End: [facility] 2022 9:39:0 0 PM UTC JILLIAN MI MD [id number] on May 03, 2023 2:56:00 PM UTC Discont inued [id number] ONDANSETRON HCL 4 MG/2ML SOLN 4.0 MG IV PUSH ONE TIME ONLY 0.167 MG/HR Start: 2022 2:46:0 0 PM UTC End: 2022 9:39:0 0 PM UTC JILLIAN MI MD [id number] on May 03, 2023 2:56:00 PM UTC Discont inued [id number] DIPRIVAN 200 MG/20ML EMUL 200.0 MG INTRAV ENOUS ONE TIME ONLY 8.333 MG/HR Start: 2022 2:46:0 0 PM UTC End: [facility]2022 9:39:0 0 PM UTC JILLIAN MI MD [id number] on May 03, 2023 2:56:00 PM UTC SOCIAL HISTORY SOCIAL HISTORY SNOMED-CT Social History Element Description Effective Dates Offered Cessation Comment UpdatedBy [id number] Smoking Status Unknown If Ever Smoked SOCIAL HISTORY - Gender Sex: Male SOCIAL HISTORY - Sexual Behavior Sexual Orientation Gender Identity SNOMED-CT Description SNO MED -CT Description Activity Level No of Partners Partner Type UpdatedBy VITAL SIGNS PATIENT VITAL SIGNS This section displays the mo st recent value for each vital sign as of July 01, 2023 10:32:19 PM [place] Loinc Code Vital Sign Activity Date Result Updated By 8302-2 Body height May 01 1:51:16 AM UTC 177.8 cm (70.0 in) [id number] on May 01, 2023 1:51:[place] [address]-4 Body mass index (BMI ) [Ratio] May 01, 2023 1:51:16 AM UTC 23.314 kg/m2 [id number] on May 01, 2023 1:51:16 AM UT 3140-1 Body Surface Area Derived From Formula May 01, 2023 1:51:16 AM UTC 1.911 m2 [id number] on May 01, 2023 1:51:16 AM UT 8310-5 Body temperature May 01 4:43:00 PM UTC 97.6 [degF] [id number] on May 01, 2023 4:43:[place] [address]-4 Body weight Measured April 1:51:16 AM UTC 73.709 kg (163.0 lb) [id number] on May 01, 2023 1:51:16 AM UT 8462-4 Diastolic blood pressure May 01, 2023 5:10:00 PM UTC 90.0 mm[Hg] [id number] on May 01, 2023 5:10:14 PM UT 8867-4 Heart rate May 01 5:10:00 PM UTC 82 /min [id number] on May 01, 2023 5:10:14 [place] [address]-9 Oxygen saturation in Blood May 01, 2023 5:10:00 PM UTC 98.0 % [id number] on May 01, 2023 5:10:14 PM UT 9279-1 Respiratory rate May 01 4:43:00 PM UTC 16 /min [id number] on May 01, 2023 4:43:14 PM UT 8480-6 Systolic blood pressure May 01, 2023 5:10:00 PM UTC 153.0 mm[Hg] [id number] on May 01, 2023 5:10:14 PM UT PEDIATRIC GROWTH CHART - VITAL SIGNS This section displays Head C ircumference Percentile, Weight for Length Percentile and BMI Percentile Loinc Code Pediatric Measure Age (Months) Result Updat ed By PROCEDURES PATIENT PROCEDURES Procedure information is not available. PROCEDURE NOTE Note Title Operative/Procedure Note Date Of Service May 01, 2023 4: 21:49 PM UT Created By [id number] on May 01, 2023 4:21:49 PM UT Signed By [id number] on May 01, 2023 4:27:07 PM UT Pre-Procedure Diagnosis Hydronephrosis Post- Procedure Diagnosis Acquired hydronephrosis due to ureteropelvic junction obstruction Procedure / Surgery None Cystoscopy with right retrograde pyelogram and right stent placement Anesthesia Type General anesthesia Estimated Blood Loss 0 Complications None Indication Patient is a 43-year-old white male with recurrent right-sided flank pain. CT reveals severe right hydronephrosis with likely UPJ obstruction. Patient was treated several weeks ago for the same symptoms and findings. A right-sided ureteral stent was left in for several weeks and removed about 3 weeks ago with recurrent pain. Procedure Description / Findings Patient taken to the operating room after informed consent was obtained. His placed on the operating table in supine position and general anesthesia administered. He has been given Rocephin last evening. Sequential compression devices placed and patient placed into the dorsal lithotomy position. Patient was prepped and draped in the standard surgical fashion. After a time-out the 21 [place]tarian rigid cystoscope passed into the urethra and into the bladder without difficulty. Bladder was examined in a systematic fashion. There was no mucosal abnormalities, stones, diverticula or trabeculation. The right ureteral orifice did not show any efflux of urine from it. A 5 Gibraltarian ureteral catheter passed into the distal ureter and contrast injected in a retrograde fashion. The ureter followed a normal course and caliber proximally with again there was a tortuous loop in the ureter and severe right-sided hydronephrosis. The ureteral catheter was passed proximally and a zip wire was passed through the ureteral catheter and around the tortuous ureter in the ureteral catheter was passed over the wire without difficulty and into the renal pelvis. The zip wire was then removed and our 0.035 guidewire passed through the ureteral catheter in the ureteral catheter removed. A 6 x 28 Gib[place]tarian ureteral stent then passed over the guidewire. The tortuous loop did not straighten out with placement of the stent. The string and guidewire removed. There was clear efflux of urine noted from the ureteral stent. There was no evidence of debris or blood or pus. A urine culture was sent. The bladder drained and the scope removed. Uro jet placed into the urethra for comfort measures. Patient tolerated procedure well. Specimens Urine culture Tubes/Drains 6 x 28 Gibraltarian right ureteral stent Implants None Disposition of Patient Stable Electronically signed by MARC WHITE MD on 3221 HEALTH CONCERNS Problems Concern Status Health Concern problem infor mation not available. Smoking Status Status Years Used Consumed packs p er day Health Concern smoking histo ry information not available. Family History Concern Status Health Concern family histor y information not available. ENCOUNTERS ENCOUNTER INFORMATION Reason for Visit HYDRONEPHROSIS WURET ERAL STRICTURE Admission May 01, 2023 12:37:00 AM [place] [id number] Discharge May 01, 2023 9:39:00 PM [facility] DISCHARGED TO HOME OR SELF CARE ENCOUNTER DIAGNOSES Notes information is not karishma ilable. Code System Diagnosis Onset Date Diagnosis information is not available. ABSTRACT DIAGNOSES Code System Diagnosis Updated By N13.6 ICD10 PYONEPHROSIS [id number] on 2022 8:45:52 PM [facility] N13.6 ICD10 PYONEPHROSIS [id number] on 2022 8:45:52 PM UTC I10 ICD10 ESSENTIAL (PRIMARY) HYPERTEN NA [id number] on May 06, 2023 8:45:52 PM UTC E86.0 ICD10 DEHYDRATION [id number] on 2022 8:45:52 PM UTC E87.6 ICD10 HYPOKALEMIA [id number] on 2022 8:45:52 PM UTC Z79.899 ICD10 OTHER FPC (CURRENT) DR VENKATA THERAPY [id number] on May 06, 2023 8:45:52 PM UTC F17.210 ICD10 NICOTINE DEPENDE NCE, CIGARETTES, UNCOMPLICATED [id number] on May 06, 2023 8:45:52 PM UTC J44.9 ICD10 CHRONIC OBSTRUCT OUMOU PULMONARY DISEASE, UNSPECIFIED [id number] on May 06, 2023 8:46:24 PM UTC CARE TEAM Care Furnace Combination Analyst Role HIWOT WALSH Primary Attending CHRISTOPHER TRAN Consulting HIWOT WALSH Admitting CHRISTOPHER TRAN Surgeon HIWOT WALSH Referring [facility] DISCHARGE INSTRUCTION DISCHARGE INSTRUCTION Encounter [id number] Admit Date May 01, 2023 12 :37:00 AM UTC Discharge Date May 01, 2023 9: 39:00 PM UTC HISTORY AND PHYSICAL NOTE HISTORY AND PHYSICAL NOTE Note Title *Admission History a nd Physical Date Of Service May 01, 2023 12 :50:39 AM UTC Created By [id number] on May 01, 2023 12:50:39 AM UTC Signed By [id number] on May 01, 2023 11:44:32 AM UTC Chief Complaint = Right flank Pain = Nausea and vomiting HPI / Subjective Patient is a A 43-year-old male with past medical history of hypertension and prior history of right ureteral stone required stent placement and subsequent removal who presented to [facility] Emergency Department on 04/30/2023 secondary to severe right flank pain, nausea and vomiting.Patient states that he had a stent placed a month and a half ago by Dr. Tran for a problem with his right ureter. This morning he woke up and right flank vomiting T-max at home was 90.7. Called Dr. Tran recommended he come here for evaluation. Patient denies any hematuria. No difficulty urinating, no dysuria.. Past Medical History Calculus in renal pelvis Former heavy tobacco smoker Microscopic hematuria Benign essential hypertension Obstructive hydronephrosis Past Surgical History Hernia repair Appendectomy Home Medications amLODIPine (NORVASC) Dose: 5 MG BY MOUTH ONCE DAILY Allergies metals - Rash Family History Parents Father Alive Mother Social History Denies: Tobacco abuse, Alcohol Use, Drug abuse Review of Systems Narrative Constitutional: No Weight Change, No Fever, No Chills, No Night Sweats, No Fatigue, No Malaise HEENT: NC/AT, No blurred vision, No double vision, No Nasal Congestion, No Sinus Pain, No Hoarseness, No sore throat, No Rhinorrhea, No Dysphagia Neck: No neck pain, No Lymphadenopathy Cardiovascular: No Chest Pain, No Palpitations, No tachycardia, No bradycardia, NO WATTS, No Orthopnea, No Edema Respiratory: No Cough, No Sputum, No Hemoptysis, No Wheezing, No Dyspnea Gastrointestinal: + Abdominal Pain, + Nausea, + Vomiting, No Diarrhea, No Constipation, No Heartburn, No Anorexia, No Dysphagia, No Hematochezia, No Melena, Genitourinary: Right flank pain. No painful urination, No Hematuria, No Incontinence Musculoskeletal: No Arthralgias, No Myalgias, No Joint Swelling, No Joint Stiffness, No Back Pain, No Neck Pain, No Injury History Skin: No Skin Lesions, No Pruritis Neuro: No Weakness, No Numbness, No Paresthesias, No Loss of Consciousness, No Syncope, No Dizziness, No Headache, Psych: No Anxiety/Panic, No Depression, No Hallucinations Heme/Lymph: No Bruising, No Bleeding, No Lymphadenopathy Endocrine: No Polyuria, No Polydipsia, No Temperature Intolerance Physical Exam Vital Signs 1632 BP 153 / 101 1631 HR 95 O2Sat 98 1629 HR 95 RR 16 BP 153 / 101 O2Sat 96 WT 77.11 Narrative General: Patient is irritable due to right flank pain HEENT: mucous membranes are dry Neck: No tenderness, No lymphadenopathy Cardiovascular: RRR no m/r/g, no JVD, no carotid bruits Lungs: CTA bilaterally, No w/r/r Abdomen: Nontender, Nondistended, BS+ X4, No guarding, Extremeties: No edema, cyanosis or clubbing Skin: warm, dry, normal for ethnicity Musculoskeletal: - 5/5 strength in UE and LE bilaterally, normal range of motion Neurological: Alert and oriented x 3, CN 2-12 grossly intact. No loss of sensation Psychiatry: No depression, No abnormal affect, Normal mood, Normal Cognition Lab Results 1933 Chemistry LACTATE3 0.7 1815 Urinalysis COLOR Yellow APPEAR Clear GLUCOSE Negative BILIRUBI Negative KETONE Negative SP GRAV 1.010 BLOOD Trace-Intact PH 8.0 PROTEIN Negative UROBIL 0.2 NITRITE Negative LEUK EST Negative CULTURE? Not Indicated UR MICRO Yes RBC Rare WBC None Seen EPITH 0-2 BACTERIA Negative 1651 Chemistry LACTATE 3.9 (H) PROCALCI <0.05 1334 Reference Lab IG# 0.13 1334 Hematology WBC 23.96 (H) RBC 5.59 (H) HGB 17.6 HCT 48.1 MCV 86.0 MCH 31.5 MCHC 36.6 (H) RDW 13.3 PLT 391 MPV 9.2 NEUT% 82.4 (H) LYMPH % 9.5 (L) MONO% 7.3 EOS% 0.0 (L) BASO% 0.3 IG% 0.5 NRBC% 0.0 NEUT# 19.72 LYMPH # 2.28 MONO# 1.76 EOS# 0.01 BASO# 0.06 NRBC# 0.00 MAN DIFF Yes SEGS 86 (H) LYMPH 7 (L) MONO 7 5 Chemistry SODIUM 141 K 3.4 (L) CHLORIDE 108 CO2 18 (L) AGAP 15 (H) GLUCOSE 116 (H) BUN 9 CREA 1.2 BUN/CREA 8 (L) GFR 70 OSMO SHANT 293 TP 8.1 ALB 5.1 (H) CALCIUM 9.8 BILI T 0.8 AST 26 ALT 28 ALP [address] ABD AND PELVIS IV ONLY NO PO TECHNIQUE: null CLINICAL HISTORY: Abd pain without fever COMPARISON: null FINDINGS: CT abdomen and pelvis with contrast Comparison: None Findings: No consolidation or effusion. Severe hydronephrosis of the right kidney. Relative diminished enhancement and delayed excretion of the right kidney. No renal volume loss. 2 mm nonobstructive calculus within the left mid kidney. Remaining abdominal organs are unremarkable. There are no calcified gallstones. No bowel obstruction, pneumoperitoneum, or pneumatosis. Unremarkable pelvic contents. Prior appendectomy. The bones are intact. IMPRESSION: 1. Severe hydronephrosis of the right kidney with apparent obstruction at the level of the ureteropelvic junction. No associated calculus. 2. 2 mm nonobstructive calculus within the left kidney. ECG EKG showed normal sinus rhythm without evidence of ischemia Assessments Pyelonephritis Hydronephrosis Plan = Right UPJ Obstruction [ right ureteropelvic junction]; supportive treatment. Gentle IV hydration. ED medical provider spoke to Dr. Christopher Tran with Urology. =Severe Right hydronephrosis with obstruction at the Right ureteropelvic junction. No associated calculus. = 2 mm nonobstructive calculus within the left kidney. I informed the patient with this stone in the left kidney = Right Obstructive Uropathy with history of right ureteral stent placement and subsequent removal = Acute Right pyelonephritis Urine cultures collected. I placed the patient on IV meropenem. Patient was given IV ceftriaxone in the ED. Gentle IV hydration. = Intractable nausea and vomiting secondary to right UPJ obstruction Supportive treatment. Symptom control. IV hydration. = Right flank pain IV hydration. Pain Control. = reactiveleukocytosis I placed the patient on IV fluids and IV meropenem. = volume depletion with dehydration: IV hydration. = Mild hypokalemia. Serum potassium 3.4. I order oral potassium chloride. = Essential hypertension I resumed his home amlodipine. Monitor vital signs and manage accordingly = GI prophylaxis. I placed the patient on Protonix while in the hospital = VTE/ DVT prophylaxis. I placed the patient on sequential compression device. Patient is ambulatory and otherwise healthy. No Lovenox or heparin to avoid induction of genitourinary bleeding. Inpatient - 2 Midnight Stay Negative for The patient is being admitted with expected length of stay of at least 2 midnights Discharge Plan Upon discharge I anticipate the patient will go home Time spent with Patient 47 minutes Electronically signed by JILLIAN MI MD on 0644 CONSULTATION NOTE CONSULTATION NOTE Note Title *Consult History and Physical Date Of Service May 01, 2023 3: 23:43 PM UTC Created By [id number] on May 01, 2023 3:23:43 PM UTC Signed By [id number] on May 01, 2023 3:26:56 PM UTC Chief Complaint Right flank pain HPI / Subjective Patient is a 43-year-old white male with a history of right-sided hydronephrosis who underwent cystoscopy, right retrograde pyelogram and right stent placement a few weeks ago. Stent was removed about 3 weeks ago and patient now has the recurrence of right-sided flank pain. Presented to the emergency room yesterday where CT scan shows severe right-sided hydronephrosis with no apparent stone. Previous retrograde showed a very tortuous proximal ureter but no obstructing stone or stricture. Patient did find relief with the stent. Past Medical History Calculus in renal pelvis Former heavy tobacco smoker Microscopic hematuria Benign essential hypertension Obstructive hydronephrosis Past Surgical History Hernia repair Appendectomy Home Medications amLODIPine (NORVASC) Dose: 5 MG BY MOUTH ONCE DAILY Allergies metals - Rash Social History alcohol use No Known Use drug use No Known Use marital status Single Family History Parents Father Alive Mother Review of Systems Narrative Positive nausea Negative fever, chills, hematuria Physical Exam Narrative Well-nourished white male in no apparent distress Head is normocephalic Neck is symmetric Normal respiratory effort Abdomen soft nondistended Alert and oriented x3 No cyanosis clubbing edema Impression Hydronephrosis Recommendations 43-year-old white male with recurrent right flank pain. CT scan shows recurrence of right-sided hydronephrosis. Patient admitted for pain control. His films were reviewed. No apparent stone is present. We discussed proceeding back to the operating room for retrograde pyelogram and stent placement. Electronically signed by MARC WHITE MD on 1026 DISCHARGE SUMMARY NOTE DISCHARGE SUMMARY NOTE Note Title Nurse Discharge Note Date Of Service May 01, 2023 9: 51:34 PM UTC Created By [email or web address] on May 01, 2023 9:51:34 PM UTC Signed By [id number] on May 01, 2023 9:52:21 PM UTC Cognitive Status Alert, Oriented x4 Functional Status No functional deficits identified Discharge Diagnosis Pyelonephritis Hydronephrosis Acquired hydronephrosis due to ureteropelvic junction obstruction Electronically signed by MAJO LUND RN on 0272 Note Title *Discharge Summary Date Of Service May 01, 2023 8: 55:37 PM UTC Created By [email or web address] on May 01, 2023 8:55:37 PM UTC Signed By [id number] on May 02, 2023 5:15:57 PM UTC Addendum 40 min This visit was performed by both myself and the mid-level practitioner. I personally evaluated and examined the patient. I performed all aspects of the medical decision making for this patient to include choosing medications, ordering tests, ordering procedures. I also provided it and performed all communication with the consulting physicians and other healthcare providers involved in the care of this patient. I personally reviewed interpreted data from the radiological studies and the laboratory tests. I performed a counseling to patient in regards to the provided care and discussed the diagnosis and the plan of care with family/ caregivers. Plan of care was understood by the nursing staff. Electronically signed by EDUARDO Andres MD on 1215 Admit Date Admit Date: Discharge Date Discharge Date: 05/01/23 Patient Care Team Admitting Provider: JILLIAN MI MD Attending Provider:AISHWARYA CLARK MD Consulting Provider:MARC WHITE MD Chief Complaint flank pain, nausea/vomiting Discharge Diagnosis Acquired hydronephrosis due to ureteropelvic junction obstruction Pyelonephritis Hydronephrosis Hospital Course This is a 43 y/o male with PMHx of HTN, prior R ureteral stone with stent s/p stent removal approx 2 weeks ago who presents to ED with CC of recurrent right flank pain, n/v. No difficulty with urinary, no hematuria, no dysuria. CT scan shows severe hydronephrosis of the right kidney with apparent obstruction at the level of the UPJ. Urology consulted Hopsital course day 2, UA negative. Urology took and placed stent. Obtained urine culture. Send with keflex 500mg po bid x 3 days. Pain control. Outpt f/up with urology. Encourage oral hydration. Otherwise HDS, and stable for dc home, no further needs. Strict return precautions discussed. Pt. verbalized understanding. Stable for dc home Procedures and Surgeries None Imaging Results CT ab 04/30: 1. Severe hydronephrosis of the right kidney with apparent obstruction at the level of the ureteropelvic junction. No associated calculus. 2. 2 mm nonobstructive calculus within the left kidney. CXR 04/30: no acute findings. Vital Signs 1210 HR 82 BP 153 / 90 O2Sat 98 1143 T 97.6 HR 82 RR 16 BP 134 / 87 O2Sat 97 0555 T 98.5 RR 16 Intake and Output previous current encounter day day cumulative Intake 3229 930 8503 Output - - - Balanc [phone] Physical Exam General: Well appearance, well developed, NAD, afebrile, HDS HEENT: atraumatic, normocephalic. Conjunctiva and lids WNL. Moist oral mucosa. Neck: No lymphadenopathy, supple, full ROM, no rigidity Pulmonary: CTAB, no tachypnea, normal air entry Cardiology: Normal sinus rhythm, no murmur, rubs, or gallops Gastro: Ab soft and nontender, mild right flank pain. normal bowel sounds x4 quadrants Skin: No rashs, wounds, or pallor. Cap refill < 2 seconds. Musck: Full ROM x4 extremities Neuro: ANOx3, no acute focal deficit Psych: no SI, HI, no auditory or visual hallucinations Lab Results 0642 Chemistry SODIUM 148 (H) K 3.8 CHLORIDE 109 CO2 22 AGAP 17 (H) GLUCOSE 89 BUN 7 (L) CREA 1.1 BUN/CREA 6 (L) GFR 78 OSMO SHANT 305 (H) CALCIUM 8.3 (L) 0642 Hematology WBC 17.03 (H) RBC 4.78 HGB 15.1 HCT 43.3 MCV 90.6 MCH 31.6 MCHC 34.9 RDW 13.7 PLT 235 MPV 10.3 (H) NEUT% 75.5 (H) LYMPH % 13.6 (L) MONO% 9.6 EOS% 0.5 (L) BASO% 0.4 IG% 0.4 NRBC% 0.0 NEUT# 12.85 LYMPH # 2.32 MONO# 1.64 EOS# 0.09 BASO# 0.06 NRBC# 0.00 MAN DIFF Yes SEGS 73 (H) BANDS 3 LYMPH 16 (L) MONO 8 PLT EST Adequate PLTMORPH Normal 0642 Coagualtion PROTIME 10.6 INR 1.0 (L) PTT 28.6 0642 Reference Lab IG# 0.07 2049 Rad Diagnostic X-Ray [id number] 1933 Chemistry LACTATE3 0.7 1814 Urinalysis COLOR Yellow APPEAR Clear GLUCOSE Negative BILIRUBI Negative KETONE Negative SP GRAV 1.010 BLOOD Trace-Intact PH 8.0 PROTEIN Negative UROBIL 0.2 NITRITE Negative LEUK EST Negative CULTURE? Not Indicated UR MICRO Yes RBC Rare WBC None Seen EPITH 0-[address] Scanning [id number] 165 Chemistry LACTATE 3.9 (H) PROCALCI <0.05 Assessment/Plan 1. Right hydroneprhosis - Stent placed by Dr. Tran 05/01 - Urine cx pending - Keflex 500mg po BID x 3 days - Outpt fup wit PCP and urology in 1-2 weeks - pain control - Cr stable, elytes stable Condition at Discharge Stable Discharge Medications <style size='11'>amLODIPine (NORVASC)</style><style size='9' forecolor='#[id number]'>5 MG BY MOUTH ONCE DAILY </style> <style size='11'>Cephalexin Oral Capsule 500 MG</style><style size='9' forecolor='#[id number]'>1 TAB BY MOUTH TWICE A DAY (ePrescribed by MARCO KEATING PA-C on 8087)</style> <style size='11'>Ibuprofen Oral Tablet 600 MG</style><style size='9' forecolor='#[id number]'>600 MG BY MOUTH EVERY SIX HOURS NEEDED for MODERATE PAIN: 4-6 PAIN SCALE </style> <style size='11'>PERCOCET 5-325 MG</style><style size='9' forecolor='#549170'>1 TAB BY MOUTH EVERY SIX HOURS NEEDED for MODERATE PAIN: 4-6 PAIN SCALE (ePrescribed by EDUARDO Andres MD on 4092)</style> Discharge Instructions Activity: as tolerated O2: none Diet: renal Take meds as prescribed, as stated above Follow-Up F/up with with PCP in 1-2 weeks F/up with Dr. Tran in 1-2 weeks Time spent with Patient Labs and imaging reviewed. Plan and assessment discussed with Dr. Clark. Time spent with patient 40 minutes. Electronically signed by MARCO KEATING PA-C on 1612 I hereby attest the note that was written on this patient accurately reflects the notations made when patient was examined. 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 Role on Team Status Start Date End Date Update d By MARC WHITE MD Surgeon normal April 6:00:00 AM [facility] May 01, 2023 9:39:00 PM UTC [id number] on May 06, 2023 8:46:41 PM [facility] MARC WHITE MD Consulting normal April 4:57:39 AM [facility] May 01, 2023 9:39:00 PM UTC [id number] on May 06, 2023 8:46:41 PM [facility] JILLIAN MI MD Referring normal April 1:21:42 AM [facility] April 30, 2023 5:00:00 AM UTC [id number] on May 06, 2023 8:46:41 PM [facility] JILLIAN MI MD Attending normal April 1:21:42 AM [facility] April 30, 2023 5:00:00 AM UTC [id number] on May 06, 2023 8:46:41 PM [facility] JILLIAN MI MD Admitting normal April 1:21:42 AM [facility] April 30, 2023 5:00:00 AM UTC [id number] on May 06, 2023 8:46:41 PM UTC LYNN SOLITARIO MD Referring normal April 30 11:44:17 PM UTC May 01, 2023 1:21:42 AM UTC [id number] on May 06, 2023 8:46:41 PM [facility] LYNN JEREZ MD Attending normal April 30 11:44:17 PM UTC May 01, 2023 1:21:42 AM UTC [id number] on May 06, 2023 8:46:41 PM [facility] LYNN JEREZ MD Admitting normal April 30 11:44:17 PM UTC May 01, 2023 1:21:42 AM UTC [id number] on May 06, 2023 8:46:41 PM [facility] normal April 30, 2023 5:53:13 PM [place] April 30, 2023 5:00:00 AM UTC [id number] on May 06, 2023 8:46:41 PM [facility]
== END 2023-07-13 23:59 ==
LOC: RT 12:55
PROVIDERS: PCP Nurse Practitioner Family; Visit Provider Nurse Practitioner Family
DX: I48.91 Unspecified atrial fibrillation (principal); J44.9 Chronic obstructive pulmonary disease, unspecified; Z72.0 Tobacco use
CPT/HCPCS: 93306

== ENCOUNTER 2023-12-13 08:24 | Emergency (ER) | payer OTHER, SELFPAY ==
[2023-12-13 08:30] VITALS: BP 138/102; PULSE 86; RESP 18; TEMP 36.4; O2SAT 96; BMI 24.6
--- NOTE | 2023-12-13 08:42 | ED_ITS ---
Discharge Plan Disposition Patient Disposition: Home Health Service Condition: Good Prescriptions Prescriptions: No Action amlodipine 5 mg tablet 5 mg PO DAILY Clinical Impressions Clinical Impression: Gastroenteritis Discharge ED Provider: Sandy Simpson [facility] General Stated complaint: vomitting Mode of Arrival: Ambulatory Source of Information: Patient Limitations: No Limitations Time Seen by Provider: 12/13/23 08:41 Description of Symptoms (Recalled from Triage Doc. by RN): PATIENT C/O VOMITING SINCE Tuesday HEENT Symptoms (Recalled from RN notes): No Resp Symptoms (Recalled from RN notes): No Skin Symptoms (Recalled from RN notes): No MS Symptoms (Recalled from RN notes): No Functional Status (Recalled from RN notes): WNL History of Present Illness Provider Complaint: Pt reports that he started vomiting late Tuesday night, early Tuesday morning. He reports that he has started having diarrhea now as well. He denies taking anything for his symptoms. Pt states that he has not taken his blood pressure medication yet today. Related Data Home Medications Medication Instructions Recorded Confirmed amlodipine 5 mg tablet 5 mg PO DAILY 12/13/23 12/13/23 Allergies Allergy/AdvReac Type Severity Reaction Status Date / Time contact metal agent AdvReac Verified 05/23/23 08:58 oats AdvReac Verified 05/23/23 08:58 Worker's Comp Is this a Worker's Comp case?: No [facility] Disclaimer: The information contained in this section may have been updated after the patient was seen, as this information can be updated by other users. Medical History (Updated 12/13/23 @ 08:51 by Sandy Simpson APRN) Anxiety COPD (chronic obstructive pulmonary disease) Hypertension Surgical History (Updated 12/13/23 @ 08:41 by Bella Lacy RN) History of appendectomy Social History Smoking Status: Former smoker tobacco type: cigarettes packs per day: 1 second hand exposure: Yes alcohol intake: never current occupational status: employed Travel in the last 8 weeks: None household members: significant other housing: other current occupational exposures/hazards: No caffeine: Yes ROS Obtained: Yes All systems reviewed & no additional complaints except as documented Constitutional Constitutional: Reports system reviewed and no additional complaints, except as documented and Reports malaise Eyes Eyes: Reports system reviewed and no additional complaints, except as documented ENT Ears, Nose, Mouth, and Throat: Reports system reviewed and no additional complaints, except as documented Cardiovascular Cardiovascular: Reports system reviewed and no additional complaints, except as documented Respiratory Respiratory: Reports system reviewed and no additional complaints, except as documented and Reports cough Gastrointestinal Gastrointestingal: Reports system reviewed and no additional complaints, except as documented, cramping, diarrhea, nausea and vomiting Genitourinary Male Genitourinary: Reports system reviewed and no additional complaints, except as documented Musculoskeletal Musculoskeletal: Reports system reviewed and no additional complaints, except as documented Integumentary/Breasts Skin/Breast: Reports system reviewed and no additional complaints, except as documented Neurologic Neurologic: Reports system reviewed and no additional complaints, except as documented Endocrine Endocrine: Reports system reviewed and no additional complaints, except as documented Hematologic/Lymphatic Henatologic/Lymphatic: Reports system reviewed and no additional complaints, except as documented Allergic/Immunologic Allergic/Immunologic: Reports system reviewed and no additional complaints, except as documented Physical Exam General General appearance: alert Comment: ill appearing Head Head exam: atraumatic and normocephalic Eye Eye exam: Present normal appearance ENT ENT exam: Present normal exam and normal oropharynx Neck Neck exam: Present normal inspection; Absent lymphadenopathy Chest Chest inspection: Present normal inspection and symmetric chest wall rise Respiratory Respiratory exam: Present normal lung sounds bilaterally Cardiovascular Cardiovascular exam: Present regular rate, normal rhythm and normal heart sounds Abdominal Exam Abdominal exam: Present soft, tenderness and hyperactive bowel sounds Abdominal tenderness: Present diffuse and mild Extremities Exam Extremities exam: Present normal inspection Back Exam Back exam: Present normal inspection Neurological Exam Neurological exam: Present alert and oriented X3 Psychiatric Psychiatric exam: Present normal affect and normal mood Skin Skin exam: Present warm, dry and intact Lymphatic Lymphatic Findings: no adenopathy Medical Decision Making Aqu[place] Inquiry Pt receiving controlled substance: No Aqu[place] was queried for this patient: No Vital Signs: 12/13/23 08:30 Temperature 97.5 F L Temperature Source Oral Pulse Rate [Left Brachial] 86 Respiratory Rate 18 Blood Pressure [Left Arm] 138/102 H Blood Pressure Mean [Left Arm] 114 Blood Pressure Source [Left Arm] Automatic Cuff Blood Pressure Position [Left Arm] Sitting 02 Sat by Pulse Oximetry 96 Oxygen Delivery Method Room Air recheck BP 134/98
[2023-12-13 08:52] VITALS: BP 138/102; PULSE 86; RESP 18; TEMP 36.4; O2SAT 96
== END 2023-12-13 08:53 | disposition home health service (06) ==
PROVIDERS: Emergency Provider Nurse Practitioner Family; PCP Internal Medicine Adolescent Medicine
DX: K52.9 Noninfective gastroenteritis and colitis, unspecified (principal); R11.2 Nausea with vomiting, unspecified
CPT/HCPCS: 99212; 99214; G0463

== ENCOUNTER 2024-01-03 07:45 | Emergency (ER) | payer OTHER, SELFPAY ==
[2024-01-03] VITALS (9 sets, daily range): BP systolic 125–195; BP diastolic 89–101; PULSE 75–104; RESP 8–18; TEMP 36.8; O2SAT 94–98; BMI 23.6
--- NOTE | 2024-01-03 07:44 | ECG_ITS ---
APPROVED REPORT Exam: Resting ECG HR:96 bpm ECG Measurements Heart Rate 96 AXES IN 150 P 79 QRSd 101 QRS 65 QT 360 T 67 QTc 413 Conclusion SINUS RHYTHM POSSIBLE RIGHT ATRIAL ENLARGEMENT [0.25mV P-WAVE] LEFT ATRIAL ENLARGEMENT [-0.15mV P-WAVE IN V1/V2] NONSPECIFIC ST & T-WAVE ABNORMALITY ABNORMAL ECG Electronically signed by : JOSE MACK, 01/03/2024 16:23:39
[2024-01-03] MEDS: NITROGLYCERIN 0.4MG SL TABLET 0.4 MG SL ×2 (07:55→08:00)
--- NOTE | 2024-01-03 08:09 | CT_ITS ---
FINAL REPORT TECHNIQUE: Thin section axial CT with contrast with multiplanar reconstruction. This study was performed with techniques to keep radiation doses as low as reasonably achievable (ALARA). Individualized dose reduction techniques using automated exposure control or adjustment of mA and/or kV according to the patient's size were employed. CLINICAL HISTORY: chest pain rad to back and down L arm, L hand numb FINDINGS: The thoracic aorta is widely patent. The great vessel origins are widely patent. There is no evidence of dissection. The thoracic aorta is normal in caliber without evidence of aneurysm. No pulmonary mass or infiltrate is present. There is no significant pleural effusion. There is no significant pericardial effusion. No mediastinal or hilar adenopathy is present. IMPRESSION: No evidence of thoracic aortic aneurysm or dissection. Reviewed, Interpreted and Dictated by Evelia Min MD Transcribed by Leticia Bryant Authenticated and . [facility]
--- NOTE | 2024-01-03 08:09 | CT_ITS ---
FINAL REPORT CLINICAL HISTORY: L hand numb/tingling, dizziness FINDINGS: CT NECK ANGIO, WITHOUT AND WITH CONTRAST TECHNIQUE: Thin section axial CT with IV contrast supplemented with 3D MIP reconstruction. NASCET criteria and technique was utilized during interpretation. FINDINGS: Aortic arch: Arch shows no significant narrowing. Great vessel origins are widely patent. Right carotid: No significant stenosis is seen of the cervical common or internal carotid artery. Left carotid: No significant stenosis is seen of the cervical common or internal carotid artery. Vertebrals: Left vertebral artery is dominant. No significant stenosis is present. IMPRESSION: No significant stenosis of the cervical carotid arteries This study was performed using automated techniques to achieve radiation exposure as low as reasonably Reviewed, Interpreted and Dictated by Evelia Min MD Transcribed by Tiara Milian Authenticated and [facility]
--- NOTE | 2024-01-03 08:09 | CT_ITS ---
FINAL REPORT CLINICAL HISTORY: L hand numb/tingling, dizziness FINDINGS: CTA HEAD TECHNIQUE: Thin section axial CT with contrast with 3D MIP reconstruction. FINDINGS: No aneurysm is seen. Major intracranial vessels are patent without significant stenosis. . IMPRESSION: Unremarkable This study was performed using automated techniques to achieve radiation exposure as low as reasonably achievable Reviewed, Interpreted and Dictated by Evelia Min MD Transcribed by Tiara Milian Authenticated and [facility]
--- NOTE | 2024-01-03 08:09 | CT_ITS ---
FINAL REPORT TECHNIQUE: Axial CT images of the head were obtained without contrast. This study was performed with techniques to keep radiation doses as low as reasonably achievable (ALARA). Individualized dose reduction techniques using automated exposure control or adjustment of mA and/or kV according to the patient's size were employed. CLINICAL HISTORY: L hand numb/tingling, dizziness FINDINGS: No abnormal density is seen. Ventricles are normal. There is no hemorrhage. No mass effect is seen. Bone windows show no evidence of fracture. IMPRESSION: No acute findings Reviewed, Interpreted and Dictated by Evelia Min MD Transcribed by Tiara Milian Authenticated and [facility]
--- NOTE | 2024-01-03 08:11 | HMH.EDGENADL ---
Discharge Plan Disposition Patient Disposition: Home, Self-Care Condition: Good Prescriptions Prescriptions: New naproxen 500 mg tablet 500 mg PO BID Qty: 20 0RF No Action amlodipine 5 mg tablet 5 mg PO DAILY Referrals Follow up/Referrals: Reid Arndt MD [Staff Physician] - See instructions Provider,MD George [Primary Care Provider] - See instructions Activity Restrictions/Add. Instructions Additional Instructions/Restrictions: You were evaluated in the emergency department today. At this time, your workup is reassuring. It is possible your pain could be coming from referred pain from your neck or back through pinched nerve. I recommend close follow-up with your primary care provider. I also recommend close follow-up with cardiology. administrative support specialist your prescription for anti-inflammatory and take as prescribed to see if this alleviates your symptoms. Return to the emergency department for new or worsening symptoms. Clinical Impressions Clinical Impression: Chest pain, Numbness and tingling in left hand Stand Alone Forms Stand Alone Forms: Work/School Release Instructions Patient Instructions: DI for Atypical Chest Pain, DI for Cervical Radiculopathy Discharge ED Provider: Fozia Watkins General Adult HPI General Chief complaint: Chest Pain Stated complaint: chest pain Time Seen by Provider: 01/03/24 07:48 History of Present Illness HPI narrative: This patient is a 43-year-old male with a history of hypertension, GERD, COPD, tobacco dependence, hydronephrosis of right kidney status post surgical structural repair, and appendectomy presenting to the emergency department for evaluation with concern for chest pain. Patient states that on , he started having some chest pain that radiates down his left arm. He has had progressively worsening pain, radiating into his back, left shoulder, and left arm since then. He also notes that he has had numbness and tingling of the first 3 fingers of his left hand. He also notes general weakness and lightheadedness. No falls or traumatic injuries related to this. He denies experiencing any like this in the past. No history of drug use. No other concerns noted at this time. Related Data Home Medications Medication Instructions Recorded Confirmed amlodipine 5 mg tablet 5 mg PO DAILY 12/13/23 12/13/23 Previous Rx's Medication Instructions Recorded naproxen 500 mg tablet 500 mg PO BID #20 tabs 01/03/24 Allergies Allergy/AdvReac Type Severity Reaction Status Date / Time contact metal agent AdvReac Verified 05/23/23 08:58 oats AdvReac Verified 05/23/23 08:58 PFSH [facility] Disclaimer: The information contained in this section may have been updated after the patient was seen, as this information can be updated by other users. Medical History Anxiety COPD (chronic obstructive pulmonary disease) Hypertension Surgical History History of appendectomy Social History Smoking Status: Current every day smoker tobacco type: cigarettes packs per day: 1 second hand exposure: Yes alcohol intake: never current occupational status: employed Travel in the last 8 weeks: None household members: significant other housing: other current occupational exposures/hazards: No caffeine: Yes ROS Obtained: Yes All systems reviewed & no additional complaints except as documented Physical Exam General General appearance: alert Comment: Uncomfortable appearing Head Head exam: atraumatic and normocephalic Eye Eye exam: Present normal appearance, PERRL and EOMI ENT ENT exam: Present normal exam, normal oropharynx, mucous membranes moist and normal external ear exam Neck Neck exam: Present normal inspection, full ROM and trachea midline; Absent tenderness Chest Chest inspection: Present normal inspection and symmetric chest wall rise; Absent tenderness Respiratory Respiratory exam: Present normal lung sounds bilaterally; Absent respiratory distress, wheezes, stridor or accessory muscle use Cardiovascular Cardiovascular exam: Present normal rhythm and tachycardia Abdominal Exam Abdominal exam: Present soft; Absent distention, tenderness or guarding Extremities Exam Extremities exam: Present normal inspection, full ROM and normal capillary refill; Absent tenderness or edema Back Exam Back exam: Present normal inspection and full ROM; Absent tenderness Neurological Exam Neurological exam: Present alert, oriented X3, CN II-XII intact and normal gait; Absent motor sensory deficit Psychiatric Psychiatric exam: Present normal affect and normal mood Skin Skin exam: Present warm and dry Medical Decision Making Medical Records Medical records reviewed: Yes I reviewed the patient's medical records. Aquiles Inquiry Pt receiving controlled substance: No Vital Signs: 01/03/24 07:46 01/03/24 07:54 01/03/24 07:56 Temperature 98.2 F Temperature Source Oral Pulse Rate 90 94 H Pulse Rate [Left Radial] 90 Respiratory Rate 18 14 13 Blood Pressure 146/101 H 150/97 H Blood Pressure [Right Arm] 195/90 H Blood Pressure Mean [Right Arm] 125 Blood Pressure Source [Right Arm] Automatic Cuff Blood Pressure Position [Right Arm] Sitting 02 Sat by Pulse Oximetry 98 96 95 Oxygen Delivery Method Room Air Room Air Room Air 01/03/24 08:00 01/03/24 08:30 01/03/24 09:00 Temperature Temperature Source Pulse Rate 104 H 89 82 Pulse Rate [Left Radial] Respiratory Rate 8 L 18 16 Blood Pressure 143/95 H 140/89 142/92 H Blood Pressure [Right Arm] Blood Pressure Mean [Right Arm] Blood Pressure Source [Right Arm] Blood Pressure Position [Right Arm] 02 Sat by Pulse Oximetry 94 L 95 95 Oxygen Delivery Method Room Air Room Air Room Air 01/03/24 10:00 01/03/24 10:30 01/03/24 11:05 Temperature 98.2 F Temperature Source Pulse Rate 78 75 75 Pulse Rate [Left Radial] Respiratory Rate 15 13 14 Blood Pressure 125/90 135/89 136/92 H Blood Pressure [Right Arm] Blood Pressure Mean [Right Arm] Blood Pressure Source [Right Arm] Blood Pressure Position [Right Arm] 02 Sat by Pulse Oximetry 97 96 Oxygen Delivery Method Room Air Room Air Room Air Lab Data Lab results reviewed: Yes I reviewed the patient's lab results. Lab Results 01/03/24 07:50: WBC 11.0 H, RBC 5.46, Hgb 17.8, Hct 50.7, MCV 93.0, MCH 32.6 H, MCHC 35.0, RDW 14.9, Plt Count 373, MPV 7.6, Neut % (Auto) 66.7, Lymph % (Auto) 23.6, Sierra % (Auto) 6.0, Eos % (Auto) 2.5, Baso % (Auto) 1.3, Neut # (Auto) 7.4, Lymph # (Auto) 2.6, Sierra # (Auto) 0.7, Eos # (Auto) 0.3, Baso # (Auto) 0.1, Sodium 140, Potassium 3.2 L, Chloride 109 H, Carbon Dioxide 24, Anion Gap 10.2, BUN 9, Creatinine 0.80, Estimated Creat Clear 126, Estimated GFR 106, Est GFR ( Amer) 128, Glucose 96, Calcium 9.1, Total Bilirubin 0.8, AST 35, ALT 34, Alkaline Phosphatase 66, Troponin I < 0.01, Total Protein 7.1, Albumin 4.5, Globulin 2.6, Albumin/Globulin Ratio 1.7, Lipase 51 01/03/24 10:12: Troponin I < 0.01 01/03/24 07:50 01/03/24 07:50 Orders (Tests/Meds): ED MEDICATIONS Discontinued Medications Generic Name Dose Route Start Last Admin Trade Name Frenoemy PRN Reason Stop Dose Admin Acetaminophen 1,000 mg 01/03/24 08:10 01/03/24 08:58 Acetaminophen 500mg Tab PO 01/03/24 08:11 1,000 mg ONCE ONE Administration Aspirin 324 mg 01/03/24 08:14 01/03/24 08:14 Aspirin 81mg Chewable Tablet PO 01/03/24 08:15 243 mg ONCE ONE Administration Iopamidol 100 ml 01/03/24 09:14 01/03/24 09:17 Iopamidol-370 (76%);100ml Bottle IV 01/03/24 09:15 100 ml ONCE ONE Administration Iopamidol 100 ml 01/03/24 09:15 01/03/24 09:18 Iopamidol-370 (76%);100ml Bottle IV 01/03/24 09:16 100 ml ONCE ONE Administration Ketorolac Tromethamine 15 mg 01/03/24 08:10 01/03/24 09:00 Ketorolac 30mg/Ml Vial IV 01/03/24 08:11 15 mg ONCE ONE Administration Morphine Sulfate 4 mg 01/03/24 08:10 01/03/24 09:00 Morphine 4mg/Ml Syringe IV 01/03/24 08:11 4 mg ONCE ONE Administration Nitroglycerin 0.4 mg 01/03/24 08:10 01/03/24 08:00 Nitroglycerin 0.4mg Sl Tablet SL 02/02/24 08:09 0.4 mg Q5MINP PRN Administration Chest Pain Ondansetron HCl 4 mg 01/03/24 08:11 01/03/24 08:59 Ondansetron 4mg/2ml Vial IV 01/03/24 08:12 4 mg ONCE ONE Administration Sodium Chloride 40 ml 01/03/24 09:14 01/03/24 09:16 0.9 % Sodium Chloride 50 Ml Vial IV 01/03/24 09:15 40 ml ONCE ONE Administration Sodium Chloride 10 ml 01/03/24 09:14 01/03/24 09:17 Sodium Chloride 0.9% 10ml Syr (Rad Only) IV 01/03/24 09:15 10 ml ONCE ONE Administration Sodium Chloride 40 ml 01/03/24 09:15 01/03/24 09:17 0.9 % Sodium Chloride 50 Ml Vial IV 01/03/24 09:16 40 ml ONCE ONE Administration Sodium Chloride 10 ml 01/03/24 09:15 01/03/24 09:17 Sodium Chloride 0.9% 10ml Syr (Rad Only) IV 01/03/24 09:16 10 ml ONCE ONE Administration ORDERS Category Date Time Status CT angio head Stat Cat Scan 01/03/24 08:[address] angio neck Stat Cat Scan 01/03/24 08:[address] head/brain wo con Stat Cat Scan 01/03/24 08:09 Completed CTA Chest [CT angio chest - dissection] Stat Cat Scan 01/03/24 08:09 Completed Complete Blood Count Auto Diff Stat Lab 01/03/24 07:50 Completed Comprehensive Metabolic Panel Stat Lab 01/03/24 07:50 Completed Lipase Stat Lab 01/03/24 07:50 Completed Trop I [Troponin I] Stat Lab 01/03/24 07:50 Completed Troponin I Q3H Lab 01/03/24 10:12 Completed ECG Data Tracing #1: I reviewed this ECG and interpreted as documented below: Normal sinus rhythm with a ventricular rate of 96 bpm. Some motion artifact noted. No acute ST changes concerning for ischemia. Normal axis and intervals. ECG initial impression date: 01/03/24 ECG initial impression time: 07:46 Medical Decision Narrative: In summary, this patient is a 43-year-old male presenting to the Emergency Department for evaluation of chest pain, upper back/left shoulder pain, and left hand numbness and tingling. Differential diagnoses considered include but are not limited to ACS, aortic dissection, cervical radiculopathy, thoracic radiculopathy, pneumothorax, pneumonia, pleurisy. Ruling out the most morbid conditions drove assessment. It should be noted patient's history includes hypertension and tobacco dependence which are not at goal therapy. This complicates all aspects of care by increasing patient's risk for morbidity. On exam, the patient is very uncomfortable appearing. He arrives significantly hypertensive and tachycardic. He was given nitroglycerin x 2 with no improvement in the symptoms. He has diminished sensation of the first through third years of his left hand, but otherwise he is neurologically intact. Workup included CBC, CMP, troponin, lipase, CT head without contrast, CT angiogram head, neck, and chest. EKG was obtained and is reassuring. Patient was given oral aspirin, IV Toradol, IV morphine, oral Tylenol, and IV Zofran for symptomatic improvement. I independently interpreted CT scan prior to the radiologist read and noted no obvious acute stroke, no obvious spine fracture, and no obvious aortic dissection. Please see their read for final interpretation. Labs were obtained that demonstrated negative initial troponin. Patient does have very mild leukocytosis which is nonspecific. He also has mild hypokalemia.. On reassessment, patient had good improvement after administration of interventions above. He is resting comfortably and is neurologically intact. Vitals reassuring on cardiac telemetry. Second troponin also came back negative, so patient was deemed to be appropriate for discharge. Given this, patient was deemed to be appropriate for discharge. Strict return precautions were given as well as instructions for close follow-up with primary care and cardiology. He was given trial of naproxen for symptomatic improvement. Critical Care Critical Care Time Critical Care Time: No
[2024-01-03] MEDS: ASPIRIN 81MG CHEWABLE TABLET 324 MG PO (08:14)
[2024-01-03 08:23] LABS: Basophils # 0.1 K/mm3 (0-0.2); Basophils % 1.3 % (0.1-2.0); Eosinophils # 0.3 K/mm3 (0.0-0.4); Eosinophils % 2.5 % (0.1-12.0); Hematocrit 50.7 % (42.0-52.0); Hemoglobin 17.8 g/dL (14.1-18.0); Lymphocytes # 2.6 K/mm3 (0.7-4.5); Lymphocytes % 23.6 % (10-50); Mean Corpuscular Hemoglobin 32.6 pg (27.0-31.2); Mean Platelet Volume 7.6 fl (7.4-10.4); Monocytes # 0.7 K/mm3 (0.1-1.0); Neutrophils # 7.4 K/mm3 (1.8-7.8); Neutrophils % 66.7 % (37.0-80.0); Platelet Count 373 K/mm3 (142-424); Red Blood Count 5.46 M/mm3 (4.60-6.20); Red Cell Distribution Width 14.9 % (11.5-17.5)
[2024-01-03 08:29] LABS: Alanine Aminotransferase 34 U/L (12-78); Albumin Level 4.5 g/dl (3.5-5.0); Albumin/Globulin Ratio 1.7 (1.1-1.8); Alkaline Phosphatase 66 U/L (38-126); Anion Gap 10.2 mEq/L (5-15); Aspartate Amino Transferase 35 U/L (17-59); Bilirubin,Total 0.8 mg/dl (0.2-1.3); Blood Urea Nitrogen 9 mg/dl (9-20); Calcium 9.1 mg/dl (8.4-10.2); Carbon Dioxide 24 mmol/L (22.0-30.0); Chloride 109 mmol/L (98-107); Creatinine Clearance Estimated 126 mL/min (50-200); Estimated Glomerular Filt Rate 106 ml/min (>60); GFR (African American) 128 ML/MIN (>60); Globulin 2.6 g/dL (1.3-3.2); Glucose 96 mg/dl (74-100); Lipase 51 U/L (23-300); Potassium 3.2 mmoL/L (3.5-5.1); Sodium 140 mmol/L (136-145); Total Protein,Serum 7.1 g/dl (6.3-8.2)
[2024-01-03 08:47] LABS: Troponin I < 0.01 ng/ml (0.00-0.034)
[2024-01-03] MEDS: ACETAMINOPHEN 500MG TAB 1000 MG PO (08:58)
[2024-01-03] MEDS: ONDANSETRON 4MG/2ML VIAL 4 MG IV (08:59)
[2024-01-03] MEDS: KETOROLAC 30MG/ML VIAL 15 MG IV (09:00)
[2024-01-03] MEDS: MORPHINE 4MG/ML SYRINGE 4 MG IV (09:00)
[2024-01-03] MEDS: 0.9 % SODIUM CHLORIDE 50 ML VIAL 40 ML IV ×2 (09:16→09:17)
[2024-01-03] MEDS: SODIUM CHLORIDE 0.9% 10ML SYR (RAD ONLY) 10 ML IV ×2 (09:17)
[2024-01-03] MEDS: IOPAMIDOL-370 (76%);100ML BOTTLE 100 ML IV ×2 (09:17→09:18)
[2024-01-03 10:46] LABS: Troponin I < 0.01 ng/ml (0.00-0.034)
== END 2024-01-03 11:06 | disposition home or self-care (01) ==
PROVIDERS: Emergency Provider Emergency Medicine
DX: R07.9 Chest pain, unspecified (principal); E87.6 Hypokalemia; R20.2 Paresthesia of skin; I10 Essential (primary) hypertension; F17.210 Nicotine dependence, cigarettes, uncomplicated; J44.9 Chronic obstructive pulmonary disease, unspecified
CPT/HCPCS: 70450; 70496; 70498; 71275; 80053; 83690; 84484; 85025; 93005; 96374; 96375; 99285; J1885; J2270; J2405; Q9967

== ENCOUNTER 2024-03-30 10:25 | Emergency (ER) | payer OTHER, SELFPAY ==
[2024-03-30 10:42] VITALS: BP 152/95; PULSE 91; RESP 20; TEMP 36.7; O2SAT 98; BMI 24.3
--- NOTE | 2024-03-30 10:57 | ED_ITS ---
Discharge Plan Disposition Patient Disposition: Home, Self-Care Condition: Good Prescriptions Prescriptions: New azithromycin [Zithromax] 250 mg tablet 250 mg PO UD DOSE PK Qty: 6 0RF Rx Instructions: Take two (2) tablets today, then one (1) tablet days #2 thru #5 benzonatate 100 mg capsule 100 mg PO TIDP PRN (Reason: Cough) Qty: 30 0RF No Action amlodipine 5 mg tablet 5 mg PO DAILY Referrals Follow up/Referrals: Aaron Ojeda MD [Primary Care Provider] - See instructions Activity Restrictions/Add. Instructions Additional Instructions/Restrictions: Drink plenty of fluids. Take tylenol or ibuprofen for pain or fever. Take the medications as directed. Follow up with your regular doctor. GO TO THE ER FOR ANY WORSENING SYMPTOMS Clinical Impressions Clinical Impression: Sinusitis, acute, Acute viral syndrome Stand Alone Forms Stand Alone Forms: Work/School Release Instructions Patient Instructions: Sinusitis, DI for Sinusitis Print Language Print Language: Moroccan Discharge ED Provider: Wilton Kelly [facility] General Stated complaint: vomiting, abd pain, diarrhea, Mode of Arrival: Ambulatory Source of Information: Patient Time Seen by Provider: 03/30/24 10:41 Description of Symptoms (Recalled from Triage Doc. by RN): N/V/D, MARTINEZ AND COUGHING BROWNISH DRAINAGE UP HEENT Symptoms (Recalled from RN notes): Yes Resp Symptoms (Recalled from RN notes): Yes Skin Symptoms (Recalled from RN notes): No MS Symptoms (Recalled from RN notes): No Functional Status (Recalled from RN notes): WNL Related Data Home Medications ?Medication ?Instructions ?Recorded ?Confirmed amlodipine 5 mg tablet 5 mg PO DAILY 03/30/24 03/30/24 Previous Rx's ?Medication ?Instructions ?Recorded azithromycin 250 mg tablet 250 mg PO UD DOSE PK #6 tabs 03/30/24 (Zithromax) benzonatate 100 mg capsule 100 mg PO TIDP PRN Cough #30 caps 03/30/24 Allergies Allergy/AdvReac Type Severity Reaction Status Date / Time contact metal agent AdvReac Verified 05/23/23 08:58 oats AdvReac Verified 05/23/23 08:58 Worker's Comp Is this a Worker's Comp case?: No [facility] Disclaimer: The information contained in this section may have been updated after the patient was seen, as this information can be updated by other users. Medical History Anxiety COPD (chronic obstructive pulmonary disease) Hypertension Surgical History History of appendectomy Social History Smoking Status: Current every day smoker tobacco type: cigarettes packs per day: 1 second hand exposure: Yes alcohol intake: never current occupational status: employed Travel in the last 8 weeks: None household members: significant other housing: other current occupational exposures/hazards: No caffeine: Yes ROS Obtained: Yes All systems reviewed & no additional complaints except as documented Constitutional Constitutional: Reports poor appetite Eyes Eyes: Reports system reviewed and no additional complaints, except as documented ENT Ears, Nose, Mouth, and Throat: Reports as per HPI Cardiovascular Cardiovascular: Reports system reviewed and no additional complaints, except as documented and Denies chest pain Respiratory Respiratory: Denies shortness of breath, Reports chest congestion, Reports cough, Denies stridor and Denies wheezing Gastrointestinal Gastrointestingal: Reports system reviewed and no additional complaints, except as documented; Denies abdominal pain, diarrhea or vomiting Musculoskeletal Musculoskeletal: Reports system reviewed and no additional complaints, except as documented and Denies arthralgias Integumentary/Breasts Skin/Breast: Reports system reviewed and no additional complaints, except as documented and Denies rash Neurologic Neurologic: Denies paresthesias Allergic/Immunologic Allergic/Immunologic: Denies wheezing Physical Exam General General appearance: alert and in no apparent distress Eye Eye exam: Present normal appearance, PERRL and EOMI ENT ENT exam: Present mucous membranes moist and normal external ear exam Expanded ENT Exam External ear exam: Present normal external inspection TM/Canal exam: Bilateral TM: erythema and bulging Nose exam: Absent sinus tenderness Nasal speculum exam: Bilateral: normal Mouth exam: Present normal external inspection; Absent drooling Teeth exam: Present normal inspection Throat exam: Present tonsillar erythema and tonsillomegaly Neck Neck exam: Present normal inspection, full ROM and trachea midline; Absent tenderness, lymphadenopathy or thyromegaly Chest Chest inspection: Present normal inspection and symmetric chest wall rise; Absent tenderness or rash Respiratory Respiratory exam: Present normal lung sounds bilaterally; Absent respiratory distress, wheezes, stridor or accessory muscle use Cardiovascular Cardiovascular exam: Present regular rate, normal rhythm and normal heart sounds Abdominal Exam Abdominal exam: Present soft; Absent distention, tenderness, guarding, rebound or rigidity Extremities Exam Extremities exam: Present normal inspection, full ROM and normal capillary refill; Absent tenderness or calf tenderness Back Exam Back exam: Present normal inspection and full ROM; Absent tenderness Neurological Exam Neurological exam: Present alert and oriented X3 Psychiatric Psychiatric exam: Present normal affect and normal mood Skin Skin exam: Present warm, dry, intact and normal color Lymphatic Lymphatic Findings: no adenopathy Medical Decision Making Medical Records Medical records reviewed: No I reviewed the patient's medical records. Screening: Per USPSTF and CDC recommendations, given the prevalence of disease in our region, it is our hospital?s policy to screen for HIV and viral Hepatitis for all patients aged 18 and over and those with ongoing risk factors. Aquiles Inquiry Pt receiving controlled substance: No Vital Signs: 03/30/24 10:42 Temperature 98.1 F Temperature Source Oral Pulse Rate [Left Brachial] 91 H Respiratory Rate 20 Blood Pressure [Left Arm] 152/95 H Blood Pressure Mean [Left Arm] 114 02 Sat by Pulse Oximetry 98
[2024-03-30 11:04] LABS: UTC Influenza A Antigen Negative (Negative); UTC Influenza B Antigen Negative (Negative); UTC Strep Screen (Rapid) Negative (Negative)
[2024-03-30 11:35] VITALS: BP 152/95; PULSE 91; RESP 20; TEMP 36.7
== END 2024-03-30 11:38 | disposition home or self-care (01) ==
PROVIDERS: Emergency Provider Nurse Practitioner Family; PCP Internal Medicine Adolescent Medicine
DX: J01.90 Acute sinusitis, unspecified (principal)
CPT/HCPCS: 87635; 87804; 87880; 99213; G0381

== ENCOUNTER 2025-05-20 10:02 | Outpatient (CLI) | payer OTHER, SELFPAY ==
--- NOTE | 2025-05-20 10:04 | XR_ITS ---
PROCEDURE INFORMATION: Exam: XR Chest Exam date and time: 05/20/2025 10:05 AM Age: 45 years old Clinical indication: Pain; Cough and shortness of breath; Chest pressure; PT states he has copd, emphysema; Additional info: Chest congestion TECHNIQUE: Imaging protocol: Radiologic exam of the chest. Views: 2 views. COMPARISON: CT ANGIO CHEST 01/03/2024 9:19 AM FINDINGS: Lungs: No consolidation or lung nodules. Lungs are hyperinflated. Pleural spaces: No pleural effusion. No pneumothorax. Heart/Mediastinum: No abnormalities. No cardiomegaly. No pulmonary vascular congestion. Bones/joints: No fractures or bone lesions. IMPRESSION: No acute findings in the chest. No interval change.
== END 2025-05-20 23:59 ==
LOC: RAD 10:02
PROVIDERS: PCP Internal Medicine Adolescent Medicine; Visit Provider Nurse Practitioner
DX: R09.89 Other specified symptoms and signs involving the circulatory and respiratory systems (principal); R05.9 Cough, unspecified; R06.02 Shortness of breath; R07.89 Other chest pain
CPT/HCPCS: 71046